=== PATIENT | male | born 1955 | race Caucasian/White ===

== ENCOUNTER → 2021-05-21 12:45 | Outpatient (BNVA) | payer MEDICARE, MEDICAID, SELFPAY | PROVIDERS: PCP Internal Medicine; Visit Provider Nurse Practitioner Family | DX: M47.22 Other spondylosis with radiculopathy, cervical region (principal); M79.18 Myalgia, other site; M17.0 Bilateral primary osteoarthritis of knee; M19.011 Primary osteoarthritis, right shoulder | CPT/HCPCS: 99202 ==

== ENCOUNTER 2021-05-22 11:46 | Outpatient (REF) | payer MEDICARE, MEDICAID, SELFPAY | END 2021-05-22 11:47 | disposition home or self-care (01) | LOC: HO.LAB 11:46 | PROVIDERS: PCP Internal Medicine; Visit Provider Nurse Practitioner Family | DX: Z13.89 Encounter for screening for other disorder (principal) ==

== ENCOUNTER 2021-05-28 17:40 | Outpatient (REF) | payer MEDICARE, MEDICAID, SELFPAY ==
--- NOTE | ~2021-05-28 | MR_ITS ---
EXAMINATION: MR CERVICAL SPINE WITHOUT CONTRAST CLINICAL INFORMATION: Other spondylosis with radiculopathy. COMPARISON: None available. TECHNIQUE: MRI of the cervical spine was performed using routine sequences without contrast. FINDINGS: The cervical vertebral bodies maintain normal heights and alignment. There is advanced disc height loss at C4-C5, C5-C6, C6-C7, and C7-T1. Prominent anterior endplate osteophytes are seen from C4 to C7. Possible myelomalacia seen in the right hemicord at the C4-C5 level. The imaged portions of the intracranial contents appear normal. The extraspinal soft tissues appear normal. SPINAL LEVELS: C2-C3: No posterior disc abnormality. No spinal canal or neural foraminal stenosis. C3-C4: Disc bulging with left more than right uncovertebral hypertrophy and left more than right facet arthropathy. Severe left and moderate to severe right neural foraminal stenosis. Mild spinal canal stenosis. C4-C5: Disc osteophyte complex with ligamentum flavum infolding causing severe spinal canal stenosis with cord deformity. Possible myelomalacia. Severe bilateral neural foraminal stenosis related to uncovertebral hypertrophy and facet arthropathy. C5-C6: Disc osteophyte complex with ligamentum flavum infolding causing severe spinal canal stenosis with cord deformity. Uncovertebral hypertrophy and facet arthropathy results in severe bilateral neural foraminal stenosis. C6-C7: Disc osteophyte complex results in moderate to severe spinal canal stenosis with ventral cord flattening. Uncovertebral hypertrophy and facet arthropathy results in severe bilateral neural foraminal stenosis. C7-T1: Disc osteophyte complex results in mild spinal canal stenosis. Uncovertebral hypertrophy and facet arthropathy results in severe left more than right neural foraminal stenosis. At T2-T3 there is disc height loss with disc bulging extending into the right more the left neural foramina resulting in moderate to severe right and mild to moderate left neural foraminal stenosis. Edema is seen across the endplates. MR/MR cervical spine wo con IMPRESSION: Advanced multilevel degenerative spondylosis with high-grade narrowing of the spinal canal with associated cord deformity seen at C4-C5, C5-C6, and C6-C7. Multilevel high-grade neural foraminal stenosis is also present.
== END 2021-05-28 17:41 | disposition home or self-care (01) ==
LOC: HO.MRI 17:40
PROVIDERS: PCP Internal Medicine; Visit Provider Nurse Practitioner Family
DX: M47.22 Other spondylosis with radiculopathy, cervical region (principal)
CPT/HCPCS: 72141

== ENCOUNTER → 2021-06-10 11:21 | Outpatient (BNVA) | payer MEDICARE, MEDICAID, SELFPAY | PROVIDERS: PCP Internal Medicine; Visit Provider Nurse Practitioner Family | DX: M47.22 Other spondylosis with radiculopathy, cervical region (principal); M79.18 Myalgia, other site; M17.0 Bilateral primary osteoarthritis of knee; M19.011 Primary osteoarthritis, right shoulder | CPT/HCPCS: 99212 ==

== ENCOUNTER → 2021-06-25 09:22 | Outpatient (BNVA) | payer MEDICARE, MEDICAID, SELFPAY | PROVIDERS: Visit Provider Nurse Practitioner Family | DX: M47.22 Other spondylosis with radiculopathy, cervical region (principal); M79.18 Myalgia, other site; M17.0 Bilateral primary osteoarthritis of knee; M19.011 Primary osteoarthritis, right shoulder | CPT/HCPCS: 99212 ==

== ENCOUNTER → 2021-07-23 15:33 | Outpatient (BNVA) | payer MEDICARE, MEDICAID, SELFPAY | PROVIDERS: PCP Internal Medicine; Visit Provider Nurse Practitioner Family | DX: Z51.81 Encounter for therapeutic drug level monitoring (principal); M79.18 Myalgia, other site; M17.0 Bilateral primary osteoarthritis of knee; M19.011 Primary osteoarthritis, right shoulder | CPT/HCPCS: 99212 ==

== ENCOUNTER → 2021-08-20 14:55 | Outpatient (BNVA) | payer MEDICARE, MEDICAID, SELFPAY | PROVIDERS: Visit Provider Nurse Practitioner Family | DX: M47.22 Other spondylosis with radiculopathy, cervical region (principal); M79.18 Myalgia, other site; M17.0 Bilateral primary osteoarthritis of knee; M19.011 Primary osteoarthritis, right shoulder | CPT/HCPCS: 99212 ==

== ENCOUNTER → 2021-09-17 12:52 | Outpatient (BNVA) | payer MEDICARE, MEDICAID, SELFPAY | PROVIDERS: Visit Provider Nurse Practitioner Family | DX: Z51.81 Encounter for therapeutic drug level monitoring (principal); M47.22 Other spondylosis with radiculopathy, cervical region; M79.18 Myalgia, other site; M17.0 Bilateral primary osteoarthritis of knee; M19.011 Primary osteoarthritis, right shoulder | CPT/HCPCS: 99212 ==

== ENCOUNTER → 2021-10-15 14:29 | Outpatient (BNVA) | payer MEDICARE, MEDICAID, SELFPAY | PROVIDERS: Visit Provider Nurse Practitioner Family | DX: Z51.81 Encounter for therapeutic drug level monitoring (principal); M47.22 Other spondylosis with radiculopathy, cervical region; M79.18 Myalgia, other site; M17.0 Bilateral primary osteoarthritis of knee; M19.011 Primary osteoarthritis, right shoulder | CPT/HCPCS: 99212 ==

== ENCOUNTER → 2021-11-19 11:02 | Outpatient (BNVA) | payer MEDICARE, MEDICAID, SELFPAY | PROVIDERS: PCP Internal Medicine; Visit Provider Nurse Practitioner Family | DX: Z51.81 Encounter for therapeutic drug level monitoring (principal); F11.20 Opioid dependence, uncomplicated; M47.22 Other spondylosis with radiculopathy, cervical region; M79.18 Myalgia, other site; M17.0 Bilateral primary osteoarthritis of knee; M19.011 Primary osteoarthritis, right shoulder | CPT/HCPCS: 99212 ==

== ENCOUNTER → 2021-12-17 15:00 | Outpatient (BNVA) | payer MEDICARE, MEDICAID, SELFPAY | PROVIDERS: PCP Internal Medicine; Visit Provider Nurse Practitioner Family | DX: M47.22 Other spondylosis with radiculopathy, cervical region (principal); M79.18 Myalgia, other site; M17.0 Bilateral primary osteoarthritis of knee; M19.011 Primary osteoarthritis, right shoulder; Z79.891 Long term (current) use of opiate analgesic; Z79.4 Long term (current) use of insulin; Z79.899 Other long term (current) drug therapy | CPT/HCPCS: 99212 ==

== ENCOUNTER → 2022-01-14 14:20 | Outpatient (BNVA) | payer MEDICARE, MEDICAID, SELFPAY | PROVIDERS: PCP Internal Medicine; Visit Provider Nurse Practitioner Family | DX: Z51.81 Encounter for therapeutic drug level monitoring (principal); F11.20 Opioid dependence, uncomplicated; M47.22 Other spondylosis with radiculopathy, cervical region; M79.18 Myalgia, other site; M17.0 Bilateral primary osteoarthritis of knee; M19.011 Primary osteoarthritis, right shoulder | CPT/HCPCS: 99212 ==

== ENCOUNTER → 2022-01-30 09:20 | Outpatient (BNVA) | payer MEDICARE, MEDICAID, SELFPAY | PROVIDERS: PCP Internal Medicine; Visit Provider Nurse Practitioner Family | DX: Z51.81 Encounter for therapeutic drug level monitoring (principal); F11.20 Opioid dependence, uncomplicated; M47.22 Other spondylosis with radiculopathy, cervical region; M79.18 Myalgia, other site; M17.0 Bilateral primary osteoarthritis of knee; M19.011 Primary osteoarthritis, right shoulder | CPT/HCPCS: 99212 ==

== ENCOUNTER → 2022-03-06 14:41 | Outpatient (BNVA) | payer MEDICARE, MEDICAID, SELFPAY | PROVIDERS: PCP Internal Medicine; Visit Provider Nurse Practitioner Family | DX: Z13.89 Encounter for screening for other disorder (principal) ==

== ENCOUNTER → 2022-10-07 14:28 | Outpatient (BNVA) | payer MEDICARE, MEDICAID, SELFPAY | PROVIDERS: PCP Internal Medicine; Visit Provider Anesthesiology | DX: M47.22 Other spondylosis with radiculopathy, cervical region (principal); M79.18 Myalgia, other site; M17.0 Bilateral primary osteoarthritis of knee; M19.011 Primary osteoarthritis, right shoulder | CPT/HCPCS: 99212 ==

== ENCOUNTER → 2022-11-25 14:12 | Outpatient (BNVA) | payer MEDICARE, MEDICAID, SELFPAY | PROVIDERS: PCP Internal Medicine; Visit Provider Anesthesiology | DX: M47.22 Other spondylosis with radiculopathy, cervical region (principal); M79.18 Myalgia, other site; M17.0 Bilateral primary osteoarthritis of knee; M19.011 Primary osteoarthritis, right shoulder | CPT/HCPCS: 99212 ==

== ENCOUNTER → 2022-12-10 13:43 | Outpatient (BNVA) | payer MEDICARE, MEDICAID, SELFPAY | PROVIDERS: PCP Internal Medicine; Visit Provider Anesthesiology | DX: Z51.81 Encounter for therapeutic drug level monitoring (principal); F11.20 Opioid dependence, uncomplicated | CPT/HCPCS: 99211 ==

== ENCOUNTER → 2023-01-06 15:34 | Outpatient (BNVA) | payer MEDICARE, MEDICAID, SELFPAY | PROVIDERS: PCP Internal Medicine; Visit Provider Anesthesiology | DX: Z51.81 Encounter for therapeutic drug level monitoring (principal); M17.0 Bilateral primary osteoarthritis of knee; M47.22 Other spondylosis with radiculopathy, cervical region; M79.18 Myalgia, other site; M19.011 Primary osteoarthritis, right shoulder | CPT/HCPCS: 99212 ==

== ENCOUNTER → 2023-02-03 15:30 | Outpatient (BNVA) | payer MEDICARE, MEDICAID, SELFPAY | PROVIDERS: PCP Internal Medicine; Visit Provider Anesthesiology | DX: M47.22 Other spondylosis with radiculopathy, cervical region (principal); M79.18 Myalgia, other site; M17.0 Bilateral primary osteoarthritis of knee; M19.011 Primary osteoarthritis, right shoulder; Z79.891 Long term (current) use of opiate analgesic | CPT/HCPCS: 99212 ==

== ENCOUNTER → 2023-03-03 14:46 | Outpatient (BNVA) | payer MEDICARE, MEDICAID, SELFPAY | PROVIDERS: PCP Internal Medicine; Visit Provider Anesthesiology | DX: Z51.81 Encounter for therapeutic drug level monitoring (principal); F11.20 Opioid dependence, uncomplicated | CPT/HCPCS: 99211 ==

== ENCOUNTER → 2023-03-31 14:46 | Outpatient (BNVA) | payer MEDICARE, MEDICAID, SELFPAY | PROVIDERS: PCP Internal Medicine; Visit Provider Anesthesiology | DX: M47.22 Other spondylosis with radiculopathy, cervical region (principal); M79.18 Myalgia, other site; M17.0 Bilateral primary osteoarthritis of knee; M19.011 Primary osteoarthritis, right shoulder; Z79.891 Long term (current) use of opiate analgesic | CPT/HCPCS: 99212 ==

== ENCOUNTER → 2023-04-30 13:04 | Outpatient (BNVA) | payer MEDICARE, MEDICAID, SELFPAY | PROVIDERS: PCP Internal Medicine; Visit Provider Registered Nurse Emergency | DX: Z51.81 Encounter for therapeutic drug level monitoring (principal); M47.22 Other spondylosis with radiculopathy, cervical region; M79.18 Myalgia, other site; M17.0 Bilateral primary osteoarthritis of knee; M19.011 Primary osteoarthritis, right shoulder | CPT/HCPCS: 99212 ==

== ENCOUNTER 2023-05-28 13:23 | Outpatient (AMB) | payer MEDICARE, MEDICAID, SELFPAY ==
[2023-05-28 13:32] VITALS: BP 124/60; PULSE 88; RESP 16; O2SAT 94; BMI 34.5
--- NOTE | 2023-05-28 13:32 | MHC.OFFVIS ---
Intake Vital Signs 05/28/23 13:32 Height 5 ft 10 in Weight 240 lb 7 oz BMI 34.5 BP 124/60 Blood Pressure Location Lt brachial Position Sitting Respiration 16 Pulse 88 Pulse Source Pulse Oximeter Pulse Oximetry (%) 94 Oxygen Delivery Method Room Air Intake Visit Reasons: Pill Count Allergies No Known Allergies Allergy (Verified 05/28/23 13:32) HPI HPI Comments History of Present Illness Details Madi is a very pleasant 68 year old male who presents to the office today for follow up chronic pain and chronic opioid therapy management. Patient is prescribed oxycodone 10mg po tid prn. Patient arrived today with the expectation of having 72 pills, he presented 80 pills which were counted in the presence of two staff members and returned to the patient in the original prescription bottle. This demonstrates responsible attitude toward patient's opioid medications. Pain is reported today as 7/10 and last dose of pain medication was taken at 10:00 this morning. Pain is adequately managed on current opioid regimen. Patient denies any recent changes or exacerbations of chronic back pain and states sleep, mobility and overall level of functioning improved with use of his opioid medication. Patient denies side effects including somnolence, constipation, itching, dyspnea, rash, dizziness or weakness. Previous visit with Dr Turner: h/o neck pain low back pain as well as right shoulder and bilateral knee pain, which have been present for many years.?the neck pain starts midline and radiates to bilateral shoulders, with associated numbness down the entire left arm and moderate pain from the shoulder to the elbow.? He denies any significant weakness of bilateral upper extremities.? In the past he was under the care of Dr. Diaz and managed with morphine 30 mg twice a day as well as multiple injections and RFA for the lumbar spine.? Most recently, he has been seen at [email or web address].? They have treated him with injections, the last being a few months ago with a left-sided neck injection.? He reports significant pain relief for the 1st month and then slowly his pain returns by the end of the 2nd month.? He reports seeing a neurosurgeon in the past and was told he was not a surgical candidate. He also reports trialing buprenorphine in the past with Dr. Diaz, which he states had negative effect on his motor function.? He has tried and failed physical therapy multiple times.? In the past he had good relief with chiropractic manipulation but has not done this for many year.? For quite some time he was in our office on chronic opioid program,?He was suspended in our office from opioid program because he had a pill count which was 20 pills short.? He was suspended for 6 months because he was low risk for opioid addiction.? If he will be found to have in discrepancies with his pill count again his suspension now will before the full year. Review of Systems Const All systems reviewed & are unremarkable except as noted in HPI and below Physical Exam Vital Signs: Last Vital Signs Pulse 88 05/28/23 13:32 Resp 16 05/28/23 13:32 BP 124/60 05/28/23 13:32 Pulse Ox 94 05/28/23 13:32 Oxygen Delivery Method Room Air 05/28/23 13:32 BMI result Body Mass Index 34.5 Const Other: General: awake, alert, oriented. Answers questions appropriately. Fully engaged in examination. Skin: warm, dry, intact without visible rashes or lesions. HEENT: Normocephalic. Conjuntivae clear without exudate. Sclera non-icteric. Hearing intact. Cardiac: External chest normal in appearance. Respiratory: No signs of trauma. No signs of respiratory distress. No cough, audible wheezing or stridor. Abdomen: without gross distension. MS: No obvious swelling or deformities. Able to transition from sit to stand unassisted. Ambulates with bilaterally normal heel strike and toe off Neurological: Oriented to person, place, time and situation. Thought process intact. No gait abnormalities appreciated. Psychiatric: Appropriate mood and affect. Good judgment and insight. Assessment & Plan Assessment & Plan (1) Spondylosis of cervical spine with radiculopathy: Code(s): M47.22 - Other spondylosis with radiculopathy, cervical region (2) Myofascial pain: Code(s): M79.18 - Myalgia, other site (3) Osteoarthritis of knees, bilateral: Code(s): M17.0 - Bilateral primary osteoarthritis of knee (4) Osteoarthritis of right shoulder: Code(s): M19.011 - Primary osteoarthritis, right shoulder Plan Masspat was reviewed and without concerns. No obvious signs of diversion, abuse or misuse of the opioid medications. Will send in prescription for oxycodone 10mg po tid prn with an advanced date of 06/22/2023. Patient to follow-up in the office in 1 month, sooner if needed. All questions and concerns have been answered and patient agrees with the plan. Note: He was suspended from the opioid program previously because he was 20 pills short. His risk was mild and he was suspended for 6 month. If there is a second violation his suspension will be for a full year. Medications: Refilled oxycodone Partial Fill upon patient request. 10 mg PO TID PRN 90 tabs 0RF pain 30 days M17.0 - Bilateral primary osteoarthritis of knee, M19.011 - Primary osteoarthritis, right shoulder, M48.02 - Spinal stenosis, cervical region, M79.18 - Myalgia, other site Coding Level of Care Code Est Pt Level 3 (03537) Diagnoses Spondylosis of cervical spine with radiculopathy M47.22 Myofascial pain M79.18 Osteoarthritis of knees, bilateral M17.0 Osteoarthritis of right shoulder M19.011
== END 2023-05-28 13:36 | disposition home or self-care (01) ==
PROVIDERS: PCP Internal Medicine; Visit Provider Registered Nurse Emergency
DX: M47.22 Other spondylosis with radiculopathy, cervical region (principal); M79.18 Myalgia, other site; M17.0 Bilateral primary osteoarthritis of knee; M19.011 Primary osteoarthritis, right shoulder
CPT/HCPCS: 99213

== ENCOUNTER → 2023-05-28 13:23 | Outpatient (BNVA) | payer MEDICARE, MEDICAID, SELFPAY | PROVIDERS: PCP Internal Medicine; Visit Provider Registered Nurse Emergency | DX: M19.011 Primary osteoarthritis, right shoulder (principal); M17.0 Bilateral primary osteoarthritis of knee; M47.22 Other spondylosis with radiculopathy, cervical region; M79.18 Myalgia, other site; Z79.891 Long term (current) use of opiate analgesic | CPT/HCPCS: 99212 ==

== ENCOUNTER → 2023-06-25 13:17 | Outpatient (BNVA) | payer MEDICARE, MEDICAID, SELFPAY | PROVIDERS: PCP Internal Medicine; Visit Provider Registered Nurse Emergency | DX: Z51.81 Encounter for therapeutic drug level monitoring (principal); F11.20 Opioid dependence, uncomplicated; M47.22 Other spondylosis with radiculopathy, cervical region; M79.18 Myalgia, other site; M17.0 Bilateral primary osteoarthritis of knee; M19.011 Primary osteoarthritis, right shoulder; M16.12 Unilateral primary osteoarthritis, left hip | CPT/HCPCS: 99212 ==

== ENCOUNTER 2023-06-25 13:18 | Outpatient (AMB) | payer MEDICARE, MEDICAID, SELFPAY ==
[2023-06-25 13:27] VITALS: BP 100/58; PULSE 78; RESP 18; O2SAT 93; BMI 34.7
--- NOTE | 2023-06-25 13:27 | A.OFFVIS_ITS ---
Intake Vital Signs 06/25/23 13:27 Height 5 ft 10 in Weight 242 lb BMI 34.7 BP 100/58 L Blood Pressure Location Rt brachial Position Sitting Respiration 18 Pulse 78 Pulse Source Pulse Oximeter Pulse Oximetry (%) 93 Oxygen Delivery Method Room Air Intake Visit Reasons: Pill count Allergies No Known Allergies Allergy (Verified 06/25/23 13:28) HPI HPI Comments History of Present Illness Details Madi is a very pleasant 68 year old male who presents to the office today for follow up chronic pain and chronic opioid therapy management. Patient is prescribed oxycodone 10mg po tid prn. Patient arrived today with the expectation of having 78 pills, he presented 84 pills which were counted in the presence of two staff members and returned to the patient in the original prescription bottle. This demonstrates responsible attitude toward patient's opioid medications. Pain is reported today as 9/10 and last dose of pain medication was taken at 9:30 this morning. Pain is adequately managed on current opioid regimen. Patient denies any recent changes or exacerbations of chronic back pain and states sleep, mobility and overall level of functioning improved with use of his opioid medication. Patient denies side effects including somnolence, constipation, itching, dyspnea, rash, dizziness or weakness. Today patient c/o left hip pain, he had xray at pcp office and blood work earlier this week. States he was told xray did not show anything concerning and A1c was 7.0. He has been suffering with left hip pain for several weeks, worse with walking and standing. States will improve if he rests but is negatively impacting function, mobility, activity of daily living and social interactions. Patient has never received injections to the left hip. Previous visit with Dr Turner: h/o neck pain low back pain as well as right shoulder and bilateral knee pain, which have been present for many years.?the neck pain starts midline and radiates to bilateral shoulders, with associated numbness down the entire left arm and moderate pain from the shoulder to the elbow.? He denies any significant weakness of bilateral upper extremities.? In the past he was under the care of Dr. Diaz and managed with morphine 30 mg twice a day as well as multiple injections and RFA for the lumbar spine.? Most recently, he has been seen at [facility].? They have treated him with inje ctions, the last being a few months ago with a left-sided neck injection.? He reports significant pain relief for the 1st month and then slowly his pain returns by the end of the 2nd month.? He reports seeing a neurosurgeon in the past and was told he was not a surgical candidate. He also reports trialing buprenorphine in the past with Dr. Diaz, which he states had negative effect on his motor function.? He has tried and failed physical therapy multiple times.? In the past he had good relief with chiropractic manipulation but has not done this for many year.? For quite some time he was in our office on chronic opioid program,?He was suspended in our office from opioid program because he had a pill count which was 20 pills short.? He was suspended for 6 months because he was low risk for opioid addiction.? If he will be found to have in discrepancies with his pill count again his suspension now will before the full year. Review of Systems Const All systems reviewed & are unremarkable except as noted in HPI and below Physical Exam Vital Signs: Last Vital Signs Pulse 78 06/25/23 13:27 Resp 18 06/25/23 13:27 BP 100/58 L 06/25/23 13:27 Pulse Ox 93 06/25/23 13:27 Oxygen Delivery Method Room Air 06/25/23 13:27 BMI result Body Mass Index 34.7 General: awake, alert, oriented. Answers questions appropriately. Fully engaged in examination. Skin: warm, dry, intact without visible rashes or lesions. HEENT: Normocephalic. Hearing intact. Cardiac: External chest normal in appearance. Respiratory: No cough, audible wheezing or stridor. Abdomen: without gross distension. MS: decreased ROM left hip, pain with I/E rotation. Able to transition from sit to stand unassisted. Ambulates with bilaterally normal heel strike and toe off Neurological: Oriented to person, place, time and situation. Thought process intact. Psychiatric: Appropriate mood and affect. Good judgment and insight. Const Other: Assessment & Plan Assessment & Plan (1) Spondylosis of cervical spine with radiculopathy: Code(s): M47.22 - Other spondylosis with radiculopathy, cervical region (2) Myofascial pain: Code(s): M79.18 - Myalgia, other site (3) Osteoarthritis of knees, bilateral: Code(s): M17.0 - Bilateral primary osteoarthritis of knee (4) Osteoarthritis of right shoulder: Code(s): M19.011 - Primary osteoarthritis, right shoulder (5) Arthritis of left hip: Code(s): M16.12 - Unilateral primary osteoarthritis, left hip Corazon Barraza presented back to the office today for follow up chronic pain, chronic opioid management and c/o left hip pain. Left hip pain consistent with left hip arthritis. Records including recent PCP note and xray results have been requested. Will schedule for fluoroscopy guided left hip intra-articular injection with local anesthetic. Masspat was reviewed and without concerns. No obvious signs of diversion, abuse or misuse of the opioid medications. Will send in prescription for oxycodone 10mg po tid prn with an advanced date of 07/22/2023. Patient to follow-up in the office in 1 month, sooner if needed. All questions and concerns have been answered and patient agrees with the plan. Note: He was suspended from the opioid program previously because he was 20 pills short. His risk was mild and he was suspended for 6 month. If there is a second violation his suspension will be for a full year. Medications: Refilled oxycodone Partial Fill upon patient request. 10 mg PO TID 30 days PRN 90 tabs 0RF pain M17.0 - Bilateral primary osteoarthritis of knee, M19.011 - Primary osteoarthritis, right shoulder, M48.02 - Spinal stenosis, cervical region, M79.18 - Myalgia, other site Coding Level of Care Code Est Pt Level 4 (06569) Diagnoses Spondylosis of cervical spine with radiculopathy M47.22 Myofascial pain M79.18 Osteoarthritis of knees, bilateral M17.0 Osteoarthritis of right shoulder M19.011 Arthritis of left hip M16.12
== END 2023-06-25 13:32 | disposition home or self-care (01) ==
PROVIDERS: PCP Internal Medicine; Visit Provider Registered Nurse Emergency
DX: M47.22 Other spondylosis with radiculopathy, cervical region (principal); M79.18 Myalgia, other site; M17.0 Bilateral primary osteoarthritis of knee; Z79.891 Long term (current) use of opiate analgesic; M19.011 Primary osteoarthritis, right shoulder
CPT/HCPCS: 99214

== ENCOUNTER 2023-07-13 06:27 | Outpatient (REF) | payer MEDICARE, MEDICAID, SELFPAY ==
--- NOTE | ~2023-07-13 | FL_ITS ---
EXAMINATION: XR FLUOROSCOPY WITH IMAGES CLINICAL INFORMATION: Unilateral primary osteoarthritis, left hip. COMPARISON: None available. TECHNIQUE: Fluoroscopy Supervised By: Dr. Emerson Turner. Fluoroscopy Time: 0.3 minutes. Cumulative Dose: 7.72 mGy. DAP: 0.134 Gycm2. Images: 1. FINDINGS: Image demonstrates needle placement and contrast injection of the right hip joint FL/FL guidance in treatment room IMPRESSION: Fluoroscopy guidance for right hip injection.
== END 2023-07-13 06:28 | disposition home or self-care (01) ==
LOC: CF 06:27
PROVIDERS: Visit Provider Anesthesiology
DX: M16.12 Unilateral primary osteoarthritis, left hip (principal); M47.22 Other spondylosis with radiculopathy, cervical region; M79.18 Myalgia, other site; M17.0 Bilateral primary osteoarthritis of knee; M19.011 Primary osteoarthritis, right shoulder
CPT/HCPCS: 20610; J3301

== ENCOUNTER 2023-07-13 14:13 | Outpatient (AMB) | payer MEDICARE, MEDICAID, SELFPAY ==
--- NOTE | 2023-07-13 14:35 | A.OFFVIS_ITS ---
Intake Vital Signs 07/13/23 14:43 07/13/23 15:17 Height 5 ft 10 in 5 ft 10 in Weight 242 lb 242 lb BMI 34.7 34.7 BP 140/60 H 132/76 Blood Pressure Location Lt brachial Rt brachial Position Sitting Sitting Respiration 14 14 Pulse 88 82 Pulse Source Pulse Oximeter Pulse Oximeter Pulse Oximetry (%) 97 95 Oxygen Delivery Method Room Air Room Air Comment pre-op post-op Intake Visit Reasons: L INTRA-ARTICULAR HIP INJ/LOCAL Allergies No Known Allergies Allergy (Verified 07/13/23 15:18) Physical Exam Vital Signs: Last Vital Signs Pulse 82 07/13/23 15:17 Resp 14 07/13/23 15:17 BP 132/76 07/13/23 15:17 Pulse Ox 95 07/13/23 15:17 Oxygen Delivery Method Room Air 07/13/23 15:17 BMI result Body Mass Index 34.7 Assessment & Plan Assessment & Plan (1) Spondylosis of cervical spine with radiculopathy: Code(s): M47.22 - Other spondylosis with radiculopathy, cervical region (2) Myofascial pain: Code(s): M79.18 - Myalgia, other site (3) Osteoarthritis of knees, bilateral: Code(s): M17.0 - Bilateral primary osteoarthritis of knee (4) Osteoarthritis of right shoulder: Code(s): M19.011 - Primary osteoarthritis, right shoulder (5) Arthritis of left hip: Code(s): M16.12 - Unilateral primary osteoarthritis, left hip Plan: Left hip steroid injection. Informed consent was explained to the patient. All questions were explained and answered. The patient was taken inside of the operating room where she was positioned right lateral decubitus on operating table.. Time-out was performed delineating patient's name and date of , correct site, side, the nature of the procedure, patient's allergy, preoperative antibiotic if needed, need for VT prophylaxis.. All operating room staff was participating in OR time-out pr ocedure. Left hip area of the patient was prepped with ChloraPrep and draped with sterile towels. C-arm was brought over the operating field and picture of left and right lateral views of the bilateral hip joints were delineated on the screen. The smaller joint silhouette was chosen as the target. Projection of the left trochanter to the skin was chosen as the initial needle insertion point. After that the skin and subcutaneous tissues was anesthetized with 2% lidocaine 2.5 mL. 22 gauge 5 in long needle was inserted through the skin and started to advance to the joint space under intermittent lateral and anterior posterior views. When needle entered the capsule of the joint small amount of the contrast was injected delineating intra-articular space. After that treatment solution containing 3 cc of lidocaine 2%, 2 cc of bupivacaine 0.5% and 40 mg of Kenalog was injected into the joint. The needle was withdrawn sterile dressing was applied.The patient tolerated procedure well Plan Madi presented back to the office today for follow up chronic pain, chronic opioid management and c/o left hip pain. Left hip pain consistent with left hip arthritis. Records including recent PCP note and xray results have been requested. Will schedule for fluoroscopy guided left hip intra-articular injection with local anesthetic. Masspat was reviewed and without concerns. No obvious signs of diversion, abuse or misuse of the opioid medications. Will send in prescription for oxycodone 10mg po tid prn with an advanced date of 07/22/2023. Patient to follow-up in the office in 1 month, sooner if needed. All questions and concerns have been answered and patient agrees with the plan. Note: He was suspended from the opioid program previously because he was 20 pills short. His risk was mild and he was suspended for 6 month. If there is a second violation his suspension will be for a full year. Orders: Orders FL guidance in treatment room Today M16.12 - Unilateral primary osteoarthritis, left hip Coding Level of Care Code Procedure Only Diagnoses Spondylosis of cervical spine with radiculopathy M47.22 Myofascial pain M79.18 Osteoarthritis of knees, bilateral M17.0 Osteoarthritis of right shoulder M19.011 Arthritis of left hip M16.12
[2023-07-13 14:43] VITALS: BP 140/60; PULSE 88; RESP 14; O2SAT 97; BMI 34.7
[2023-07-13 15:17] VITALS: BP 132/76; PULSE 82; RESP 14; O2SAT 95; BMI 34.7
== END 2023-07-13 15:02 | disposition home or self-care (01) ==
LOC: HO.PMCPRC 14:13
PROVIDERS: PCP Internal Medicine; Visit Provider Anesthesiology
DX: M16.12 Unilateral primary osteoarthritis, left hip (principal)
CPT/HCPCS: 20610; 77002

== ENCOUNTER 2023-08-10 12:48 | Outpatient (AMB) | payer MEDICARE, MEDICAID, SELFPAY ==
[2023-08-10 13:12] VITALS: BP 148/68; PULSE 88; RESP 18; O2SAT 93; BMI 34.4
--- NOTE | 2023-08-10 13:12 | MHC.OFFVIS ---
Intake Vital Signs 08/10/23 13:12 Height 5 ft 10 in Weight 240 lb BMI 34.4 BP 148/68 H Blood Pressure Location Lt brachial Position Sitting Respiration 18 Pulse 88 Pulse Source Pulse Oximeter Pulse Oximetry (%) 93 Oxygen Delivery Method Room Air Intake Visit Reasons: Pill Count Allergies No Known Allergies Allergy (Verified 08/10/23 13:12) HPI HPI Comments History of Present Illness Details Madi is a very pleasant 68 year old male who presents to the office today for follow up chronic pain and chronic opioid management. Patient is prescribed oxycodone 10mg po tid prn. Patient arrived today with the expectation of having 33 pills, he presented 34 pills which were counted in the presence of two staff members and returned to the patient in the original prescription bottle. This demonstrates responsible attitude toward patient's opioid medications. Pain is reported today as 7/10 and last dose of pain medication was taken at 11:00 this morning. Pain is adequately managed on current opioid regimen. Patient denies any recent changes or exacerbations of chronic back pain and states sleep, mobility and overall level of functioning improved with use of his opioid medication. Patient denies side effects including somnolence, constipation, itching, dyspnea, rash, dizziness or weakness. Since last visit patient had fluoroscopy guided left hip intra-articular injection with local anesthetic on 07/13/23. He tolerated the procedure well and reports his left hip pain has been much better since the injection. He reports still has good days and bad days but overall pain, function and mobility are all improved. Prior visit with Dr Turner: h/o neck pain low back pain as well as right shoulder and bilateral knee pain, which have been present for many years.?the neck pain starts midline and radiates to bilateral shoulders, with associated numbness down the entire left arm and moderate pain from the shoulder to the elbow.? He denies any significant weakness of bilateral upper extremities.? In the past he was under the care of Dr. Diaz and managed with morphine 30 mg twice a day as well as multiple injections and RFA for the lumbar spine.? Most recently, he has been seen at [facility].? They have treated him with injections, the last being a few months ago with a left-sided neck injection.? He reports significant pain relief for the 1st month and then slowly his pain returns by the end of the 2nd month.? He reports seeing a neurosurgeon in the past and was told he was not a surgical candidate. He also reports trialing buprenorphine in the past with Dr. Diaz, which he states had negative effect on his motor function.? He has tried and failed physical therapy multiple times.? In the past he had good relief with chiropractic manipulation but has not done this for many year.? For quite some time he was in our office on chronic opioid program,?He was suspended in our office from opioid program because he had a pill count which was 20 pills short.? He was suspended for 6 months because he was low risk for opioid addiction.? If he will be found to have in discrepancies with his pill count again his suspension now will before the full year. Review of Systems Const All systems reviewed & are unremarkable except as noted in HPI and below Physical Exam Vital Signs: Last Vital Signs Pulse 88 08/10/23 13:12 Resp 18 08/10/23 13:12 BP 148/68 H 08/10/23 13:12 Pulse Ox 93 08/10/23 13:12 Oxygen Delivery Method Room Air 08/10/23 13:12 BMI result Body Mass Index 34.4 General: awake, alert, oriented. Answers questions appropriately. Fully engaged in examination. Skin: warm, dry, intact without visible rashes or lesions. HEENT: Normocephalic. Hearing intact. Cardiac: External chest normal in appearance. Respiratory: No cough, audible wheezing or stridor. Abdomen: without gross distension. MS: Able to transition from sit to stand unassisted. Ambulates with bilaterally normal heel strike and toe off Neurological: Oriented to person, place, time and situation. Thought process intact. Psychiatric: Appropriate mood and affect. Good judgment and insight. Const Other: Assessment & Plan Assessment & Plan (1) Spondylosis of cervical spine with radiculopathy: Code(s): M47.22 - Other spondylosis with radiculopathy, cervical region (2) Myofascial pain: Code(s): M79.18 - Myalgia, other site (3) Osteoarthritis of knees, bilateral: Code(s): M17.0 - Bilateral primary osteoarthritis of knee (4) Osteoarthritis of right shoulder: Code(s): M19.011 - Primary osteoarthritis, right shoulder (5) Arthritis of left hip: Code(s): M16.12 - Unilateral primary osteoarthritis, left hip Plan Madi presented back to the office today for follow up chronic pain and chronic opioid management. Masspat was reviewed and without concerns. No obvious signs of diversion, abuse or misuse of the opioid medications. Will send in prescription for oxycodone 10mg po tid prn with an advanced date of 08/22/2023. Patient to follow-up in the office in 1 month, sooner if needed. All questions and concerns have been answered and patient agrees with the plan. Note: He was suspended from the opioid program previously because he was 20 pills short. His risk was mild and he was suspended for 6 month. If there is a second violation his suspension will be for a full year. Medications: Refilled oxycodone Partial Fill upon patient request. 10 mg PO TID 30 days PRN 90 tabs 0RF pain M17.0 - Bilateral primary osteoarthritis of knee, M19.011 - Primary osteoarthritis, right shoulder, M48.02 - Spinal stenosis, cervical region, M79.18 - Myalgia, other site Coding Level of Care Code Est Pt Level 3 (52166) Diagnoses Spondylosis of cervical spine with radiculopathy M47.22 Myofascial pain M79.18 Osteoarthritis of knees, bilateral M17.0 Osteoarthritis of right shoulder M19.011 Arthritis of left hip M16.12
== END 2023-08-10 13:18 | disposition home or self-care (01) ==
PROVIDERS: PCP Internal Medicine; Visit Provider Registered Nurse Emergency
DX: M47.22 Other spondylosis with radiculopathy, cervical region (principal); M79.18 Myalgia, other site; M17.0 Bilateral primary osteoarthritis of knee; M19.011 Primary osteoarthritis, right shoulder; M16.12 Unilateral primary osteoarthritis, left hip
CPT/HCPCS: 99213

== ENCOUNTER → 2023-08-10 12:48 | Outpatient (BNVA) | payer MEDICARE, MEDICAID, SELFPAY | PROVIDERS: PCP Internal Medicine; Visit Provider Registered Nurse Emergency | DX: M16.12 Unilateral primary osteoarthritis, left hip (principal); M17.0 Bilateral primary osteoarthritis of knee; M19.011 Primary osteoarthritis, right shoulder; M47.22 Other spondylosis with radiculopathy, cervical region; M79.18 Myalgia, other site; Z79.891 Long term (current) use of opiate analgesic | CPT/HCPCS: 99212 ==

== ENCOUNTER → 2023-08-17 14:23 | Outpatient (BNVA) | payer MEDICARE, MEDICAID, SELFPAY | PROVIDERS: PCP Internal Medicine; Visit Provider Registered Nurse Emergency ==

== ENCOUNTER 2023-09-07 13:36 | Outpatient (AMB) | payer MEDICARE, MEDICAID, SELFPAY ==
[2023-09-07 13:45] VITALS: BP 129/73; PULSE 84; RESP 14; O2SAT 94; BMI 34.4
--- NOTE | 2023-09-07 13:45 | A.OFFVIS_ITS ---
Intake Vital Signs 09/07/23 13:45 Height 5 ft 10 in Weight 240 lb BMI 34.4 BP 129/73 Blood Pressure Location Lt brachial Position Sitting Respiration 14 Pulse 84 Pulse Source Pulse Oximeter Pulse Oximetry (%) 94 Oxygen Delivery Method Room Air Intake Visit Reasons: Medication Count/LMOVM Allergies No Known Allergies Allergy (Verified 09/07/23 13:44) HPI HPI Comments History of Present Illness Details Madi is a very pleasant 68 year old male who presents to the office today for follow up chronic pain and chronic opioid management. Patient is prescribed oxycodone 10mg po tid prn. Patient arrived today with the expectation of having 39 pills, he presented 42 pills which were counted in the presence of two staff members and returned to the patient in the original prescription bottle. This demonstrates responsible attitude toward patient's opioid medications. Pain is reported today as 7/10 and last dose of pain medication was taken at 10:00 this morning. Pain is adequately managed on current opioid regimen. Patient denies any recent changes or exacerbations of chronic back pain and states sleep, mobility and overall level of functioning improved with use of his opioid medication. Patient denies side effects including somnolence, constipation, urinary retention, itching, dyspnea, rash, dizziness or weakness. Prior visit with Dr Turner: h/o neck pain low back pain as well as right shoulder and bilateral knee pain, which have been present for many years.?the neck pain starts midline and radiates to bilateral shoulders, with associated numbness down the entire left arm and moderate pain from the shoulder to the elbow.? He denies any significant weakness of bilateral upper extremities.? In the past he was under the care of Dr. Diaz and managed with morphine 30 mg twice a day as well as multiple injections and RFA for the lumbar spine.? Most recently, he has been seen at [facility].? They have treated him with injections, the last being a few months ago with a left-sided neck injection.? He reports significant pain relief for the 1st month and then slowly his pain returns by the end of the 2nd month.? He reports seeing a neurosurgeon in the past and was told he was not a surgical candidate. He also reports trialing buprenorphine in the past with Dr. Diaz, which he states had negative effect on his motor function.? He has tried and failed physical therapy multiple times.? In the past he had good relief with chiropractic manipulation but has not done this for many year.? For quite some time he was in our office on chronic opioid program,?He was suspended in our office from opioid program because he had a pill count which was 20 pills short.? He was suspended for 6 months because he was low risk for opioid addiction.? If he will be found to have in discrepancies with his pill count again his suspension now will before the full year. Review of Systems Const All systems reviewed & are unremarkable except as noted in HPI and below Physical Exam Vital Signs: Last Vital Signs Pulse 84 09/07/23 13:45 Resp 14 09/07/23 13:45 BP 129/73 09/07/23 13:45 Pulse Ox 94 09/07/23 13:45 Oxygen Delivery Method Room Air 09/07/23 13:45 BMI result Body Mass Index 34.4 General: awake, alert, oriented. Answers questions appropriately. Fully engaged in examination. Skin: warm, dry, intact without visible rashes or lesions. HEENT: Normocephalic. Hearing intact. Cardiac: External chest normal in appearance. Respiratory: No cough, audible wheezing or stridor. Abdomen: without gross distension. MS: Able to transition from sit to stand unassisted. Ambulates with bilaterally normal heel strike and toe off Neurological: Oriented to person, place, time and situation. Thought process intact. Psychiatric: Appropriate mood and affect. Good judgment and insight. Const Other: Assessment & Plan Assessment & Plan (1) Spondylosis of cervical spine with radiculopathy: Code(s): M47.22 - Other spondylosis with radiculopathy, cervical region (2) Myofascial pain: Code(s): M79.18 - Myalgia, other site (3) Osteoarthritis of knees, bilateral: Code(s): M17.0 - Bilateral primary osteoarthritis of knee (4) Osteoarthritis of right shoulder: Code(s): M19.011 - Primary osteoarthritis, right shoulder (5) Arthritis of left hip: Code(s): M16.12 - Unilateral primary osteoarthritis, left hip Corazon Barraza presented back to the office today for follow up chronic pain and chronic opioid management. Masspat was reviewed and without concerns. No obvious signs of diversion, abuse or misuse of the opioid medications. Will send in prescription for oxycodone 10mg po tid prn with an advanced date of 09/21/2023. Patient to follow-up in the office in 1 month, sooner if needed. All questions and concerns have been answered and patient agrees with the plan. Note: He was suspended from the opioid program previously because he was 20 pills short. His risk was mild and he was suspended for 6 month. If there is a second violation his suspension will be for a full year. Medications: Refilled oxycodone Partial Fill upon patient request. 10 mg PO TID PRN 90 tabs 0RF pain 30 days M17.0 - Bilateral primary osteoarthritis of knee, M19.011 - Primary osteoarthritis, right shoulder, M48.02 - Spinal stenosis, cervical region, M79.18 - Myalgia, other site Coding Level of Care Code Est Pt Level 3 (87443) Diagnoses Spondylosis of cervical spine with radiculopathy M47.22 Myofascial pain M79.18 Osteoarthritis of knees, bilateral M17.0 Osteoarthritis of right shoulder M19.011 Arthritis of left hip M16.12
== END 2023-09-07 13:49 | disposition home or self-care (01) ==
PROVIDERS: PCP Internal Medicine; Visit Provider Registered Nurse Emergency
DX: M47.22 Other spondylosis with radiculopathy, cervical region (principal); M79.18 Myalgia, other site; M17.0 Bilateral primary osteoarthritis of knee; M19.011 Primary osteoarthritis, right shoulder; M16.12 Unilateral primary osteoarthritis, left hip

== ENCOUNTER → 2023-09-07 13:36 | Outpatient (BNVA) | payer MEDICARE, MEDICAID, SELFPAY | PROVIDERS: PCP Internal Medicine; Visit Provider Registered Nurse Emergency | DX: Z51.81 Encounter for therapeutic drug level monitoring (principal); F11.20 Opioid dependence, uncomplicated; M47.22 Other spondylosis with radiculopathy, cervical region; M79.18 Myalgia, other site; M17.0 Bilateral primary osteoarthritis of knee; M19.011 Primary osteoarthritis, right shoulder; M16.12 Unilateral primary osteoarthritis, left hip | CPT/HCPCS: 99213 ==

== ENCOUNTER 2023-10-05 13:57 | Outpatient (AMB) | payer MEDICARE, MEDICAID, SELFPAY ==
[2023-10-05 14:11] VITALS: BP 113/90; PULSE 94; RESP 16; O2SAT 94; BMI 34.4
--- NOTE | 2023-10-05 14:11 | A.OFFVIS_ITS ---
Intake Vital Signs 10/05/23 14:11 Height 5 ft 10 in Weight 240 lb BMI 34.4 BP 113/90 H Blood Pressure Location Lt brachial Position Sitting Respiration 16 Pulse 94 Pulse Source Pulse Oximeter Pulse Oximetry (%) 94 Oxygen Delivery Method Room Air Intake Visit Reasons: Medication Count/no answer Allergies No Known Allergies Allergy (Verified 09/07/23 13:44) HPI HPI Comments History of Present Illness Details Madi is a very pleasant 68 year old male who presents to the office today for follow up chronic pain and chronic opioid management. Patient is prescribed oxycodone 10mg po tid prn. Patient arrived today with the expectation of having 45 pills, he presented 49 pills which were counted in the presence of two staff members and returned to the patient in the original prescription bottle. This demonstrates responsible attitude toward patient's opioid medications. Pain is reported today as 6/10 and last dose of pain medication was taken at 10:00 this morning. Pain is adequately managed on current opioid regimen. Patient denies any recent changes or exacerbations of chronic back pain and states sleep, mobility and overall level of functioning improved with use of his opioid medication. Patient denies side effects including somnolence, constipation, urinary retention, itching, dyspnea, rash, dizziness or weakness. Prior visit with Dr Turner: h/o neck pain low back pain as well as right shoulder and bilateral knee pain, which have been present for many years.?the neck pain starts midline and radiates to bilateral shoulders, with associated numbness down the entire left arm and moderate pain from the shoulder to the elbow.? He denies any significant weakness of bilateral upper extremities.? In the past he was under the care of Dr. Diaz and managed with morphine 30 mg twice a day as well as multiple injections and RFA for the lumbar spine.? Most recently, he has been seen at [facility].? They have treated him with injections, the last being a few months ago with a left-sided neck injection.? He reports significant pain relief for the 1st month and then slowly his pain returns by the end of the 2nd month.? He reports seeing a neurosurgeon in the past and was told he was not a surgical candidate. He also reports trialing buprenorphine in the past with Dr. Diaz, which he states had negative effect on his motor function.? He has tried and failed physical therapy multiple times.? In the past he had good relief with chiropractic manipulation but has not done this for many year.? For quite some time he was in our office on chronic opioid program,?He was suspended in our office from opioid program because he had a pill count which was 20 pills short.? He was suspended for 6 months because he was low risk for opioid addiction.? If he will be found to have in discrepancies with his pill count again his suspension now will before the full year. Review of Systems Const All systems reviewed & are unremarkable except as noted in HPI and below Physical Exam Vital Signs: Last Vital Signs Pulse 94 10/05/23 14:11 Resp 16 10/05/23 14:11 BP 113/90 H 10/05/23 14:11 Pulse Ox 94 10/05/23 14:11 Oxygen Delivery Method Room Air 10/05/23 14:11 BMI result Body Mass Index 34.4 General: awake, alert, oriented. Answers questions appropriately. Fully engaged in examination. Skin: warm, dry, intact without visible rashes or lesions. HEENT: Normocephalic. Hearing intact. Cardiac: External chest normal in appearance. Respiratory: No cough, audible wheezing or stridor. Abdomen: without gross distension. MS: Able to transition from sit to stand unassisted. Ambulates with bilaterally normal heel strike and toe off Neurological: Oriented to person, place, time and situation. Thought process intact. Psychiatric: Appropriate mood and affect. Good judgment and insight. Const Other: Assessment & Plan Assessment & Plan (1) Spondylosis of cervical spine with radiculopathy: Code(s): M47.22 - Other spondylosis with radiculopathy, cervical region (2) Myofascial pain: Code(s): M79.18 - Myalgia, other site (3) Osteoarthritis of knees, bilateral: Code(s): M17.0 - Bilateral primary osteoarthritis of knee (4) Osteoarthritis of right shoulder: Code(s): M19.011 - Primary osteoarthritis, right shoulder (5) Arthritis of left hip: Code(s): M16.12 - Unilateral primary osteoarthritis, left hip Corazon Barraza presented back to the office today for follow up chronic pain and chronic opioid management. Masspat was reviewed and without concerns. No obvious signs of diversion, abuse or misuse of the opioid medications. Will send in prescription for oxycodone 10mg po tid prn with an advanced date of 10/21/2023. Patient to follow-up in the office in 1 month, sooner if needed. All questions and concerns have been answered and patient agrees with the plan. Note: He was suspended from the opioid program previously because he was 20 pills short. His risk was mild and he was suspended for 6 month. If there is a second violation his suspension will be for a full year. Medications: Refilled oxycodone Partial Fill upon patient request. 10 mg PO TID PRN 90 tabs 0RF pain 30 days M17.0 - Bilateral primary osteoarthritis of knee, M19.011 - Primary osteoarthritis, right shoulder, M48.02 - Spinal stenosis, cervical region, M79.18 - Myalgia, other site Coding Level of Care Code Est Pt Level 4 (41068) Diagnoses Spondylosis of cervical spine with radiculopathy M47.22 Myofascial pain M79.18 Osteoarthritis of knees, bilateral M17.0 Osteoarthritis of right shoulder M19.011 Arthritis of left hip M16.12
== END 2023-10-05 14:22 | disposition home or self-care (01) ==
PROVIDERS: PCP Internal Medicine; Visit Provider Registered Nurse Emergency
DX: M47.22 Other spondylosis with radiculopathy, cervical region (principal); M79.18 Myalgia, other site; M17.0 Bilateral primary osteoarthritis of knee; M19.011 Primary osteoarthritis, right shoulder; M16.12 Unilateral primary osteoarthritis, left hip
CPT/HCPCS: 99214

== ENCOUNTER → 2023-10-05 13:57 | Outpatient (BNVA) | payer MEDICARE, MEDICAID, SELFPAY | PROVIDERS: PCP Internal Medicine; Visit Provider Registered Nurse Emergency | DX: Z51.81 Encounter for therapeutic drug level monitoring (principal); F11.20 Opioid dependence, uncomplicated; M47.22 Other spondylosis with radiculopathy, cervical region; M79.18 Myalgia, other site; M17.0 Bilateral primary osteoarthritis of knee; M19.011 Primary osteoarthritis, right shoulder; M16.12 Unilateral primary osteoarthritis, left hip | CPT/HCPCS: 99212 ==

== ENCOUNTER 2023-11-04 13:57 | Outpatient (AMB) | payer MEDICARE, MEDICAID, SELFPAY ==
[2023-11-04 14:07] VITALS: BP 142/75; PULSE 90; RESP 20; O2SAT 94; BMI 34.8
--- NOTE | 2023-11-04 14:07 | A.OFFVIS_ITS ---
Intake Vital Signs 11/04/23 14:07 Height 5 ft 10 in Weight 242 lb 4 oz BMI 34.8 BP 142/75 H Blood Pressure Location Lt brachial Position Sitting Respiration 20 Pulse 90 Pulse Source Pulse Oximeter Pulse Oximetry (%) 94 Oxygen Delivery Method Room Air Intake Visit Reasons: Medication Count /no vm set Allergies No Known Allergies Allergy (Verified 11/04/23 14:06) HPI HPI Comments History of Present Illness Details Madi is a very pleasant 68 year old male who presents to the office today for follow up chronic pain and chronic opioid management. Patient is prescribed oxycodone 10mg po tid prn. Patient arrived today with the expectation of having 45 pills, he presented 48 pills which were counted in the presence of two staff members and returned to the patient in the original prescription bottle. This demonstrates responsible attitude toward patient's opioid medications. Pain is reported today as 7/10 and last dose of pain medication was taken at 11:00 this morning. Patient denies any recent changes or exacerbations of chronic back pain and states sleep, mobility and overall level of functioning improved with use of his opioid medication. Patient denies side effects including somnolence, constipation, urinary retention, itching, dyspnea, rash, dizziness or weakness. Prior visit with Dr Turner: h/o neck pain low back pain as well as right shoulder and bilateral knee pain, which have been present for many years.?the neck pain starts midline and radiates to bilateral shoulders, with associated numbness down the entire left arm and moderate pain from the shoulder to the elbow.? He denies any significant weakness of bilateral upper extremities.? In the past he was under the care of Dr. Diaz and managed with morphine 30 mg twice a day as well as multiple injections and RFA for the lumbar spine.? Most recently, he has been seen at [facility].? They have treated him with injections, the last being a few months ago with a left-sided neck injection.? He reports significant pain relief for the 1st month and then slowly his pain returns by the end of the 2nd month.? He reports seeing a neurosurgeon in the past and was told he was not a surgical candidate. He also reports trialing buprenorphine in the past with Dr. Diaz, which he states had negative effect on his motor function.? He has tried and failed physical therapy multiple times.? In the past he had good relief with chiropractic manipulation but has not done this for many year.? For quite some time he was in our office on chronic opioid program,?He was suspended in our office from opioid program because he had a pill count which was 20 pills short.? He was suspended for 6 months because he was low risk for opioid addiction.? If he will be found to have in discrepancies with his pill count again his suspension now will before the full year. Review of Systems Const All systems reviewed & are unremarkable except as noted in HPI and below Physical Exam Vital Signs: Last Vital Signs Pulse 90 11/04/23 14:07 Resp 20 11/04/23 14:07 BP 142/75 H 11/04/23 14:07 Pulse Ox 94 11/04/23 14:07 Oxygen Delivery Method Room Air 11/04/23 14:07 BMI result Body Mass Index 34.8 General: awake, alert, oriented. Answers questions appropriately. Fully engaged in examination. Skin: warm, dry, intact without visible rashes or lesions. HEENT: Normocephalic. Hearing intact. Cardiac: External chest normal in appearance. Respiratory: No cough, audible wheezing or stridor. Abdomen: without gross distension. MS: Able to transition from sit to stand unassisted. Ambulates with bilaterally normal heel strike and toe off Neurological: Oriented to person, place, time and situation. Thought process intact. Psychiatric: Appropriate mood and affect. Good judgment and insight. Const Other: Assessment & Plan Assessment & Plan (1) Spondylosis of cervical spine with radiculopathy: Code(s): M47.22 - Other spondylosis with radiculopathy, cervical region (2) Myofascial pain: Code(s): M79.18 - Myalgia, other site (3) Osteoarthritis of knees, bilateral: Code(s): M17.0 - Bilateral primary osteoarthritis of knee (4) Osteoarthritis of right shoulder: Code(s): M19.011 - Primary osteoarthritis, right shoulder (5) Arthritis of left hip: Code(s): M16.12 - Unilateral primary osteoarthritis, left hip Corazon Madi presented back to the office today for follow up chronic pain and chronic opioid management. Masspat was reviewed and without concerns. No obvious signs of diversion, abuse or misuse of the opioid medications. Will send in prescription for oxycodone 10mg po tid prn with an advanced date of 11/20/23. Patient to follow-up in the office in 1 month, sooner if needed. All questions and concerns have been answered and patient agrees with the plan. Note: He was suspended from the opioid program previously because he was 20 pills short. His risk was mild and he was suspended for 6 month. If there is a second violation his suspension will be for a full year. Medications: Refilled oxycodone Partial Fill upon patient request. 10 mg PO TID PRN 90 tabs 0RF pain 30 days M17.0 - Bilateral primary osteoarthritis of knee, M19.011 - Primary osteoarthritis, right shoulder, M48.02 - Spinal stenosis, cervical region, M79.18 - Myalgia, other site Coding Level of Care Code Est Pt Level 4 (09905) Diagnoses Spondylosis of cervical spine with radiculopathy M47.22 Myofascial pain M79.18 Osteoarthritis of knees, bilateral M17.0 Osteoarthritis of right shoulder M19.011 Arthritis of left hip M16.12
== END 2023-11-04 14:16 | disposition home or self-care (01) ==
PROVIDERS: PCP Internal Medicine; Visit Provider Registered Nurse Emergency
DX: M47.22 Other spondylosis with radiculopathy, cervical region (principal); M79.18 Myalgia, other site; M17.0 Bilateral primary osteoarthritis of knee; Z79.891 Long term (current) use of opiate analgesic; M19.011 Primary osteoarthritis, right shoulder; M16.12 Unilateral primary osteoarthritis, left hip
CPT/HCPCS: 99214

== ENCOUNTER → 2023-11-04 13:57 | Outpatient (BNVA) | payer MEDICARE, MEDICAID, SELFPAY | PROVIDERS: PCP Internal Medicine; Visit Provider Registered Nurse Emergency | DX: Z51.81 Encounter for therapeutic drug level monitoring (principal); F11.20 Opioid dependence, uncomplicated; M47.22 Other spondylosis with radiculopathy, cervical region; M79.18 Myalgia, other site; M17.0 Bilateral primary osteoarthritis of knee; M19.011 Primary osteoarthritis, right shoulder; M16.12 Unilateral primary osteoarthritis, left hip | CPT/HCPCS: 99212 ==

== ENCOUNTER 2023-12-02 15:27 | Outpatient (AMB) | payer MEDICARE, MEDICAID, SELFPAY ==
[2023-12-02 15:53] VITALS: BP 156/83; PULSE 99; RESP 96; O2SAT 96; BMI 34.1
--- NOTE | 2023-12-02 15:53 | MHC.OFFVIS ---
Intake Vital Signs 12/02/23 15:53 Height 5 ft 10 in Weight 237 lb 6 oz BMI 34.1 BP 156/83 H Blood Pressure Location Lt brachial Position Sitting Respiration 96 H Pulse 99 Pulse Source Pulse Oximeter Pulse Oximetry (%) 96 Oxygen Delivery Method Room Air Intake Visit Reasons: PILL COUNT - No voicemail set up Allergies No Known Allergies Allergy (Verified 12/02/23 15:52) HPI HPI Comments History of Present Illness Details Madi is a very pleasant 68 year old male who presents to the office today for follow up chronic pain and chronic opioid management. Patient is prescribed oxycodone 10mg po tid prn. Initially patient arrived today with the expectation of having 51 pills, he presented 47 pills which were counted in the presence of two staff members and returned to the patient in the original prescription bottle. This would result in suspension from the program, patient went to his car and had one pill in his daily pill organizer. His recount was 48 pills which is within the allowed discrepancy and therefore he will not be suspended. Pain is reported today as 5/10 and last dose of pain medication was taken at 14:40 today. Patient states sleep, mobility and overall level of functioning improved with use of his opioid medication. Denies side effects including somnolence, constipation, urinary retention, itching, dyspnea, rash, dizziness or weakness. Prior visit with Dr Turner: h/o neck pain low back pain as well as right shoulder and bilateral knee pain, which have been present for many years.?the neck pain starts midline and radiates to bilateral shoulders, with associated numbness down the entire left arm and moderate pain from the shoulder to the elbow.? He denies any significant weakness of bilateral upper extremities.? In the past he was under the care of Dr. Diaz and managed with morphine 30 mg twice a day as well as multiple injections and RFA for the lumbar spine.? Most recently, he has been seen at [facility].? They have treated him with injections, the last being a few months ago with a left-sided neck injection.? He reports significant pain relief for the 1st month and then slowly his pain returns by the end of the 2nd month.? He reports seeing a neurosurgeon in the past and was told he was not a surgical candidate. He also reports trialing buprenorphine in the past with Dr. Diaz, which he states had negative effect on his motor function.? He has tried and failed physical therapy multiple times.? In the past he had good relief with chiropractic manipulation but has not done this for many year.? For quite some time he was in our office on chronic opioid program,?He was suspended in our office from opioid program because he had a pill count which was 20 pills short.? He was suspended for 6 months because he was low risk for opioid addiction.? If he will be found to have in discrepancies with his pill count again his suspension now will before the full year. Review of Systems Const All systems reviewed & are unremarkable except as noted in HPI and below Physical Exam Vital Signs: Last Vital Signs Pulse 99 12/02/23 15:53 Resp 96 H 12/02/23 15:53 BP 156/83 H 12/02/23 15:53 Pulse Ox 96 12/02/23 15:53 Oxygen Delivery Method Room Air 12/02/23 15:53 BMI result Body Mass Index 34.1 General: awake, alert, oriented. Answers questions appropriately. Fully engaged in examination. Skin: warm, dry, intact without visible rashes or lesions. HEENT: Normocephalic. Hearing intact. Cardiac: External chest normal in appearance. Respiratory: No cough, audible wheezing or stridor. Abdomen: without gross distension. MS: Able to transition from sit to stand unassisted. Ambulates with bilaterally normal heel strike and toe off Neurological: Oriented to person, place, time and situation. Thought process intact. Psychiatric: Appropriate mood and affect. Good judgment and insight. Const Other: Assessment & Plan Assessment & Plan (1) Spondylosis of cervical spine with radiculopathy: Code(s): M47.22 - Other spondylosis with radiculopathy, cervical region (2) Myofascial pain: Code(s): M79.18 - Myalgia, other site (3) Osteoarthritis of knees, bilateral: Code(s): M17.0 - Bilateral primary osteoarthritis of knee (4) Osteoarthritis of right shoulder: Code(s): M19.011 - Primary osteoarthritis, right shoulder (5) Arthritis of left hip: Code(s): M16.12 - Unilateral primary osteoarthritis, left hip Corazon Barraza presented back to the office today for follow up chronic pain and chronic opioid management. Initially his pill count was short #4 tabs which would result in suspension from the program. He was able to provide one extra tab that was in a daily pill organizer in his car, therefore his count was within the allowed discrepancy and he was not suspended. Patient was advised at each visit he must ensure all pills are brought to every appt in the original bottle. He verbalized understanding. Masspat was reviewed and without concerns. No obvious signs of diversion, abuse or misuse of the opioid medications. Will send in prescription for oxycodone 10mg po tid prn with an advanced date of 12/20/23. Patient to follow-up in the office in 1 month, sooner if needed. All questions and concerns have been answered and patient agrees with the plan. Note: He was suspended from the opioid program previously because he was 20 pills short. His risk was mild and he was suspended for 6 month. If there is a second violation his suspension will be for a full year. Medications: Refilled oxycodone Partial Fill upon patient request. 10 mg PO TID 30 days PRN 90 tabs 0RF pain M17.0 - Bilateral primary osteoarthritis of knee, M19.011 - Primary osteoarthritis, right shoulder, M48.02 - Spinal stenosis, cervical region, M79.18 - Myalgia, other site Coding Level of Care Code Est Pt Level 4 (21499) Diagnoses Spondylosis of cervical spine with radiculopathy M47.22 Myofascial pain M79.18 Osteoarthritis of knees, bilateral M17.0 Osteoarthritis of right shoulder M19.011 Arthritis of left hip M16.12
== END 2023-12-02 16:29 | disposition home or self-care (01) ==
PROVIDERS: PCP Internal Medicine; Visit Provider Registered Nurse Emergency
DX: M47.22 Other spondylosis with radiculopathy, cervical region (principal); M79.18 Myalgia, other site; M17.0 Bilateral primary osteoarthritis of knee; M19.011 Primary osteoarthritis, right shoulder; M16.12 Unilateral primary osteoarthritis, left hip
CPT/HCPCS: 99214

== ENCOUNTER → 2023-12-02 15:27 | Outpatient (BNVA) | payer MEDICARE, MEDICAID, SELFPAY | PROVIDERS: PCP Internal Medicine; Visit Provider Registered Nurse Emergency | DX: Z51.81 Encounter for therapeutic drug level monitoring (principal); F11.20 Opioid dependence, uncomplicated; M47.22 Other spondylosis with radiculopathy, cervical region; M79.18 Myalgia, other site; M17.0 Bilateral primary osteoarthritis of knee; M19.011 Primary osteoarthritis, right shoulder; M16.12 Unilateral primary osteoarthritis, left hip | CPT/HCPCS: 99212 ==

== ENCOUNTER 2024-01-06 13:17 | Outpatient (AMB) | payer MEDICARE, MEDICAID, SELFPAY ==
--- NOTE | 2024-01-06 13:47 | A.OFFVIS_ITS ---
Intake Vital Signs 01/06/24 14:08 Height 5 ft 10 in Weight 254 lb BMI 36.4 BP 137/83 Blood Pressure Location Rt brachial Position Sitting Pulse 92 Pulse Source Pulse Oximeter Pulse Oximetry (%) 96 Oxygen Delivery Method Room Air Intake Visit Reasons: Pill Count Intake Note: Madi comes in today for a pill count to oxycodone, patient should have 42 t ablets and presents with 46 tablets which he last took today 01/06/24 at 11am. Patient had slow responses when asked questions along with small pupils. Pain today 05/03 Development Coordinator Required: No Accompanied by: Self / Same As Patient Allergies No Known Allergies Allergy (Verified 01/06/24 14:09) HPI HPI Comments History of Present Illness Details Madi is a very pleasant 68 year old male who presents to the office today for follow up chronic pain and chronic opioid management. Patient is prescribed oxycodone 10mg po tid prn. He arrived today with the expectation of having 42 pills, he presented 46 pills which were counted in the presence of two staff members and returned to the patient in the original prescription bottle. Pain is reported today as 510 and last dose of pain medication was taken at 11am today. Patient states sleep, mobility and overall level of functioning improved with use of his opioid medication. Denies side effects including somnolence, constipation, urinary retention, itching, dyspnea, rash, dizziness or weakness. Patient had increase in his thryoid meds 2 days ago. Reports he has been tired, did not sleep well last night. States he never sleeps well the night before a doctors appointment for fear he will over sleep and miss the visit. Endorses THC use, obtains from dispensary. Occassionally drinks beer. Denies ETOH, THC or other illicit substance use today. Prior visit with Dr Turner: h/o neck pain low back pain as well as right shoulder and bilateral knee pain, which have been present for many years.?the neck pain starts midline and radiates to bilateral shoulders, with associated numbness down the entire left arm and moderate pain from the shoulder to the elbow.? He denies any significant weakness of bilateral upper extremities.? In the past he was under the care of Dr. Diaz and managed with morphine 30 mg twice a day as well as multiple injections and RFA for the lumbar spine.? Most recently, he has been seen at [facility].? They have treated him with injections, the last being a few months ago with a left-sided neck injection.? He reports significant pain relief for the 1st month and then slowly his pain returns by the end of the 2nd month.? He reports seeing a neurosurgeon in the past and was told he was not a surgical candidate. He also reports trialing buprenorphine in the past with Dr. Diaz, which he states had negative effect on his motor function.? He has tried and failed physical therapy multiple times.? In the past he had good relief with chiropractic manipulation but has not done this for many year.? For quite some time he was in our office on chronic opioid program,?He was suspended in our office from opioid program because he had a pill count which was 20 pills short.? He was suspended for 6 months because he was low risk for opioid addiction.? If he will be found to have in discrepancies with his pill count again his suspension now will before the full year. Review of Systems Const All systems reviewed & are unremarkable except as noted in HPI and below Physical Exam Vital Signs: Last Vital Signs Pulse 92 01/06/24 14:08 BP 137/83 01/06/24 14:08 Pulse Ox 96 01/06/24 14:08 Oxygen Delivery Method Room Air 01/06/24 14:08 BMI result Body Mass Index 36.4 General: awake, oriented. Answers questions appropriately. Appears tired. Speech clear. Skin: warm, dry, intact HEENT: Normocephalic. Hearing intact. Cardiac: External chest normal in appearance. Respiratory: No cough, audible wheezing or stridor. Abdomen: without gross distension. MS: Able to transition from sit to stand unassisted. Ambulates with bilaterally normal heel strike and toe off Neurological: Oriented to person, place, time and situation. Thought process intact. Psychiatric: Appropriate mood and affect. Good judgment and insight. Const Other: Assessment & Plan Assessment & Plan (1) Spondylosis of cervical spine with radiculopathy: Code(s): M47.22 - Other spondylosis with radiculopathy, cervical region (2) Myofascial pain: Code(s): M79.18 - Myalgia, other site (3) Osteoarthritis of knees, bilateral: Code(s): M17.0 - Bilateral primary osteoarthritis of knee (4) Osteoarthritis of right shoulder: Code(s): M19.011 - Primary osteoarthritis, right shoulder (5) Arthritis of left hip: Code(s): M16.12 - Unilateral primary osteoarthritis, left hip Plan Patient presented back to the office today for follow up chronic pain and ch ronic opioid management. Masspat was reviewed and without concerns. No obvious signs of diversion, abuse or misuse of the opioid medications. Will send in prescription for oxycodone 10mg po tid prn with an advanced date of 01/21/24. Patient was advised on cautions for use of his medications, including no etoh or other KICK [employer]ESS [employer]PERATOR depressant use while taking his prescribed opioid medications. Patient to follow-up in the office in 1 month, sooner if needed. All questions and concerns have been answered and patient agrees with the plan. Note: He was suspended from the opioid program previously because he was 20 pills short. His risk was mild and he was suspended for 6 month. If there is a second violation his suspension will be for a full year. Medications: Refilled oxycodone Partial Fill upon patient request. 10 mg PO TID 30 days PRN 90 tabs 0RF pain M17.0 - Bilateral primary osteoarthritis of knee, M19.011 - Primary osteoarthritis, right shoulder, M48.02 - Spinal stenosis, cervical region, M79.18 - Myalgia, other site Coding Level of Care Code Est Pt Level 4 (37455) Diagnoses Spondylosis of cervical spine with radiculopathy M47.22 Myofascial pain M79.18 Osteoarthritis of knees, bilateral M17.0 Osteoarthritis of right shoulder M19.011 Arthritis of left hip M16.12
[2024-01-06 14:08] VITALS: BP 137/83; PULSE 92; O2SAT 96; BMI 36.4
== END 2024-01-06 14:31 | disposition home or self-care (01) ==
PROVIDERS: PCP Internal Medicine; Visit Provider Registered Nurse Emergency
DX: M47.22 Other spondylosis with radiculopathy, cervical region (principal); M79.18 Myalgia, other site; M17.0 Bilateral primary osteoarthritis of knee; M19.011 Primary osteoarthritis, right shoulder; M16.12 Unilateral primary osteoarthritis, left hip
CPT/HCPCS: 99214

== ENCOUNTER → 2024-01-06 13:17 | Outpatient (BNVA) | payer MEDICARE, MEDICAID, SELFPAY | PROVIDERS: PCP Internal Medicine; Visit Provider Registered Nurse Emergency | DX: M47.22 Other spondylosis with radiculopathy, cervical region (principal); M79.18 Myalgia, other site; M17.0 Bilateral primary osteoarthritis of knee; M19.011 Primary osteoarthritis, right shoulder; M16.12 Unilateral primary osteoarthritis, left hip; Z79.891 Long term (current) use of opiate analgesic | CPT/HCPCS: 99212 ==

== ENCOUNTER 2024-02-03 13:51 | Outpatient (AMB) | payer MEDICARE, MEDICAID, SELFPAY ==
--- NOTE | 2024-02-03 14:22 | A.OFFVIS_ITS ---
Intake Intake Visit Reasons: PILL COUNT/ random UDS Allergies No Known Allergies Allergy (Verified 01/06/24 14:09) HPI HPI Comments History of Present Illness Details Madi is a very pleasant 68 year old male who presents to the office today for follow up chronic pain and chronic opioid management. Patient is prescribed oxycodone 10mg po tid prn. He arrived today with the expectation of having 51 pills, he presented 54 pills which were counted in the presence of two staff members and returned to the patient in the original prescription bottle. Pain is reported today as 7/10 and last dose of pain medication was taken at 11am today. Patient states sleep, mobility and overall level of functioning improved with use of his opioid medication. Denies side effects including somnolence, constipation, urinary retention, itching, dyspnea, rash, dizziness or weakness. THC use, obtains from dispensary. Occassionally drinks beer. Denies ETOH, THC or other illicit substance use today. Patient complains that pain in left hip is returning, he would like to repeat the steroid injection. Last performed 06/2023. Prior visit with Dr Turner: h/o neck pain low back pain as well as right shoulder and bilateral knee pain, which have been present for many years.?the neck pain starts midline and radiates to bilateral shoulders, with associated numbness down the entire left arm and moderate pain from the shoulder to the elbow.? He denies any significant weakness of bilateral upper extremities.? In the past he was under the care of Dr. Diaz and managed with morphine 30 mg twice a day as well as multiple injections and RFA for the lumbar spine.? Most recently, he has been seen at [facility].? They have treated him with injections, the last being a few months ago with a left-sided neck injection.? He reports significant pain relief for the 1st month and then slowly his pain returns by the end of the 2nd month.? He reports seeing a neurosurgeon in the past and was told he was not a surgical candidate. He also reports trialing buprenorphine in the past with Dr. Diaz, which he states had negative effect on his motor function.? He has tried and failed physical therapy multiple times.? In the past he had good relief with chiropractic manipulation but has not done this for many year.? For quite some time he was in our office on chronic opioid program,?He was suspended in our office from opioid program because he had a pill count which was 20 pills short.? He was suspended for 6 months because he was low risk for opioid addiction.? If he will be found to have in discrepancies with his pill count again his suspension now will before the full year. Review of Systems Const All systems reviewed & are unremarkable except as noted in HPI and below Physical Exam General: awake, oriented. Answers questions appropriately. Appears tired. Speech clear. Skin: warm, dry, intact HEENT: Normocephalic. Hearing intact. Cardiac: External chest normal in appearance. Respiratory: No cough, audible wheezing or stridor. Abdomen: without gross distension. MS: Able to transition from sit to stand unassisted. Ambulates with bilaterally normal heel strike and toe off Pain with internal/external rotation of the left hip Neurological: Oriented to person, place, time and situation. Thought process intact. Psychiatric: Appropriate mood and affect. Good judgment and insight. Const Other: Assessment & Plan Assessment & Plan (1) Spondylosis of cervical spine with radiculopathy: Code(s): M47.22 - Other spondylosis with radiculopathy, cervical region (2) Myofascial pain: Code(s): M79.18 - Myalgia, other site (3) Osteoarthritis of knees, bilateral: Code(s): M17.0 - Bilateral primary osteoarthritis of knee (4) Osteoarthritis of right shoulder: Code(s): M19.011 - Primary osteoarthritis, right shoulder (5) Arthritis of left hip: Code(s): M16.12 - Unilateral primary osteoarthritis, left hip Plan Patient presented back to the office today for follow up chronic pain and chronic opioid management. Masspat was reviewed and without concerns. No obvious signs of diversion, abuse or misuse of the opioid medications. Will send in prescription for oxycodone 10mg po tid prn with an advanced date of 02/21/24. Random UDS collected today Will repeat fluoroscopy guided left intra-articular hip steroid injection with local anesthetic. Patient to follow-up in the office in 1 month/after injection, sooner if needed. All questions and concerns have been answered and patient agrees with the plan. Note: He was suspended from the opioid program previously because he was 20 pills short. His risk was mild and he was suspended for 6 month. If there is a second violation his suspension will be for a full year. Medications: Refilled oxycodone Partial Fill upon patient request. 10 mg PO TID 30 days PRN 90 tabs 0RF pain M17.0 - Bilateral primary osteoarthritis of knee, M19.011 - Primary osteoarthritis, right shoulder, M48.02 - Spinal stenosis, cervical region, M79.18 - Myalgia, other site Coding Level of Care Code Est Pt Level 4 (33943) Diagnoses Spondylosis of cervical spine with radiculopathy M47.22 Myofascial pain M79.18 Osteoarthritis of knees, bilateral M17.0 Osteoarthritis of right shoulder M19.011 Arthritis of left hip M16.12
[2024-02-03 14:44] VITALS: BP 134/74; PULSE 78; RESP 16; O2SAT 94
--- NOTE | 2024-02-03 14:44 | A.OFFVIS_ITS ---
Intake Vital Signs 02/03/24 14:44 Height 5 ft 10 in BP 134/74 Blood Pressure Location Lt brachial Position Sitting Respiration 16 Pulse 78 Pulse Source Pulse Oximeter Pulse Oximetry (%) 94 Oxygen Delivery Method Room Air Intake Visit Reasons: PILL COUNT/ random UDS Allergies No Known Allergies Allergy (Verified 01/06/24 14:09) Assessment & Plan Assessment & Plan (1) Spondylosis of cervical spine with radiculopathy: Code(s): M47.22 - Other spondylosis with radiculopathy, cervical region (2) Myofascial pain: Code(s): M79.18 - Myalgia, other site (3) Osteoarthritis of knees, bilateral: Code(s): M17.0 - Bilateral primary osteoarthritis of knee (4) Osteoarthritis of right shoulder: Code(s): M19.011 - Primary osteoarthritis, right shoulder (5) Arthritis of left hip: Code(s): M16.12 - Unilateral primary osteoarthritis, left hip Medications: Refilled oxycodone Partial Fill upon patient request. 10 mg PO TID PRN 90 tabs 0RF pain 30 days M17.0 - Bilateral primary osteoarthritis of knee, M19.011 - Primary osteoart hritis, right shoulder, M48.02 - Spinal stenosis, cervical region, M79.18 - Myalgia, other site Coding Diagnoses Spondylosis of cervical spine with radiculopathy M47.22 Myofascial pain M79.18 Osteoarthritis of knees, bilateral M17.0 Osteoarthritis of right shoulder M19.011 Arthritis of left hip M16.12
== END 2024-02-03 14:40 | disposition home or self-care (01) ==
PROVIDERS: PCP Internal Medicine; Visit Provider Registered Nurse Emergency
DX: M47.22 Other spondylosis with radiculopathy, cervical region (principal); M79.18 Myalgia, other site; M17.0 Bilateral primary osteoarthritis of knee; M19.011 Primary osteoarthritis, right shoulder; M16.12 Unilateral primary osteoarthritis, left hip
CPT/HCPCS: 99214

== ENCOUNTER → 2024-02-03 13:51 | Outpatient (BNVA) | payer MEDICARE, MEDICAID, SELFPAY | PROVIDERS: PCP Internal Medicine; Visit Provider Registered Nurse Emergency | DX: Z51.81 Encounter for therapeutic drug level monitoring (principal); M47.22 Other spondylosis with radiculopathy, cervical region; M79.18 Myalgia, other site; M17.0 Bilateral primary osteoarthritis of knee; M19.011 Primary osteoarthritis, right shoulder; M16.12 Unilateral primary osteoarthritis, left hip | CPT/HCPCS: 99212 ==

== ENCOUNTER 2024-02-22 06:21 | Outpatient (REF) | payer MEDICARE, MEDICAID, SELFPAY ==
--- NOTE | ~2024-02-22 | FL_ITS ---
EXAMINATION: XR FLUOROSCOPY WITH IMAGES CLINICAL INFORMATION: Left hip injection. COMPARISON: None available. TECHNIQUE: Fluoroscopy Supervised By: Dr. Emerson Turner. Fluoroscopy Time: 0.3 MIN. Cumulative Dose: 9.55 mGy. DAP: 2.60 Gycm2. Images: 2. FINDINGS: Intraoperative fluoroscopy and spot films were performed during a procedure in the OR. 2 images demonstrate a needle overlying what is labeled the left hip joint with some contrast in the joint. Please see Dr. Emerson Turner's report for complete details. FL/FL guidance in treatment room IMPRESSION: Intraoperative fluoroscopy and spot films were obtained. Please see Dr. Emerson Turner's report for complete details.
== END 2024-02-22 06:22 | disposition home or self-care (01) ==
LOC: CF 06:21
PROVIDERS: Visit Provider Anesthesiology
DX: M16.12 Unilateral primary osteoarthritis, left hip (principal); M47.22 Other spondylosis with radiculopathy, cervical region; M79.18 Myalgia, other site; M19.011 Primary osteoarthritis, right shoulder; M17.0 Bilateral primary osteoarthritis of knee
CPT/HCPCS: 20610; J2795; J3301; Q9967

== ENCOUNTER 2024-02-22 14:48 | Outpatient (AMB) | payer MEDICARE, MEDICAID, SELFPAY ==
--- NOTE | 2024-02-22 14:58 | MHC.OFFVIS ---
Vital Signs 02/22/24 15:35 02/22/24 15:39 Height 5 ft 10 in Weight 254 lb BMI 36.4 BP 116/62 124/72 Blood Pressure Location Lt brachial Lt brachial Position Sitting Sitting Respiration 18 16 Pulse 95 90 Pulse Source Pulse Oximeter Pulse Oximeter Pulse Oximetry (%) 95 97 Oxygen Delivery Method Room Air Room Air Comment Pre-op Post-Op Intake Visit Reasons: LEFT INTRA-ARTICULAR HIP INJECTION Allergies No Known Allergies Allergy (Verified 01/06/24 14:09) Physical Exam Vital Signs: Last Vital Signs Pulse 90 02/22/24 15:39 Resp 16 02/22/24 15:39 BP 124/72 02/22/24 15:39 Pulse Ox 97 02/22/24 15:39 Oxygen Delivery Method Room Air 02/22/24 15:39 BMI result Body Mass Index 36.4 Assessment & Plan Assessment & Plan (1) Spondylosis of cervical spine with radiculopathy: Code(s): M47.22 - Other spondylosis with radiculopathy, cervical region Category: Medical (2) Myofascial pain: Code(s): M79.18 - Myalgia, other site Category: Medical (3) Osteoarthritis of knees, bilateral: Code(s): M17.0 - Bilateral primary osteoarthritis of knee Category: Medical (4) Osteoarthritis of right shoulder: Code(s): M19.011 - Primary osteoarthritis, right shoulder Category: Medical (5) Arthritis of left hip: Code(s): M16.12 - Unilateral primary osteoarthritis, left hip Category: Medical Plan: Left hip steroid injection. Informed consent was explained to the patient. All questions were explained and answered. The patient was taken inside of the operating room where she was positioned right lateral decubitus on operating table.. Time-out was performed delineating patient's name and date of , correct site, side, the nature of the procedure, patient's allergy, preoperative antibiotic if needed, need for VT prophylaxis.. All operating room staff was participating in OR time-out procedure. Left hip area of the patient was prepped with ChloraPrep and draped with sterile towels. C-arm was brought over the operating field and picture of left and right lateral views of the bilateral hip joints were delineated on the screen. The smaller joint silhouette was chosen as the target. Projection of the left trochanter to the skin was chosen as the initial needle insertion point. After that the skin and subcutaneous tissues was anesthetized with 2% lidocaine 2.5 mL. 22 gauge 5 in long needle was inserted through the skin and started to advance to the joint space under intermittent lateral and anterior posterior views. When needle entered the capsule of the joint small amount of the contrast was injected delineating intra-articular space. After that treatment solution containing 3 cc of lidocaine 2%, 2 cc of bupivacaine 0.5% and 40 mg of Kenalog was injected into the joint. The needle was withdrawn sterile dressing was applied.The patient tolerated procedure well Plan as Orders: Orders FL guidance in treatment room 02/22/24 M16.12 - Unilateral primary osteoarthritis, left hip Coding Level of Care Code Procedure Only Diagnoses Spondylosis of cervical spine with radiculopathy M47.22 Myofascial pain M79.18 Osteoarthritis of knees, bilateral M17.0 Osteoarthritis of right shoulder M19.011 Arthritis of left hip M16.12
[2024-02-22 15:35] VITALS: BP 116/62; PULSE 95; RESP 18; O2SAT 95; BMI 36.4
[2024-02-22 15:39] VITALS: BP 124/72; PULSE 90; RESP 16; O2SAT 97
== END 2024-02-22 15:34 | disposition home or self-care (01) ==
LOC: HO.PMCPRC 14:48
PROVIDERS: PCP Internal Medicine; Visit Provider Anesthesiology
DX: M16.12 Unilateral primary osteoarthritis, left hip (principal)
CPT/HCPCS: 20610; 77002

== ENCOUNTER 2024-03-02 13:53 | Outpatient (AMB) | payer MEDICARE, MEDICAID, SELFPAY ==
--- NOTE | 2024-03-02 13:56 | MHC.OFFVIS ---
Vital Signs 03/02/24 14:05 Height 5 ft 10 in Weight 230 lb 4 oz BMI 33.0 BP 136/90 H Blood Pressure Location Rt brachial Position Sitting Pulse 120 H Pulse Source Pulse Oximeter Pulse Oximetry (%) 96 Oxygen Delivery Method Room Air Intake Visit Reasons: PILL COUNT Intake Note: Madi come in today for a pill count to oxycodone, patient should have 60 tablets and presents with 67 tablets which he last took today 03/02/24 at 12pm. Pain today 04/03 Account Maintenance Representative Required: No Accompanied by: Self / Same As Patient Allergies No Known Allergies Allergy (Verified 03/02/24 14:08) HPI Comments Details: Madi is a very pleasant 68 year old male who presents to the office today for follow up chronic pain and chronic opioid management. Patient is prescribed oxycodone 10mg po tid prn. He arrived today with the expectation of having 60 pills, he presented 67 pills which were counted in the presence of two staff members and returned to the patient in the original prescription bottle. Pain is reported today as 04/03 and last dose of pain medication was taken at noon. Patient states sleep, mobility and overall level of functioning improved with use of his opioid medication. Denies side effects including somnolence, constipation, urinary retention, itching, dyspnea, rash, dizziness or weakness. THC use, obtains from dispensary. Occassionally drinks beer. Denies ETOH, THC or other illicit substance use today. Patient had AP steroid injection to the left hip 1 week ago. He reports 80% improvement in pain, function and mobility in the hip. Prior visit with Dr Turner: h/o neck pain low back pain as well as right shoulder and bilateral knee pain, which have been present for many years.?the neck pain starts midline and radiates to bilateral shoulders, with associated numbness down the entire left arm and moderate pain from the shoulder to the elbow.? He denies any significant weakness of bilateral upper extremities.? In the past he was under the care of Dr. Diaz and managed with morphine 30 mg twice a day as well as multiple injections and RFA for the lumbar spine.? Most recently, he has been seen at [facility].? They have treated him with injections, the last being a few months ago with a left-sided neck injection.? He reports significant pain relief for the 1st month and then slowly his pain returns by the end of the 2nd month.? He reports seeing a neurosurgeon in the past and was told he was not a surgical candidate. He also reports trialing buprenorphine in the past with Dr. Diaz, which he states had negative effect on his motor function.? He has tried and failed physical therapy multiple times.? In the past he had good relief with chiropractic manipulation but has not done this for many year.? For quite some time he was in our office on chronic opioid program,?He was suspended in our office from opioid program because he had a pill count which was 20 pills short.? He was suspended for 6 months because he was low risk for opioid addiction.? If he will be found to have in discrepancies with his pill count again his suspension now will before the full year. Review of Systems Const All systems reviewed & are unremarkable except as noted in HPI and below Physical Exam General: awake, oriented. Answers questions appropriately. Appears tired. Speech clear. Skin: warm, dry, intact HEENT: Normocephalic. Hearing intact. Cardiac: External chest normal in appearance. Respiratory: No cough, audible wheezing or stridor. Abdomen: without gross distension. MS: Able to transition from sit to stand unassisted. Ambulates with bilaterally normal heel strike and toe off Neurological: Oriented to person, place, time and situation. Thought process intact. Psychiatric: Appropriate mood and affect. Good judgment and insight. Const Other: Assessment & Plan Assessment & Plan (1) Spondylosis of cervical spine with radiculopathy: Code(s): M47.22 - Other spondylosis with radiculopathy, cervical region Category: Medical (2) Myofascial pain: Code(s): M79.18 - Myalgia, other site Category: Medical (3) Osteoarthritis of knees, bilateral: Code(s): M17.0 - Bilateral primary osteoarthritis of knee Category: Medical (4) Osteoarthritis of right shoulder: Code(s): M19.011 - Primary osteoarthritis, right shoulder Category: Medical (5) Arthritis of left hip: Code(s): M16.12 - Unilateral primary osteoarthritis, left hip Category: Medical Plan Patient presented back to the office today for follow up chronic pain and chronic opioid management. Masspat was reviewed and without concerns. No obvious signs of diversion, abuse or misuse of the opioid medications. Will send in prescription for oxycodone 10mg po tid prn with an advanced date of 03/22/24. Patient to follow-up in the office in 1 month, sooner if needed. All questions and concerns have been answered and patient agrees with the plan. Note: He was suspended from the opioid program previously because he was 20 pills short. His risk was mild and he was suspended for 6 month. If there is a second violation his suspension will be for a full year. Medications: Refilled oxycodone Partial Fill upon patient request. 10 mg PO TID 30 days PRN 90 tabs 0RF pain M17.0 - Bilateral primary osteoarthritis of knee, M19.011 - Primary osteoarthritis, right shoulder, M48.02 - Spinal stenosis, cervical region, M79.18 - Myalgia, other site oxycodone Partial Fill upon patient request. 10 mg PO TID 30 days PRN 90 tabs 0RF pain M17.0 - Bilateral primary osteoarthritis of knee, M19.011 - Primary osteoarthritis, right shoulder, M48.02 - Spinal stenosis, cervical region, M79.18 - Myalgia, other site Coding Level of Care Code Est Pt Level 4 (25839) Diagnoses Spondylosis of cervical spine with radiculopathy M47.22 Myofascial pain M79.18 Osteoarthritis of knees, bilateral M17.0 Osteoarthritis of right shoulder M19.011 Arthritis of left hip M16.12
[2024-03-02 14:05] VITALS: BP 136/90; PULSE 120; O2SAT 96; BMI 33.0
== END 2024-03-02 14:11 | disposition home or self-care (01) ==
PROVIDERS: PCP Internal Medicine; Visit Provider Registered Nurse Emergency
DX: M47.22 Other spondylosis with radiculopathy, cervical region (principal); M79.18 Myalgia, other site; M17.0 Bilateral primary osteoarthritis of knee; M19.011 Primary osteoarthritis, right shoulder; M16.12 Unilateral primary osteoarthritis, left hip
CPT/HCPCS: 99214

== ENCOUNTER → 2024-03-02 13:54 | Outpatient (BNVA) | payer MEDICARE, MEDICAID, SELFPAY | PROVIDERS: PCP Internal Medicine; Visit Provider Registered Nurse Emergency | DX: Z51.81 Encounter for therapeutic drug level monitoring (principal); F11.20 Opioid dependence, uncomplicated; M47.22 Other spondylosis with radiculopathy, cervical region; M79.18 Myalgia, other site; M17.0 Bilateral primary osteoarthritis of knee; M19.011 Primary osteoarthritis, right shoulder; M16.12 Unilateral primary osteoarthritis, left hip | CPT/HCPCS: 99212 ==

== ENCOUNTER 2024-03-31 13:26 | Outpatient (AMB) | payer MEDICARE, MEDICAID, SELFPAY ==
--- NOTE | 2024-03-31 13:27 | MHC.OFFVIS ---
Vital Signs 03/31/24 13:33 Height 5 ft 10 in Weight 236 lb BMI 33.9 BP 145/77 H Blood Pressure Location Lt brachial Position Sitting Respiration 16 Pulse 94 Pulse Source Pulse Oximeter Pulse Oximetry (%) 94 Oxygen Delivery Method Room Air Intake Visit Reasons: PILL COUNT Allergies No Known Allergies Allergy (Verified 03/02/24 14:08) HPI Comments Details: Madi is a very pleasant 68 year old male who presents to the office today for follow up chronic pain and chronic opioid management. Patient is prescribed oxycodone 10mg po tid prn. He arrived today with the expectation of having 63 pills, he presented 68 pills which were counted in the presence of two staff members and returned to the patient in the original prescription bottle. Pain is reported today as 5/10 and last dose of pain medication was taken at noon today. Patient states sleep, mobility and overall level of functioning improved with use of his opioid medication. Denies side effects including somnolence, constipation, urinary retention, itching, dyspnea, rash, dizziness or weakness. THC use, obtains from dispensary. Occassionally drinks beer. Prior visit with Dr Turner: h/o neck pain low back pain as well as right shoulder and bilateral knee pain, which have been present for many years.?the neck pain starts midline and radiates to bilateral shoulders, with associated numbness down the entire left arm and moderate pain from the shoulder to the elbow.? He denies any significant weakness of bilateral upper extremities.? In the past he was under the care of Dr. Diaz and managed with morphine 30 mg twice a day as well as multiple injections and RFA for the lumbar spine.? Most recently, he has been seen at [facility].? They have treated him with injections, the last being a few months ago with a left-sided neck injection.? He reports significant pain relief for the 1st month and then slowly his pain returns by the end of the 2nd month.? He reports seeing a neurosurgeon in the past and was told he was not a surgical candidate. He also reports trialing buprenorphine in the past with Dr. Diaz, which he states had negative effect on his motor function.? He has tried and failed physical therapy multiple times.? In the past he had good relief with chiropractic manipulation but has not done this for many year.? For quite some time he was in our office on chronic opioid program,?He was suspended in our office from opioid program because he had a pill count which was 20 pills short.? He was suspended for 6 months because he was low risk for opioid addiction.? If he will be found to have in discrepancies with his pill count again his suspension now will before the full year. Review of Systems Const All systems reviewed & are unremarkable except as noted in HPI and below Physical Exam Vital Signs: Last Vital Signs Pulse 94 03/31/24 13:33 Resp 16 03/31/24 13:33 BP 145/77 H 03/31/24 13:33 Pulse Ox 94 03/31/24 13:33 Oxygen Delivery Method Room Air 03/31/24 13:33 BMI result Body Mass Index 33.9 General: awake, oriented. Answers questions appropriately. Appears tired. Speech clear. Skin: warm, dry, intact HEENT: Normocephalic. Hearing intact. Cardiac: External chest normal in appearance. Respiratory: No cough, audible wheezing or stridor. Abdomen: without gross distension. MS: Able to transition from sit to stand unassisted. Ambulates with bilaterally normal heel strike and toe off Neurological: Oriented to person, place, time and situation. Thought process intact. Psychiatric: Appropriate mood and affect. Good judgment and insight. Const Other: Assessment & Plan Assessment & Plan (1) Spondylosis of cervical spine with radiculopathy: Code(s): M47.22 - Other spondylosis with radiculopathy, cervical region Category: Medical (2) Myofascial pain: Code(s): M79.18 - Myalgia, other site Category: Medical (3) Osteoarthritis of knees, bilateral: Code(s): M17.0 - Bilateral primary osteoarthritis of knee Category: Medical (4) Osteoarthritis of right shoulder: Code(s): M19.011 - Primary osteoarthritis, right shoulder Category: Medical (5) Arthritis of left hip: Code(s): M16.12 - Unilateral primary osteoarthritis, left hip Category: Medical Plan Patient presented back to the office today for follow up chronic pain and chronic opioid management. Masspat was reviewed and without concerns. No obvious signs of diversion, abuse or misuse of the opioid medications. Will send in prescription for oxycodone 10mg po tid prn with an advanced date of 04/22/24. Patient to follow-up in the office in 1 month, sooner if needed. All questions and concerns have been answered and patient agrees with the plan. Note: He was suspended from the opioid program previously because he was 20 pills short. His risk was mild and he was suspended for 6 month. If there is a second violation his suspension will be for a full year. Medications: Refilled oxycodone Partial Fill upon patient request. 10 mg PO TID PRN 90 tabs 0RF pain 30 days M17.0 - Bilateral primary osteoarthritis of knee, M19.011 - Primary osteoarthritis, right shoulder, M48.02 - Spinal stenosis, cervical region, M79.18 - Myalgia, other site Coding Level of Care Code Est Pt Level 4 (19486) Diagnoses Spondylosis of cervical spine with radiculopathy M47.22 Myofascial pain M79.18 Osteoarthritis of knees, bilateral M17.0 Osteoarthritis of right shoulder M19.011 Arthritis of left hip M16.12
[2024-03-31 13:33] VITALS: BP 145/77; PULSE 94; RESP 16; O2SAT 94; BMI 33.9
== END 2024-03-31 13:38 | disposition home or self-care (01) ==
PROVIDERS: PCP Internal Medicine; Visit Provider Registered Nurse Emergency
DX: M47.22 Other spondylosis with radiculopathy, cervical region (principal); M79.18 Myalgia, other site; M17.0 Bilateral primary osteoarthritis of knee; M19.011 Primary osteoarthritis, right shoulder; M16.12 Unilateral primary osteoarthritis, left hip
CPT/HCPCS: 99214

== ENCOUNTER → 2024-03-31 13:26 | Outpatient (BNVA) | payer MEDICARE, MEDICAID, SELFPAY | PROVIDERS: PCP Internal Medicine; Visit Provider Registered Nurse Emergency | DX: Z51.81 Encounter for therapeutic drug level monitoring (principal); F11.20 Opioid dependence, uncomplicated; M47.22 Other spondylosis with radiculopathy, cervical region; M79.18 Myalgia, other site; M17.0 Bilateral primary osteoarthritis of knee; M19.011 Primary osteoarthritis, right shoulder; M16.12 Unilateral primary osteoarthritis, left hip | CPT/HCPCS: 99212 ==

== ENCOUNTER 2024-04-21 13:10 | Outpatient (AMB) | payer MEDICARE, MEDICAID, SELFPAY ==
--- NOTE | 2024-04-21 13:11 | MHC.OFFVIS ---
Vital Signs 04/21/24 13:18 Height 5 ft 10 in Weight 239 lb BMI 34.3 BP 121/92 H Blood Pressure Location Lt brachial Position Sitting Pulse 103 H Pulse Source Pulse Oximeter Pulse Oximetry (%) 97 Oxygen Delivery Method Room Air Intake Visit Reasons: PILL COUNT Intake Note: Madi comes in today for a pill count to oxycodone, patient should have 0 tablets and presents with 7 tablets which he last took today 04/21/24 at 12pm. Pain today 04/03 Manager Residential Required: No Accompanied by: Self / Same As Patient Allergies No Known Allergies Allergy (Verified 04/21/24 13:18) HPI Comments Details: Madi is a very pleasant 69 year old male who presents to the office today for follow up chronic pain and chronic opioid management. Patient is prescribed oxycodone 10mg po tid prn. He arrived today with the expectation of having 0 pills, he presented 7 pills which were counted in the presence of two staff members and returned to the patient in the original prescription bottle. Pain is reported today as 8/10 and last dose of pain medication was taken at noon today. Patient states sleep, mobility and overall level of functioning improved with use of his opioid medication. Denies side effects including somnolence, constipation, urinary retention, itching, dyspnea, rash, dizziness or weakness. THC use, obtains from dispensary. Occassionally drinks beer. Prior visit with Dr Turner: h/o neck pain low back pain as well as right shoulder and bilateral knee pain, which have been present for many years.?the neck pain starts midline and radiates to bilateral shoulders, with associated numbness down the entire left arm and moderate pain from the shoulder to the elbow.? He denies any significant weakness of bilateral upper extremities.? In the past he was under the care of Dr. Diaz and managed with morphine 30 mg twice a day as well as multiple injections and RFA for the lumbar spine.? Most recently, he has been seen at [facility].? They have treated him with injections, the last being a few months ago with a left-sided neck injection.? He reports significant pain relief for the 1st month and then slowly his pain returns by the end of the 2nd month.? He reports seeing a neurosurgeon in the past and was told he was not a surgical candidate. He also reports trialing buprenorphine in the past with Dr. Diaz, which he states had negative effect on his motor function.? He has tried and failed physical therapy multiple times.? In the past he had good relief with chiropractic manipulation but has not done this for many year.? For quite some time he was in our office on chronic opioid program,?He was suspended in our office from opioid program because he had a pill count which was 20 pills short.? He was suspended for 6 months because he was low risk for opioid addiction.? If he will be found to have in discrepancies with his pill count again his suspension now will before the full year. Review of Systems Const All systems reviewed & are unremarkable except as noted in HPI and below Physical Exam Vital Signs: Last Vital Signs Pulse 103 H 04/21/24 13:18 BP 121/92 H 04/21/24 13:18 Pulse Ox 97 04/21/24 13:18 Oxygen Delivery Method Room Air 04/21/24 13:18 BMI result Body Mass Index 34.3 General: awake, oriented. Answers questions appropriately. Appears tired. Speech clear. Skin: warm, dry, intact HEENT: Normocephalic. Hearing intact. Cardiac: External chest normal in appearance. Respiratory: No cough, audible wheezing or stridor. Abdomen: without gross distension. MS: No obvious swelling or deformity Able to transition from sit to stand unassisted. Ambulates with bilaterally normal heel strike and toe off Neurological: Oriented to person, place, time and situation. Thought process intact. Psychiatric: Appropriate mood and affect. Good judgment and insight. Const Other: Assessment & Plan Assessment & Plan (1) Spondylosis of cervical spine with radiculopathy: Code(s): M47.22 - Other spondylosis with radiculopathy, cervical region Category: Medical (2) Myofascial pain: Code(s): M79.18 - Myalgia, other site Category: Medical (3) Osteoarthritis of knees, bilateral: Code(s): M17.0 - Bilateral primary osteoarthritis of knee Category: Medical (4) Osteoarthritis of right shoulder: Code(s): M19.011 - Primary osteoarthritis, right shoulder Category: Medical (5) Arthritis of left hip: Code(s): M16.12 - Unilateral primary osteoarthritis, left hip Category: Medical Plan Patient presented back to the office today for follow up chronic pain and chronic opioid management. [place] was reviewed and without concerns. No obvious signs of diversion, abuse or misuse of the opioid medications. 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 No new prescription needed today Patient to follow-up in the office in 1 month, sooner if needed. All questions and concerns have been answered and patient agrees with the plan. Note: He was suspended from the opioid program previously because he was 20 pills short. His risk was mild and he was suspended for 6 month. If there is a second violation his suspension will be for a full year. Coding Level of Care Code Est Pt Level 3 (22801) Diagnoses Spondylosis of cervical spine with radiculopathy M47.22 Myofascial pain M79.18 Osteoarthritis of knees, bilateral M17.0 Osteoarthritis of right shoulder M19.011 Arthritis of left hip M16.12
[2024-04-21 13:18] VITALS: BP 121/92; PULSE 103; O2SAT 97; BMI 34.3
== END 2024-04-21 13:23 | disposition home or self-care (01) ==
PROVIDERS: PCP Internal Medicine; Visit Provider Registered Nurse Emergency
DX: M79.18 Myalgia, other site (principal); M17.0 Bilateral primary osteoarthritis of knee; M19.011 Primary osteoarthritis, right shoulder; M16.12 Unilateral primary osteoarthritis, left hip
CPT/HCPCS: 99213

== ENCOUNTER → 2024-04-21 13:10 | Outpatient (BNVA) | payer MEDICARE, MEDICAID, SELFPAY | PROVIDERS: PCP Internal Medicine; Visit Provider Registered Nurse Emergency | DX: Z51.81 Encounter for therapeutic drug level monitoring (principal); F11.20 Opioid dependence, uncomplicated; M47.22 Other spondylosis with radiculopathy, cervical region; M79.18 Myalgia, other site; M17.0 Bilateral primary osteoarthritis of knee; M19.011 Primary osteoarthritis, right shoulder; M16.12 Unilateral primary osteoarthritis, left hip | CPT/HCPCS: 99212 ==

== ENCOUNTER 2024-06-05 14:13 | Outpatient (AMB) | payer MEDICARE, SELFPAY ==
--- NOTE | 2024-06-05 14:22 | MHC.OFFVIS ---
Vital Signs 06/05/24 14:33 Height 5 ft 10 in Weight 238 lb BMI 34.1 BP 132/78 Blood Pressure Location Rt brachial Position Sitting Pulse 78 Pulse Source Pulse Oximeter Pulse Oximetry (%) 98 Oxygen Delivery Method Room Air Intake Visit Reasons: Pill Count Intake Note: Madi comes in today for a pill count to oxycodone, patient should have 3 tablets and presents with 34 tablets which he last took today 06/05/24 at 11 am. 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 Patient is prescribed oxycodone 10mg po tid prn. He arrived today with the expectation of having #3 pills, he presented #34 pills which were counted in the presence of two staff members and returned to the patient in the original prescription bottle. Patient was hospitalized at [facility] last month for right 2nd toe amputation due to osteomyelitis. Discharge paperwork was scanned into computer today. Pain is reported today as 06/03 and last dose of pain medication was taken at 11:00 am today. Patient states sleep, mobility and overall level of functioning improved with use of his opioid medication. Denies side effects including somnolence, constipation, urinary retention, itching, dyspnea, rash, dizziness or weakness. THC use, obtains from dispensary. Occasionally drinks beer. Prior visit with Dr Turner: h/o neck pain low back pain as well as right shoulder and bilateral knee pain, which have been present for many years.?the neck pain starts midline and radiates to bilateral shoulders, with associated numbness down the entire left arm and moderate pain from the shoulder to the elbow.? He denies any significant weakness of bilateral upper extremities.? In the past he was under the care of Dr. Diaz and managed with morphine 30 mg twice a day as well as multiple injections and RFA for the lumbar spine.? Most recently, he has been seen at [facility].? They have treated him with injections, the last being a few months ago with a left-sided neck injection.? He reports significant pain relief for the 1st month and then slowly his pain returns by the end of the 2nd month.? He reports seeing a neurosurgeon in the past and was told he was not a surgical candidate. He also reports trialing buprenorphine in the past with Dr. Diaz, which he states had negative effect on his motor function.? He has tried and failed physical therapy multiple times.? In the past he had good relief with chiropractic manipulation but has not done this for many year.? For quite some time he was in our office on chronic opioid program,?He was suspended in our office from opioid program because he had a pill count which was 20 pills short.? He was suspended for 6 months because he was low risk for opioid addiction.? If he will be found to have in discrepancies with his pill count again his suspension now will before the full year. [facility] Medical History (Updated 06/05/24 @ 16:13 by EVA Krishnan) Osteomyelitis of foot Hyponatremia Hypertension Amputation of toe of right foot Diabetic infection of right foot Diabetes mellitus type 2, insulin dependent Chronic HFrEF (heart failure with reduced ejection fraction) Spondylosis of cervical spine with radiculopathy Myofascial pain Osteoarthritis of knees, bilateral Osteoarthritis of right shoulder Cervical spinal stenosis Arthritis of left hip Review of Systems Const All systems reviewed & are unremarkable except as noted in HPI and below Physical Exam General: awake, oriented. Answers questions appropriately. Clear speech. No acute distress. Skin: warm, dry, intact HEENT: Normocephalic. Hearing intact. Cardiac: External chest normal in appearance. Respiratory: No cough, audible wheezing or stridor. Abdomen: without gross distension. MS: No obvious swelling or deformity Able to transition from sit to stand unassisted. Ambulates with bilaterally normal heel strike and toe off, except on the right due to recent right 2nd toe amputation. Uses cane with ambulation. Mildly antalgic gait with limping. Neurological: Oriented to person, place, time and situation. Thought process intact. Psychiatric: Appropriate mood and affect. Good judgment and insight. Denies HI/SI or hallucinations. Const Other: Results Reviewed Results Reviewed: No imaging reports are available for review today. Assessment & Plan Assessment & Plan (1) Spondylosis of cervical spine with radiculopathy: Code(s): M47.22 - Other spondylosis with radiculopathy, cervical region Category: Medical (2) Myofascial pain: Code(s): M79.18 - Myalgia, other site Category: Medical (3) Osteoarthritis of knees, bilateral: Code(s): M17.0 - Bilateral primary osteoarthritis of knee Category: Medical (4) Osteoarthritis of right shoulder: Code(s): M19.011 - Primary osteoarthritis, right shoulder Category: Medical (5) Arthritis of left hip: Code(s): M16.12 - Unilateral primary osteoarthritis, left hip Category: Medical (6) Amputation of toe of right foot: Comment: [facility] April [address]24 Dr. Aaron Garcia Right 2nd toe amputation Code(s): S98.131A - Complete traumatic amputation of one right lesser toe, initial encounter Category: Medical Plan Patient presented back to the office today for follow up chronic pain and chronic opioid management. Masspat was reviewed and without concerns. No obvious signs of diversion, abuse or misuse of the opioid medications. Prescription for oxycodone 10mg po tid prn with an advanced date of 06/15/24, due to surplus in medication r/t recent [facility] hospitalization for right 2nd toe amputation. Patient to follow-up in the office in 1 month, sooner if needed. All questions and concerns have been answered and patient agrees with the plan. Note: He was suspended from the opioid program previously because he was 20 pills short. His risk was mild and he was suspended for 6 month. If there is a second violation his suspension will be for a full year. Medications: Changed From oxycodone Partial Fill upon patient request. 10 mg PO TID 14 days PRN 42 tabs 0RF pain M17.0 - Bilateral primary osteoarthritis of knee, M19.011 - Primary osteoarthritis, right shoulder, M48.02 - Spinal stenosis, cervical region, M79.18 - Myalgia, other site To oxycodone Partial Fill upon patient request. 10 mg PO TID 30 days PRN 90 tabs 0RF pain M17.0 - Bilateral primary osteoarthritis of knee, M19.011 - Primary osteoarthritis, right shoulder, M48.02 - Spinal stenosis, cervical region, M79.18 - Myalgia, other site Coding Level of Care Code Est Pt Level 4 (93204) Diagnoses Spondylosis of cervical spine with radiculopathy M47.22 Myofascial pain M79.18 Osteoarthritis of knees, bilateral M17.0 Osteoarthritis of right shoulder M19.011 Arthritis of left hip M16.12 Amputation of toe of right foot S98.590B
[2024-06-05 14:33] VITALS: BP 132/78; PULSE 78; O2SAT 98; BMI 34.1
== END 2024-06-05 14:34 | disposition home or self-care (01) ==
PROVIDERS: PCP Internal Medicine; Visit Provider Nurse Practitioner Family
DX: M47.22 Other spondylosis with radiculopathy, cervical region (principal); M79.18 Myalgia, other site; M17.0 Bilateral primary osteoarthritis of knee; Z79.891 Long term (current) use of opiate analgesic; M19.011 Primary osteoarthritis, right shoulder; M16.12 Unilateral primary osteoarthritis, left hip; S98.131A Complete traumatic amputation of one right lesser toe, initial encounter
CPT/HCPCS: 99214

== ENCOUNTER → 2024-06-05 14:13 | Outpatient (BNVA) | payer MEDICARE, SELFPAY | PROVIDERS: PCP Internal Medicine; Visit Provider Nurse Practitioner Family | DX: Z51.81 Encounter for therapeutic drug level monitoring (principal); F11.20 Opioid dependence, uncomplicated; M47.22 Other spondylosis with radiculopathy, cervical region; M79.18 Myalgia, other site; M17.0 Bilateral primary osteoarthritis of knee; M19.011 Primary osteoarthritis, right shoulder; M16.12 Unilateral primary osteoarthritis, left hip; S98.131D Complete traumatic amputation of one right lesser toe, subsequent encounter | CPT/HCPCS: 99212 ==

== ENCOUNTER 2024-07-05 13:52 | Outpatient (AMB) | payer MEDICARE, SELFPAY ==
[2024-07-05 14:00] VITALS: BP 131/67; PULSE 93; O2SAT 92; BMI 33.7
--- NOTE | 2024-07-05 14:00 | MHC.OFFVIS ---
Vital Signs 07/05/24 14:00 Height 5 ft 10 in Weight 235 lb BMI 33.7 BP 131/67 Blood Pressure Location Rt brachial Position Sitting Pulse 93 Pulse Source Pulse Oximeter Pulse Oximetry (%) 92 Oxygen Delivery Method Room Air Intake Visit Reasons: Pill Count Allergies No Known Allergies Allergy (Verified 07/05/24 14:01) Medication List - Last Reconciled 07/05/24 by Audrey Barrera amlodipine 10 mg PO DAILY atorvastatin 10 mg PO DAILY duloxetine 60 mg PO DAILY eszopiclone 3 mg PO BEDTIME PRN gabapentin 800 mg PO QID levothyroxine 50 mcg PO DAILY levothyroxine 75 mcg PO DAILY losartan 25 mg PO DAILY magnesium oxide 500 mg PO DAILY metformin 1,000 mg PO BID metformin ER 500 mg PO BID naloxone 4 mg/actuation (Narcan) 4 mg intranasal Q3M PRN oxycodone 10 mg PO TID PRN 30 days pantoprazole 40 mg PO DAILY HPI Comments Details: Madi presents to the office today for follow up chronic pain and chronic opioid management. Patient is prescribed oxycodone 10mg po tid prn. He arrived today with the expectation of having 33 pills, he presented 37 pills which were counted in the presence of two staff members and returned to the patient in the original prescription bottle. Pain is reported today as 8/10 and last dose of pain medication was taken at 11am today. Patient states sleep, mobility and overall level of functioning improved with use of his opioid medication. Denies side effects including somnolence, constipation, urinary retention, itching, dyspnea, rash, dizziness or weakness. THC use, obtains from dispensary. Occassionally drinks beer. Prior visit with Dr Turner: h/o neck pain low back pain as well as right shoulder and bilateral knee pain, which have been present for many years.?the neck pain starts midline and radiates to bilateral shoulders, with associated numbness down the entire left arm and moderate pain from the shoulder to the elbow.? He denies any significant weakness of bilateral upper extremities.? In the past he was under the care of Dr. Diaz and managed with morphine 30 mg twice a day as well as multiple injections and RFA for the lumbar spine.? Most recently, he has been seen at [facility].? They have treated him with injections, the last being a few months ago with a left-sided neck injection.? He reports significant pain relief for the 1st month and then slowly his pain returns by the end of the 2nd month.? He reports seeing a neurosurgeon in the past and was told he was not a surgical candidate. He also reports trialing buprenorphine in the past with Dr. Diaz, which he states had negative effect on his motor function.? He has tried and failed physical therapy multiple times.? In the past he had good relief with chiropractic manipulation but has not done this for many year.? For quite some time he was in our office on chronic opioid program,?He was suspended in our office from opioid program because he had a pill count which was 20 pills short.? He was suspended for 6 months because he was low risk for opioid addiction.? If he will be found to have in discrepancies with his pill count again his suspension now will before the full year. COUNTS INCLUDE 234 BEDS AT THE [facility] Medical History (Updated 06/05/24 @ 16:13 by EVA Krishnan) Osteomyelitis of foot Hyponatremia Hypertension Amputation of toe of right foot Diabetic infection of right foot Diabetes mellitus type 2, insulin dependent Chronic HFrEF (heart failure with reduced ejection fraction) Spondylosis of cervical spine with radiculopathy Myofascial pain Osteoarthritis of knees, bilateral Osteoarthritis of right shoulder Cervical spinal stenosis Arthritis of left hip Review of Systems Const All systems reviewed & are unremarkable except as noted in HPI and below Physical Exam Vital Signs: Last Vital Signs Pulse 93 07/05/24 14:00 BP 131/67 07/05/24 14:00 Pulse Ox 92 07/05/24 14:00 Oxygen Delivery Method Room Air 07/05/24 14:00 BMI result Body Mass Index 33.7 General: awake, oriented. Answers questions appropriately. Appears tired. Speech clear. Skin: warm, dry, intact HEENT: Normocephalic. Hearing intact. Cardiac: External chest normal in appearance. Respiratory: No cough, audible wheezing or stridor. Abdomen: without gross distension. MS: No obvious swelling or deformity Able to transition from sit to stand unassisted. Neurological: Oriented to person, place, time and situation. Thought process intact. Psychiatric: Appropriate mood and affect. Good judgment and insight. Const Other: Assessment & Plan Assessment & Plan (1) Spondylosis of cervical spine with radiculopathy: Code(s): M47.22 - Other spondylosis with radiculopathy, cervical region Category: Medical (2) Myofascial pain: Code(s): M79.18 - Myalgia, other site Category: Medical (3) Osteoarthritis of knees, bilateral: Code(s): M17.0 - Bilateral primary osteoarthritis of knee Category: Medical (4) Osteoarthritis of right shoulder: Code(s): M19.011 - Primary osteoarthritis, right shoulder Category: Medical (5) Arthritis of left hip: Code(s): M16.12 - Unilateral primary osteoarthritis, left hip Category: Medical Plan Patient presented back to the office today for follow up chronic pain and chronic opioid management. Masspat was reviewed and without concerns. No obvious signs of diversion, abuse or misuse of the opioid medications. Prescription for oxycodone 10mg po tid prn with an advanced date of 07/17/24 Patient to follow-up in the office in 1 month, sooner if needed. All questions and concerns have been answered and patient agrees with the plan. Note: He was suspended from the opioid program previously because he was 20 pills short. His risk was mild and he was suspended for 6 month. If there is a second violation his suspension will be for a full year. Medications: Refilled oxycodone Partial Fill upon patient request. 10 mg PO TID PRN 90 tabs 0RF pain 30 days M17.0 - Bilateral primary osteoarthritis of knee, M19.011 - Primary osteoarthritis, right shoulder, M48.02 - Spinal stenosis, cervical region, M79.18 - Myalgia, other site Coding Level of Care Code Est Pt Level 4 (22047) Complex EM visit Add On G2211 Diagnoses Spondylosis of cervical spine with radiculopathy M47.22 Myofascial pain M79.18 Osteoarthritis of knees, bilateral M17.0 Osteoarthritis of right shoulder M19.011 Arthritis of left hip M16.12
== END 2024-07-05 14:12 | disposition home or self-care (01) ==
PROVIDERS: PCP Internal Medicine; Visit Provider Registered Nurse Emergency
DX: M47.22 Other spondylosis with radiculopathy, cervical region (principal); M79.18 Myalgia, other site; M17.0 Bilateral primary osteoarthritis of knee; M19.011 Primary osteoarthritis, right shoulder; M16.12 Unilateral primary osteoarthritis, left hip
CPT/HCPCS: 99214; G2211

== ENCOUNTER → 2024-07-05 13:52 | Outpatient (BNVA) | payer MEDICARE, SELFPAY | PROVIDERS: PCP Internal Medicine; Visit Provider Registered Nurse Emergency | DX: M17.0 Bilateral primary osteoarthritis of knee (principal); M19.011 Primary osteoarthritis, right shoulder; M16.12 Unilateral primary osteoarthritis, left hip; M47.22 Other spondylosis with radiculopathy, cervical region; M79.18 Myalgia, other site | CPT/HCPCS: 99212 ==

== ENCOUNTER 2024-08-02 13:55 | Outpatient (AMB) | payer MEDICARE, SELFPAY ==
[2024-08-02 14:02] VITALS: BP 115/63; PULSE 107; O2SAT 94; BMI 30.8
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
== END 2024-08-02 14:10 | disposition home or self-care (01) ==
PROVIDERS: PCP Internal Medicine; Visit Provider Registered Nurse Emergency
DX: M47.22 Other spondylosis with radiculopathy, cervical region (principal); M79.18 Myalgia, other site; M17.0 Bilateral primary osteoarthritis of knee; M19.011 Primary osteoarthritis, right shoulder; M16.12 Unilateral primary osteoarthritis, left hip
CPT/HCPCS: 99214; G2211

== ENCOUNTER → 2024-08-02 13:55 | Outpatient (BNVA) | payer MEDICARE, SELFPAY | PROVIDERS: PCP Internal Medicine; Visit Provider Registered Nurse Emergency | DX: M47.22 Other spondylosis with radiculopathy, cervical region (principal); M79.18 Myalgia, other site; M19.011 Primary osteoarthritis, right shoulder; M17.0 Bilateral primary osteoarthritis of knee; M16.12 Unilateral primary osteoarthritis, left hip; Z79.891 Long term (current) use of opiate analgesic; Z51.81 Encounter for therapeutic drug level monitoring | CPT/HCPCS: 99212 ==

== ENCOUNTER 2024-08-30 14:02 | Outpatient (AMB) | payer MEDICARE, MEDICAID, SELFPAY ==
[2024-08-30 14:09] VITALS: BP 158/77; PULSE 112; O2SAT 94; BMI 33.7
--- NOTE | 2024-08-30 14:09 | A.OFFVIS_ITS ---
Vital Signs 08/30/24 14:09 Height 5 ft 10 in Weight 235 lb BMI 33.7 BP 158/77 H Blood Pressure Location Rt brachial Position Sitting Pulse 112 H Pulse Source Pulse Oximeter Pulse Oximetry (%) 94 Oxygen Delivery Method Room Air Intake Visit Reasons: Pill Count Allergies No Known Allergies Allergy (Verified 08/30/24 14:09) Medication List - Last Reconciled 08/30/24 by Audrey Barrera amlodipine 10 mg PO DAILY atorvastatin 10 mg PO DAILY duloxetine 60 mg PO DAILY eszopiclone 3 mg PO BEDTIME PRN gabapentin 800 mg PO QID levothyroxine 50 mcg PO DAILY levothyroxine 75 mcg PO DAILY losartan 25 mg PO DAILY magnesium oxide 500 mg PO DAILY metformin 1,000 mg PO BID metformin ER 500 mg PO BID methocarbamol 500 mg PO BID PRN naloxone 4 mg/actuation (Narcan) 4 mg intranasal Q3M PRN oxycodone 10 mg PO TID PRN 30 days pantoprazole 40 mg PO DAILY HPI Comments Details: Madi presents to the office today for follow up chronic pain and chronic opioid management. Patient is prescribed oxycodone 10mg po tid prn. He arrived today with the expectation of having 45 pills, he presented 52 pills which were counted in the presence of two staff members and returned to the patient in the original prescription bottle. Pain is reported today as 6/10 and last dose of pain medication was taken at 10am today. Patient states sleep, mobility and overall level of functioning improved with use of his opioid medication. Denies side effects including somnolence, constipation, urinary retention, itching, dyspnea, rash, dizziness or weakness. Prior visit with Dr Turner: h/o neck pain low back pain as well as right shoulder and bilateral knee pain, which have been present for many years.?the neck pain starts midline and radiates to bilateral shoulders, with associated numbness down the entire left arm and moderate pain from the shoulder to the elbow.? He denies any significant weakness of bilateral upper extremities.? In the past he was under the care of Dr. Diaz and managed with morphine 30 mg twice a day as well as multiple injections and RFA for the lumbar spine.? Most recently, he has been seen at [facility].? They have treated him with injections, the last being a few months ago with a left-sided neck injection.? He reports significant pain relief for the 1st month and then slowly his pain returns by the end of the 2nd month.? He reports seeing a neurosurgeon in the past and was told he was not a surgical candidate. He also reports trialing buprenorphine in the past with Dr. Diaz, which he states had negative effect on his motor function.? He has tried and failed physical therapy multiple times.? In the past he had good relief with chiropractic manipulation but has not done this for many year.? For quite some time he was in our office on chronic opioid program,?He was suspended in our office from opioid program because he had a pill count which was 20 pills short.? He was suspended for 6 months because he was low risk for opioid addiction.? If he will be found to have in discrepancies with his pill count again his suspension now will before the full year. [facility] Medical History (Updated 06/05/24 @ 16:13 by EVA Krishnan) Osteomyelitis of foot Hyponatremia Hypertension Amputation of toe of right foot Diabetic infection of right foot Diabetes mellitus type 2, insulin dependent Chronic HFrEF (heart failure with reduced ejection fraction) Spondylosis of cervical spine with radiculopathy Myofascial pain Osteoarthritis of knees, bilateral Osteoarthritis of right shoulder Cervical spinal stenosis Arthritis of left hip Review of Systems Const All systems reviewed & are unremarkable except as noted in HPI and below Physical Exam Vital Signs: Last Vital Signs Pulse 112 H 08/30/24 14:09 BP 158/77 H 08/30/24 14:09 Pulse Ox 94 08/30/24 14:09 Oxygen Delivery Method Room Air 08/30/24 14:09 BMI result Body Mass Index 33.7 General: awake, oriented. Answers questions appropriately. Appears tired. Speech clear. Skin: warm, dry, intact HEENT: Normocephalic. Hearing intact. Cardiac: External chest normal in appearance. Respiratory: No cough, audible wheezing or stridor. Abdomen: without gross distension. MS: No obvious swelling or deformity Able to transition from sit to stand unassisted. Neurological: Oriented to person, place, time and situation. Thought process in tact. Psychiatric: Appropriate mood and affect. Good judgment and insight. Const Other: Assessment & Plan Assessment & Plan (1) Spondylosis of cervical spine with radiculopathy: Code(s): M47.22 - Other spondylosis with radiculopathy, cervical region Category: Medical (2) Myofascial pain: Code(s): M79.18 - Myalgia, other site Category: Medical (3) Osteoarthritis of knees, bilateral: Code(s): M17.0 - Bilateral primary osteoarthritis of knee Category: Medical (4) Osteoarthritis of right shoulder: Code(s): M19.011 - Primary osteoarthritis, right shoulder Category: Medical (5) Arthritis of left hip: Code(s): M16.12 - Unilateral primary osteoarthritis, left hip Category: Medical Plan Patient presented back to the office today for follow up chronic pain and chronic opioid management. Masspat was reviewed and without concerns. No obvious signs of diversion, abuse or misuse of the opioid medications. Prescription for oxycodone 10mg po tid prn with an advanced date of 09/16/24 Patient to follow-up in the office in 1 month, sooner if needed. All questions and concerns have been answered and patient agrees with the plan. Note: He was suspended from the opioid program previously because he was 20 pills short. His risk was mild and he was suspended for 6 month. If there is a second violation his suspension will be for a full year. Medications: Refilled oxycodone Partial Fill upon patient request. 10 mg PO TID PRN 90 tabs 0RF pain 30 days M17.0 - Bilateral primary osteoarthritis of knee, M19.011 - Primary osteoarthritis, right shoulder, M48.02 - Spinal stenosis, cervical region, M7 9.18 - Myalgia, other site Coding Level of Care Code Est Pt Level 4 (95830) Complex EM visit Add On G2211 Diagnoses Spondylosis of cervical spine with radiculopathy M47.22 Myofascial pain M79.18 Osteoarthritis of knees, bilateral M17.0 Osteoarthritis of right shoulder M19.011 Arthritis of left hip M16.12
== END 2024-08-30 14:19 | disposition home or self-care (01) ==
PROVIDERS: PCP Internal Medicine; Visit Provider Registered Nurse Emergency
DX: M47.22 Other spondylosis with radiculopathy, cervical region (principal); M79.18 Myalgia, other site; M17.0 Bilateral primary osteoarthritis of knee; M19.011 Primary osteoarthritis, right shoulder; M16.12 Unilateral primary osteoarthritis, left hip
CPT/HCPCS: 99214; G2211

== ENCOUNTER → 2024-08-30 14:02 | Outpatient (BNVA) | payer MEDICARE, SELFPAY | PROVIDERS: PCP Internal Medicine; Visit Provider Registered Nurse Emergency | DX: M47.22 Other spondylosis with radiculopathy, cervical region (principal); M79.18 Myalgia, other site; M17.0 Bilateral primary osteoarthritis of knee; M19.011 Primary osteoarthritis, right shoulder; M16.12 Unilateral primary osteoarthritis, left hip; M48.02 Spinal stenosis, cervical region; G89.29 Other chronic pain; Z51.81 Encounter for therapeutic drug level monitoring; Z79.891 Long term (current) use of opiate analgesic | CPT/HCPCS: 99212 ==

== ENCOUNTER 2024-10-04 13:52 | Outpatient (AMB) | payer MEDICARE, MEDICAID, SELFPAY ==
--- NOTE | 2024-10-04 13:55 | A.OFFVIS_ITS ---
Vital Signs 10/04/24 14:12 Height 5 ft 10 in Weight 238 lb 2 oz BMI 34.2 BP 116/71 Blood Pressure Location Rt brachial Position Sitting Pulse 95 Pulse Source Pulse Oximeter Pulse Oximetry (%) 96 Oxygen Delivery Method Room Air Intake Visit Reasons: PILL COUNT Intake Note: Madi comes in today for a pill count to oxycodone, patient should have 33 tablets and presents with Drive In Waiter/Waitress Required: No Accompanied by: Self / Same As Patient Allergies No Known Allergies Allergy (Verified 10/04/24 13:57) HPI Comments Details: Madi presents to the office today for follow up chronic pain and chronic opioid management. Patient is prescribed oxycodone 10mg po tid prn. He arrived today with the expectation of having 33 pills, he presented 41 pills which were counted in the presence of two staff members and returned to the patient in the original prescription bottle. Pain is reported today as 8/10 and last dose of pain medication was taken at 6am today. Patient states sleep, mobility and overall level of functioning improved with use of his opioid medication. Denies side effects including somnolence, constipation, urinary retention, itching, dyspnea, rash, dizziness or weakness. Prior visit with Dr Turner: h/o neck pain low back pain as well as right shoulder and bilateral knee pain, which have been present for many years.?the neck pain starts midline and radiates to bilateral shoulders, with associated numbness down the entire left arm and moderate pain from the shoulder to the elbow.? He denies any significant weakness of bilateral upper extremities.? In the past he was under the care of Dr. Diaz and managed with morphine 30 mg twice a day as well as multiple injections and RFA for the lumbar spine.? Most recently, he has been seen at [facility].? They have treated him with injections, the last being a few months ago with a left-sided neck injection.? He reports significant pain relief for the 1st month and then slowly his pain returns by the end of the 2nd month.? He reports seeing a neurosurgeon in the past and was told he was not a surgical candidate. He also reports trialing buprenorphine in the past with Dr. Diaz, which he states had negative effect on his motor function.? He has tried and failed physical therapy multiple times.? In the past he had good relief with chiropractic manipulation but has not done this for many year.? For quite some time he was in our office on chronic opioid program,?He was suspended in our office from opioid program because he had a pill count which was 20 pills short.? He was suspended for 6 months because he was low risk for opioid addiction.? If he will be found to have in discrepancies with his pill count again his suspension now will before the full year. [facility] Medical History (Updated 06/05/24 @ 16:13 by EVA Krishnan) Osteomyelitis of foot Hyponatremia Hypertension Amputation of toe of right foot Diabetic infection of right foot Diabetes mellitus type 2, insulin dependent Chronic HFrEF (heart failure with reduced ejection fraction) Spondylosis of cervical spine with radiculopathy Myofascial pain Osteoarthritis of knees, bilateral Osteoarthritis of right shoulder Cervical spinal stenosis Arthritis of left hip Review of Systems Const All systems reviewed & are unremarkable except as noted in HPI and below Physical Exam Vital Signs: Last Vital Signs Pulse 95 10/04/24 14:12 BP 116/71 10/04/24 14:12 Pulse Ox 96 10/04/24 14:12 Oxygen Delivery Method Room Air 10/04/24 14:12 BMI result Body Mass Index 34.2 General: awake, oriented. Answers questions appropriately. Appears tired. Speech clear. Skin: warm, dry, intact HEENT: Normocephalic. Hearing intact. Cardiac: External chest normal in appearance. Respiratory: No cough, audible wheezing or stridor. Abdomen: without gross distension. MS: No obvious swelling or deformity Able to transition from sit to stand unassisted. Neurological: Oriented to person, place, time and situation. Thought process intact. Psychiatric: Appropriate mood and affect. Good judgment and insight. Const Other: Assessment & Plan Assessment & Plan (1) Spondylosis of cervical spine with radiculopathy: Code(s): M47.22 - Other spondylosis with radiculopathy, cervical region Category: Medical (2) Myofascial pain: Code(s): M79.18 - Myalgia, other site Category: Medical (3) Osteoarthritis of knees, bilateral: Code(s): M17.0 - Bilateral primary osteoarthritis of knee Category: Medical (4) Osteoarthritis of right shoulder: Code(s): M19.011 - Primary osteoarthritis, right shoulder Category: Medical (5) Arthritis of left hip: Code(s): M16.12 - Unilateral primary osteoarthritis, left hip Category: Medical Plan Patient presented back to the office today for follow up chronic pain and chronic opioid management. Masspat was reviewed and without concerns. No obvious signs of diversion, abuse or misuse of the opioid medications. Prescription for oxycodone 10mg po tid prn with an advanced date of 10/16/24 Refill sent for methocarbamol 500 mg p.o. twice daily as needed. Patient advised on cautions for use Patient to follow-up in the office in 1 month, sooner if needed. All questions and concerns have been answered and patient agrees with the plan. Note: He was suspended from the opioid program previously because he was 20 pills short. His risk was mild and he was suspended for 6 month. If there is a second violation his suspension will be for a full year. Medications: Refilled oxycodone Partial Fill upon patient request. 10 mg PO TID 30 days PRN 90 tabs 0RF pain M17.0 - Bilateral primary osteoarthritis of knee, M19.011 - Primary osteoarthritis, right shoulder, M48.02 - Spinal stenosis, cervical region, M79.18 - Myalgia, other site methocarbamol No driving while taking this medication. 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
[2024-10-04 14:12] VITALS: BP 116/71; PULSE 95; O2SAT 96; BMI 34.2
== END 2024-10-04 14:42 | disposition home or self-care (01) ==
PROVIDERS: PCP Internal Medicine; Visit Provider Registered Nurse Emergency
DX: M47.22 Other spondylosis with radiculopathy, cervical region (principal); M79.18 Myalgia, other site; M17.0 Bilateral primary osteoarthritis of knee; M19.011 Primary osteoarthritis, right shoulder; M16.12 Unilateral primary osteoarthritis, left hip
CPT/HCPCS: 99214; G2211

== ENCOUNTER → 2024-10-04 13:52 | Outpatient (BNVA) | payer MEDICARE, MEDICAID, SELFPAY | PROVIDERS: PCP Internal Medicine; Visit Provider Registered Nurse Emergency | DX: M47.22 Other spondylosis with radiculopathy, cervical region (principal); M79.18 Myalgia, other site; G89.29 Other chronic pain; M17.0 Bilateral primary osteoarthritis of knee; M19.011 Primary osteoarthritis, right shoulder; M16.12 Unilateral primary osteoarthritis, left hip; M48.02 Spinal stenosis, cervical region; Z51.81 Encounter for therapeutic drug level monitoring; Z79.891 Long term (current) use of opiate analgesic | CPT/HCPCS: 99212 ==

== ENCOUNTER 2024-11-01 14:01 | Outpatient (AMB) | payer MEDICARE, MEDICAID, SELFPAY ==
[2024-11-01 14:05] VITALS: BP 118/58; PULSE 91; RESP 16; O2SAT 92; BMI 34.1
--- NOTE | 2024-11-01 14:05 | A.OFFVIS_ITS ---
Vital Signs 11/01/24 14:05 Height 5 ft 10 in Weight 238 lb BMI 34.1 BP 118/58 L Blood Pressure Location Lt brachial Position Sitting Respiration 16 Pulse 91 Pulse Source Pulse Oximeter Pulse Oximetry (%) 92 Oxygen Delivery Method Room Air Intake Visit Reasons: PILL COUNT Allergies No Known Allergies Allergy (Verified 11/01/24 14:06) Medication List - Last Reconciled 11/01/24 by Lisette Ruby LPN atorvastatin 10 mg PO DAILY eszopiclone 3 mg PO BEDTIME PRN fluticasone propionate 50 mcg/actuation 1 spray intranasal DAILY gabapentin 800 mg PO QID levothyroxine 50 mcg PO DAILY loratadine 10 mg PO DAILY losartan 25 mg PO DAILY magnesium oxide 500 mg PO DAILY metformin 1,000 mg PO BID metformin ER 500 mg PO BID methocarbamol 500 mg PO BID PRN naloxone 4 mg/actuation (Narcan) 4 mg intranasal Q3M PRN oxycodone 10 mg PO TID PRN 30 days pantoprazole 40 mg PO DAILY HPI Comments Details: Madi presents to the office today for follow up chronic pain and chronic opioid management. Patient is prescribed oxycodone 10mg po tid prn. He arrived today with the expectation of having 39 pills, he presented 52 pills which were counted in the presence of two staff members and returned to the patient in the original prescription bottle. Pain is reported today as 7/10 and last dose of pain medication was taken at 9am today. Patient states sleep, mobility and overall level of functioning improved with use of his opioid medication. Denies side effects including somnolence, constipation, urinary retention, itching, dyspnea, rash, dizziness or weakness. Endorses worsening polyarthralgia. Significant discomfort of the left thumb joint. Would like referral to treatment center where he can inquire about injections to the thumb. Prior visit with Dr Turner: h/o neck pain low back pain as well as right shoulder and bilateral knee pain, which have been present for many years.?the neck pain starts midline and radiates to bilateral shoulders, with associated numbness down the entire left arm and moderate pain from the shoulder to the elbow.? He denies any significant weakness of bilateral upper extremities.? In the past he was under the care of Dr. Diaz and managed with morphine 30 mg twice a day as well as multiple injections and RFA for the lumbar spine.? Most recently, he has been seen at [facility].? They have treated him with injections, the last being a few months ago with a left-sided neck injection.? He reports significant pain relief for the 1st month and then slowly his pain returns by the end of the 2nd month.? He reports seeing a neurosurgeon in the past and was told he was not a surgical candidate. He also reports trialing buprenorphine in the past with Dr. Diaz, which he states had negative effect on his motor function.? He has tried and failed physical therapy multiple times.? In the past he had good relief with chiropractic manipulation but has not done this for many year.? For quite some time he was in our office on chronic opioid program,?He was suspended in our office from opioid program because he had a pill count which was 20 pills short.? He was suspended for 6 months because he was low risk for opioid addiction.? If he will be found to have in discrepancies with his pill count again his suspension now will before the full year. COUNT INCLUDES [facility] Medical History (Updated 11/01/24 @ 15:41 by Cleopatra Manjarrez, WOMEN'S ACTIVITIES ADVISER, GEOTHERMAL SHEET METAL WORKER) Osteomyelitis of foot Hyponatremia Hypertension Amputation of toe of right foot Diabetic infection of right foot Diabetes mellitus type 2, insulin dependent Chronic HFrEF (heart failure with reduced ejection fraction) Spondylosis of cervical spine with radiculopathy Myofascial pain Osteoarthritis of knees, bilateral Osteoarthritis of right shoulder Cervical spinal stenosis Arthritis of left hip Review of Systems Const All systems reviewed & are unremarkable except as noted in HPI and below Physical Exam Vital Signs: Last Vital Signs Pulse 91 11/01/24 14:05 Resp 16 11/01/24 14:05 BP 118/58 L 11/01/24 14:05 Pulse Ox 92 11/01/24 14:05 Oxygen Delivery Method Room Air 11/01/24 14:05 BMI result Body Mass Index 34.1 General: awake, oriented. Answers questions appropriately. Appears tired. Speech clear. Skin: warm, dry, intact HEENT: Normocephalic. Hearing intact. Cardiac: External chest normal in appearance. Respiratory: No cough, audible wheezing or stridor. Abdomen: without gross distension. MS: No obvious swelling or deformity Able to transition from sit to stand unassisted. Neurological: Oriented to person, place, time and situation. Thought process intact. Psychiatric: Appropriate mood and affect. Good judgment and insight. Const Other: Assessment & Plan Assessment & Plan (1) Spondylosis of cervical spine with radiculopathy: Code(s): M47.22 - Other spondylosis with radiculopathy, cervical region Category: Medical (2) Myofascial pain: Code(s): M79.18 - Myalgia, other site Category: Medical (3) Osteoarthritis of knees, bilateral: Code(s): M17.0 - Bilateral primary osteoarthritis of knee Category: Medical (4) Osteoarthritis of right shoulder: Code(s): M19.011 - Primary osteoarthritis, right shoulder Category: Medical (5) Arthritis of left hip: Code(s): M16.12 - Unilateral primary osteoarthritis, left hip Category: Medical Plan Patient presented back to the office today for follow up chronic pain and chronic opioid management. Masspat was reviewed and without concerns. No obvious signs of diversion, abuse or misuse of the opioid medications. Prescription for oxycodone 10mg po tid prn sent C/W methocarbamol 500 mg p.o. twice daily as needed. Patient advised on cautions for use New prescription for diclofenac topical, apply small amount up to 4 times daily as needed. Referral placed to arthritis treatment center for polyarthralgia. Patient would like to inquire about injections for the left thumb. All questions and concerns have been answered and patient agrees with the plan. Follow-up in the office in 1 month, sooner if needed. Note: He was suspended from the opioid program previously because he was 20 pills short. His risk was mild and he was suspended for 6 month. If there is a second violation his suspension will be for a full year. Orders: Referrals Rheumatology Referral M25.50 - Pain in unspecified joint Medications: New diclofenac sodium 1% apply to single elbow, wrist or hand; for hand includes palm/fingers/back of hand 2 grams topical QID 100 grams 0RF Refilled oxycodone Partial Fill upon patient request. 10 mg PO TID 30 days PRN 90 tabs 0RF pain M17.0 - Bilateral primary osteoarthritis of knee, M19.011 - Primary osteoarthritis, right shoulder, M48.02 - Spinal stenosis, cervical region, M79.18 - Myalgia, other site Coding Level of Care Code Est Pt Level 4 (59907) Complex EM visit Add On G2211 Diagnoses Spondylosis of cervical spine with radiculopathy M47.22 Myofascial pain M79.18 Osteoarthritis of knees, bilateral M17.0 Osteoarthritis of right shoulder M19.011 Arthritis of left hip M16.12
== END 2024-11-01 14:19 | disposition home or self-care (01) ==
PROVIDERS: PCP Internal Medicine; Visit Provider Registered Nurse Emergency
DX: M47.22 Other spondylosis with radiculopathy, cervical region (principal); M79.18 Myalgia, other site; M17.0 Bilateral primary osteoarthritis of knee; M19.011 Primary osteoarthritis, right shoulder; M16.12 Unilateral primary osteoarthritis, left hip
CPT/HCPCS: 99214; G2211

== ENCOUNTER → 2024-11-01 14:01 | Outpatient (BNVA) | payer MEDICARE, MEDICAID, SELFPAY | PROVIDERS: PCP Internal Medicine; Visit Provider Registered Nurse Emergency | DX: Z51.81 Encounter for therapeutic drug level monitoring (principal); F11.20 Opioid dependence, uncomplicated; M47.22 Other spondylosis with radiculopathy, cervical region; M79.18 Myalgia, other site; M17.0 Bilateral primary osteoarthritis of knee; M19.011 Primary osteoarthritis, right shoulder; M16.12 Unilateral primary osteoarthritis, left hip | CPT/HCPCS: 99212 ==

== ENCOUNTER 2024-12-07 14:21 | Outpatient (AMB) | payer MEDICARE, MEDICAID, SELFPAY ==
--- NOTE | 2024-12-07 14:22 | A.OFFVIS_ITS ---
Vital Signs 12/07/24 14:28 Height 5 ft 10 in Weight 241 lb 6 oz BMI 34.6 BP 129/66 Blood Pressure Location Rt brachial Position Sitting Pulse 93 Pulse Source Pulse Oximeter Pulse Oximetry (%) 97 Oxygen Delivery Method Room Air Intake Visit Reasons: PILL COUNT Intake Note: Madi comes in today for a pill count to oxycodone, patient should have 51 tablets and presents with 57 tablets which he last took today 12/07/24 11am. 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 Patient is prescribed oxycodone 10mg po tid prn. He arrived today with the expectation of having 51 pills, he presented 57 pills which were counted in the presence of two staff members and returned to the patient in the original prescription bottle. Pain is reported today as 10 and last dose of pain medication was taken at 11am today. Patient states sleep, mobility and overall level of functioning improved with use of his opioid medication. Denies side effects including somnolence, constipation, urinary retention, itching, dyspnea, rash, dizziness or weakness. Since last visit he was evaluated by arthritis treatment center. He had injections to the left thumb with good results. Also reporting wound to right heel which he had recent visit with vascular to evaluate. Currently taking Bactrim twice daily and doing wound care with dressing changes at home twice a day. He has a follow-up with vascular scheduled. Prior visit with Dr Turner: h/o neck pain low back pain as well as right shoulder and bilateral knee pain, which have been present for many years.?the neck pain starts midline and radiates to bilateral shoulders, with associated numbness down the entire left arm and moderate pain from the shoulder to the elbow.? He denies any significant weakness of bilateral upper extremities.? In the past he was under the care of Dr. Diaz and managed with morphine 30 mg twice a day as well as multiple injections and RFA for the lumbar spine.? Most recently, he has been seen at [facility].? They have treated him with injections, the last being a few months ago with a left-sided neck injection.? He reports significant pain relief for the 1st month and then slowly his pain returns by the end of the 2nd month.? He reports seeing a neurosurgeon in the past and was told he was not a surgical candidate. He also reports trialing buprenorphine in the past with Dr. Diaz, which he states had negative effect on his motor function.? He has tried and failed physical therapy multiple times.? In the past he had good relief with chiropractic manipulation but has not done this for many year.? For quite some time he was in our office on chronic opioid program,?He was suspended in our office from opioid program because he had a pill count which was 20 pills short.? He was suspended for 6 months because he was low risk for opioid addiction.? If he will be found to have in discrepancies with his pill count again his suspension now will before the full year. [facility] Medical History (Updated 11/01/24 @ 15:41 by Cleopatra Manjarrez, DEPENDENCY DIRECTOR, FIRE SPRINKLER SERVICE TECHNICIAN) Osteomyelitis of foot Hyponatremia Hypertension Amputation of toe of right foot Diabetic infection of right foot Diabetes mellitus type 2, insulin dependent Chronic HFrEF (heart failure with reduced ejection fraction) Spondylosis of cervical spine with radiculopathy Myofascial pain Osteoarthritis of knees, bilateral Osteoarthritis of right shoulder Cervical spinal stenosis Arthritis of left hip Review of Systems Const All systems reviewed & are unremarkable except as noted in HPI and below Physical Exam Vital Signs: Last Vital Signs Pulse 93 12/07/24 14:28 BP 129/66 12/07/24 14:28 Pulse Ox 97 12/07/24 14:28 Oxygen Delivery Method Room Air 12/07/24 14:28 BMI result Body Mass Index 34.6 General: awake, oriented. Answers questions appropriately. Appears tired. Speech clear. Skin: warm, dry, intact HEENT: Normocephalic. Hearing intact. Cardiac: External chest normal in appearance. Respiratory: No cough, audible wheezing or stridor. Abdomen: without gross distension. MS: No obvious swelling or deformity Able to transition from sit to stand unassisted. Neurological: Oriented to person, place, time and situation. Thought process intact. Psychiatric: Appropriate mood and affect. Good judgment and insight. Const Other: Assessment & Plan Assessment & Plan (1) Spondylosis of cervical spine with radiculopathy: Code(s): M47.22 - Other spondylosis with radiculopathy, cervical region Category: Medical (2) Myofascial pain: Code(s): M79.18 - Myalgia, other site Category: Medical (3) Osteoarthritis of knees, bilateral: Code(s): M17.0 - Bilateral primary osteoarthritis of knee Category: Medical (4) Osteoarthritis of right shoulder: Code(s): M19.011 - Primary osteoarthritis, right shoulder Category: Medical (5) Arthritis of left hip: Code(s): M16.12 - Unilateral primary osteoarthritis, left hip Category: Medical Plan Masspat was reviewed and without concerns. No obvious signs of diversion, abuse or misuse of the opioid medications. Prescription for oxycodone 10mg po tid prn sent C/W methocarbamol 500 mg p.o. twice daily as needed. Patient advised on cautions for use Follow up with vascular as planned All questions and concerns have been answered and patient agrees with the plan. Follow-up in the office in 1 month, sooner if needed. Note: He was suspended from the opioid program previously because he was 20 pills short. His risk was mild and he was suspended for 6 month. If there is a second violation his suspension will be for a full year. Medications: Refilled oxycodone Partial Fill upon patient request. 10 mg PO TID PRN 90 tabs 0RF pain 30 days M17.0 - Bilateral primary osteoarthritis of knee, M19.011 - Primary osteoarthritis, right shoulder, M48.02 - Spinal stenosis, cervical region, M79.18 - Myalgia, other site Coding Level of Care Code Est Pt Level 4 (01984) Complex EM visit Add On G2211 Diagnoses Spondylosis of cervical spine with radiculopathy M47.22 Myofascial pain M79.18 Osteoarthritis of knees, bilateral M17.0 Osteoarthritis of right shoulder M19.011 Arthritis of left hip M16.12
--- OUTSIDE RECORDS SUMMARY | 2024-12-07 14:23 | XMS_ITS | Continuity of Care Document ---
Author Organization [facility] ter Address [address] [place] [id number]- Care Team Providers Care Dry Primer Powder Blender Name Role Phone Luis Enrique Fox DO Primary Care Physician [id number] Date(s): 11/06/24 - 12/06/[address] [address]- Attending Physician: Luis Enrique Fox DO Admitting Physician: Luis Enrique Fox DO Referring Physician: Luis Enrique Fox DO Encounter Type: Pre-Outpt Allergies, Adverse Reactions, Alerts No Known Allergies Immunizations Given and Recorded Vaccine Date Status Refusal Reason SARS-CoV-2 (COVID-19) mRNA-1273 vaccine 11/07/21 R ecorded SARS-CoV-2 (COVID-19) mRNA-1273 vaccine 02/21/21 R ecorded SARS-CoV-2 (COVID-19) mRNA-1273 vaccine 01/27/21 R ecorded Medications amLODIPine 10 mg oral tablet 0 Refills, Maintenance, 02/21/24 9:29:00 AM EDT, Partial fill upon patient request if the prescription is for a schedule II opioid drug. Start Date: 02/21/24 Status: Ordered Repeat number: 1 amLODIPine 5 mg oral tablet 1 tablet = 5 mg, By Mouth, Daily, # 90 tablet, 0 Refills, Maintenance, 07/27/23 3:16:00 PM EDT, Tablet, [facility] #[id number], this is a reduced dose, 178, cm, 07/27/23 14:44:00 EDT, Height, 110, kg, 06/18/22 12:32:00 EDT, Dry Weight Start Date: 07/27/23 Status: Ordered Quantity: 90.0 Unit: tablet Repeat number: 1 atorvastatin 10 mg oral tablet 1 tablet = 10 mg, By Mouth, Daily, 0 Refills, Maintenance, 07/24/20 11:04:00 AM EDT Start Date: 07/24/20 Status: Ordered Repeat number: 1 Bactrim DS 800 mg-160 mg oral tablet 1 tablet, By Mouth, 2 times a day, for 14 days, # 28 tablet, 0 Refills, Acute 12/19/24 3:36:00 PM EST, 12/05/24 3:36:00 PM EST, Tablet, [facility] #[id number], Partial fill upon patient request ifthe prescription is for a schedule II opioid drug., 1 tablet By Mouth 2 times a day,x14 days, 178, cm, 12/05/24 15:08:00 EST, Height, 105.8, kg, 05/12/24 23:15:00 EDT, Dry Weight Start Date: 12/05/24 Stop Date: 12/19/24 Status: Ordered Quantity: 28.0 Unit: tablet Repeat number: 1 Cymbalta 60 mg oral enteric coated capsule 1 capsule = 60 mg, By Mouth, Daily, # 30 capsule, 0 Refills, Maintenance, 09/27/17 3:25:59 PM EST, EC Capsule Start Date: 09/27/17 Status: Ordered Quantity: 30.0 Unit: capsule Repeat number: 1 gabapentin 800 mg oral tablet 1 tablet = 800 mg, By Mouth, 4 times a day, # 270 tablet, 0 Refills, Maintenance, 10/15/11 9:36:15 AM EST, Tablet Start Date: 10/15/11 Status: Ordered Quantity: 270.0 Unit: tablet Repeat number: 1 Levothyroxine Levothyroxine, 50 mcg, By Mouth, Daily, 0 Refills, Maintenance, 03/31/23 1:21:00 PM EDT Start Date: 03/31/23 Status: Ordered Repeat number: 1 losartan 25 mg oral tablet 25 mg, 1, tablet, By Mouth, Daily, # 30 tablet, Refills 6, Tot. Refills 6, Maintenance, 10/24/24 2:40:00 PM EST, Route to Pharmacy Electronically, [facility] #[id number], 178, cm, 06/19/24 14:55:00 EDT, Height, 105.8, kg, 05/12/24 23:15:00 EDT, Dry Weight Start Date: 10/24/24 Status: Ordered Quantity: 30.0 Unit: tablet Repeat number: 7 Lunesta 3 mg oral tablet 1 tablet = 3 mg, By Mouth, Daily at bedtime, PRN for insomnia, 0 Refills, Maintenance, 10/15/11 9:35:59 AM EST, Tablet Start Date: 10/15/11 Status: Ordered Repeat number: 1 magnesium oxide base 500 mg oral tablet 0 Refills, Maintenance, 02/24/22 2:18:00 PM EDT, Partial fill upon patient request if the prescription is for a schedule II opioid drug. Start Date: 02/24/22 Status: Ordered Repeat number: 1 metFORMIN 500 mg oral tablet 2 tablet = 1,000 mg, By Mouth, Daily, with meals, # 30 tablet, 0 Refills, Maintenance, 09/27/17 3:27:01 PM EST, Tablet Start Date: 09/27/17 Status: Ordered Quantity: 30.0 Unit: tablet Repeat number: 1 Misc Rx Refills 0, Maintenance, C-PAP, 06/05/19 2:57:50 PM EDT, Compound Start Date: 06/05/19 Status: Ordered Repeat number: 1 Multivitamin By Mouth, Daily, 0 Refills, Maintenance, 10/15/11 9:39:36 AM EST Start Date: 10/15/11 Status: Ordered Repeat number: 1 Fargo-3 oral capsule = 2,400 mg, By Mouth, Daily, 0 Refills, Maintenance, 09/27/17 8:29:10 PM EST Start Date: 09/27/17 Status: Ordered Repeat number: 1 Protonix 40 mg oral enteric coated tablet 1 tablet = 40 mg, By Mouth, Daily, # 30 tablet, 0 Refills, Maintenance, 10/15/11 9:35:38 AM EST, ECTablet Start Date: 10/15/11 Status: Ordered Quantity: 30.0 Unit: tablet Repeat number: 1 Tylenol 325 mg oral tablet 650 mg, By Mouth, Every 6 hours, PRN, Refills 0, Maintenance, Pain , Mild Temperature, 05/02/19 11:25:26 AM EDT Start Date: 05/02/19 Status: Ordered Repeat number: 1 Vitamin B12 1000 mcg oral tablet 1 tablet = 1,000 mcg, By Mouth, Daily, # 30 tablet, 0 Refills, Maintenance, 10/15/11 9:39:58 AM EST, Tablet Start Date: 10/15/11 Status: Ordered Quantity: 30.0 Unit: tablet Repeat number: 1 Vitamin D3 1000 intl units oral capsule 1 capsule, By Mouth, Daily, # 100 capsule, 0 Refills, Maintenance, 10/15/11 9:40:14 AM EST, Capsule Start Date: 10/15/11 Status: Ordered Quantity: 100.0 Unit: capsule Repeat number: 1 Problem List Condition Confirmation Course Effective Dates Status H ealth Status Informant Cardiomyopathy Confirmed Active Chronic back pain Confirmed Active GERD (gastroesophageal reflux disease) Confirmed Active H/O polyneuropathy Confirmed Active HTN (hypertension) Confirmed Active Obesity, Class III, BMI 40-49.9 (morbid obesity) Confirmed Active Obese class I Confirmed Active SHIVAM on CPAP Confirmed Active Pernicious anemia Confirmed Active Sarcoid Confirmed Active Seborrheic dermatitis Confirmed Active Type 2 diabetes mellitus Confirmed Active Venous stasis syndrome Confirmed Active Ventricular ectopy Confirmed Active Social History Social History Type Response Smoking Status Never smoker entered on: 11/03/17 Sex Sex Representation Male (finding) Patient Care team information Care Team Personnel Name: Yumiko Bradford Position: [facility] Outreach Member Role: Lifetime Consulting Physician Name: Ca Beltran RN Position: [facility] RN Member Role: Primary Care Nurse Name: Stacey Valentin RN Position: [facility] RN Member Role: Primary Care Nurse Name: Luis Enrique Fox DO Position: [facility] Outreach Member Role: PCP Address: [address] [place], [place] [id number] [address] Telecom: Name: Ailin Ocasio RN Position: [facility] AMB Nurse Member Role: Primary Care Nurse Care Team Related Persons Name: ANGEL LUIS MERCADO Insurance Providers Guarantor name: AARON MERCADO Health Plan Information #: 2 Payer: [employer] Member Number: [id number] Policy Number: NA Group Number: NA Health Plan Information #: 1 Payer: MEDICARE PART B OUTPT Member Number: [id number] Policy Number: NA Group Number: NA
--- OUTSIDE RECORDS SUMMARY | 2024-12-07 14:23 | XMS_ITS | Clinical Summary ---
Author Organization [address] [facility] Address [address] [place] [address] Phone Care Team Providers Care Candle Extrusion Machine Operator Name Role Phone Luis Enrique Fox DO Primary Care Provider [phone] Social History Tobacco Use Types Packs/Day Years Used Date Smoking Tobacco: Never Assessed Sex and Gender Information Value Date Recorded Sex Assigned at Not on file Legal Sex Male 11:05 PM EST Gender Identity Not on file Sexual Orientation Not on file Plan of Treatment Health Maintenance Due Date Last Done Comments Diabetes: Annual GFR (Glomerular Filtration Rate) 1956 Diabetes: Annual Foot Exam 1966 Diabetes: Annual Retina Eye Exam 1966 DTaP,Tdap,and Td Vaccines (1 - Tdap) 1975 Pneumococcal Vaccine: 50+ Years (1 of 1 - PCV) 2006 Cholesterol Screening (Lipid Panel) 09/27/2022 Colorectal Cancer Screening: Colonoscopy 09/27/2022 Depression Screening 09/27/2022 Falls Risk Assessment 09/27/2022 Hepatitis C Screening 09/27/2022 Medicare Annual Wellness Visit 09/27/2022 Social Influencers of Health Screening 09/27/2022 Diabetes: Annual Urine Albumin-Creatinine Ratio (uACR) 10/10/2022 Diabetes: Blood Sugar Control Test (HGBA1C) 10/10/2022 Zoster Vaccines (2 of 2) 05/26/2024 03/31/2024 Hypertension/CHF/CAD Annual BMP Blood Test 11/06/2024 RSV Immunization Patients 60+ Years Old (1 - 1-dose 75+ series) 2031 Influenza Vaccine Completed 06/22/2024, , 07/27/2022 COVID-19 Vaccine Completed 08/03/2024, 03/2023, 01/21/2023, Additional history exists HIB Vaccines Aged Out No longer eligi ble based on patient's age to complete this topic HPV Vaccines Aged Out No longer eligi ble based on patient's age to complete this topic Hepatitis A Vaccines Aged Out No long er eligible based on patient's age to complete this topic Hepatitis B Vaccines Aged Out No long er eligible based on patient's age to complete this topic IPV Vaccines Aged Out No longer eligi ble based on patient's age to complete this topic MMR Vaccines Aged Out No longer eligi ble based on patient's age to complete this topic Meningococcal ACWY Vaccine Aged Out N o longer eligible based on patient's age to complete this topic Meningococcal B Vacine Aged Out No lo nger eligible based on patient's age to complete this topic RSV Immunization Patients Under 20 months Aged Out No longer eligible based on patient's age to complete this topic Varicella Vaccines Aged Out No longer eligible based on patient's age to complete this topic Procedures Procedure Name Priority Date/Time Associated Diagnosis Comments CBC WITH AUTO DIFFERENTIAL Routine 11/06/2024 10:27 AM EST Leg wound, left Cellulitis CBC AND DIFFERENTIAL Routine 11/06/2024 10:27 AM EST Leg wound, left Cellulitis from Last 3 Months Results * (ABNORMAL) CBC auto differential (11/06/2024 10:27 AM EST) WBC 14.7(H) 4.8 - 10.8 K/mcL LAB HEMETOLOGY METHOD 11/06/2024 11:17 AM [facility] RBC 4.40(L) 4.50 - 5.50 M/mcL LAB HEMETOLOGY METHOD 11/06/2024 11:17 AM [facility] Hemoglobin 13.6 13.5 - 17.5 g/dL LAB HEMETOLOGY METHOD 11/06/2024 11:17 AM [facility] Hematocrit 42.1 42.0 - 54.0 % LAB HEMETOLOGY METHOD 11/06/2024 11:17 AM [facility] MCV 96.1 79.0 - 98.0 FL LAB HEMETOLOGY METHOD 11/06/2024 11:17 AM [facility] MCH 31.1 27.0 - 32.0 pcg LAB HEMETOLOGY METHOD 11/06/2024 11:17 AM [facility] MCHC 32.3 32.0 - 37.0 g/dL LAB HEMETOLOGY METHOD 11/06/2024 11:17 AM [facility] RDW 12.7 11.0 - 15.0 % LAB HEMETOLOGY METHOD 11/06/2024 11:17 AM [facility] Platelets 347 130 - 400 K/mcL LAB HEMETOLOGY METHOD 11/06/2024 11:17 AM [facility] MPV 9.9 7.0 - 11.0 FL LAB HEMETOLOGY METHOD 11/06/2024 11:17 AM [facility] NRBC 0.0 <1.0 % LAB HEMETOLOGY METHOD 11/06/2024 11:17 AM [facility] NRBC Absolute 0.00 <0.10 K/mcL LAB HEMETOLOGY METHOD 11/06/2024 11:17 AM [facility] Neutrophils Relative 72.6 % LAB HEMETOLOGY METHOD 11/06/2024 11:17 AM [facility] Lymphocytes Relative 14.0 % LAB HEMETOLOGY METHOD 11/06/2024 11:17 AM [facility] Monocytes Relative 9.9 % LAB HEMETOLOGY METHOD 11/06/2024 11:17 AM [facility] Eosinophils Relative 2.2 % LAB HEMETOLOGY METHOD 11/06/2024 11:17 AM [facility] Basophils Relative 0.5 % LAB HEMETOLOGY METHOD 11/06/2024 11:17 AM [facility] Immature Granulocytes Relative 0.8 % LAB HEMETOLOGY METHOD 11/06/2024 11:17 AM [facility] Neutrophils Absolute 10.65(H) 1.50 - 7.00 K/mcL LAB HEMETOLOGY METHOD 11/06/2024 11:17 AM EST [facility] Lymphocytes Absolute 2.06 1.00 - 5.00 K/mcL LAB HEMETOLOGY METHOD 11/06/2024 11:17 AM EST [facility] Monocytes Absolute 1.45(H) 0.20 - 1.00 K/mcL LAB HEMETOLOGY METHOD 11/06/2024 11:17 AM EST [facility] Eosinophils Absolute 0.33 0.00 - 0.50 K/mcL LAB HEMETOLOGY METHOD 11/06/2024 11:17 AM EST [facility] Basophils Absolute 0.07 0.00 - 0.20 K/mcL LAB HEMETOLOGY METHOD 11/06/2024 11:17 AM [facility] Immature Granulocytes Absolute 0.12(H) 0.00 - 0.03 K/mcL LAB HEMETOLOGY METHOD 11/06/2024 11:17 AM EST [facility] Blood Venous blood specimen / Unknown Venipuncture / Unknown 11/06/2024 10:27 AM EST 11/06/2024 10:27 AM EST Shira Romero FURNACE TENDER LAB BLOOD ORDERABLES Fi nal Result [facility] [address] [place] [address], from Last 3 Months Insurance MEDICARE MEDICAID - [place] Care Teams Candle Extrusion Machine Operator Relationship Specialty Start Date End Date Luis Enrique Fox DO [address] [place] [id number] PCP - General Internal Medicine 09/21/17
--- OUTSIDE RECORDS SUMMARY | 2024-12-07 14:23 | XMS_ITS | Data Portability ---
Author Organization [place] - [facility], Allergy Address [address] [place] [id number] Assessment Encounter Date Assessment Date Assessment LastModified by Organization Details LastModified Time 11/03/2024 11/03/2024 His left tympani c membrane is thickened. He recalls recent audiometric testing which showed some sensorineural hearing loss and he would be a candidate for amplification but was not interested in pursuing it at this time. There is no infection of his ear at this time His sarcoidosis may play a role in his persistent ongoing reflux. Encouraged him to follow-up with gastroenterology His brother missed an appointment to see me due to an active shingles infection. Encouraged Madi to complete his shingles vaccine series dplosky Not available 11/03/2024 15:12:34 Plan of Treatment Reminders Order Date Submit Date Provider Last Modified By Organization Details Last Modified Time Details Appointments None record ed. Lab None record ed. Referral None record ed. Procedures None record ed. Surgeries None record ed. Imaging None record ed. Medication Orders None record ed. Patient TargetsNo targets recorded. Patient InstructionsNo instructions recorded. Reason for Referral None Reported. Problems Name Problem SNOMED Code Status Onset Date Resolution Date Notes Provider Name and Address Organization Details Recorded Time Dysphagia 74250025 Active 2016 Dysphagia , unspecifi ed; Note: Date Diagnosed : 04/02/2017 4:39 PM (R13.10) Not Available [facility] 4 02:46:16 Deviated nasal septum 714241164 Active 2015 Deviated nasal septum; Note: Date Diagnosed : 4 2:42 PM (470) ; Start Date : 4 Deviate d nasal septum; Note: Date Diagnosed : 03/12/2016 3:35 PM (J34.2) Not Available [facility] 4 02:46:12 Sarcoidos is 74088006 Active 2016 Sarcoidos is, unspecifi ed; Note: Date Diagnosed : 04/02/2017 4:40 PM (D86.9) Not Available [facility] 4 02:46:25 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; Note: Date Diagnosed : 05/05/2017 2:20 PM (D10.1) Not Available [facility] 4 02:46:21 Chronic pharyngit is 407374 Active 2016 Chronic sore throat; Note: Date Diagnosed : 04/02/2017 4:39 PM (J31.2) Not Available [facility] 4 02:46:18 Otorrhea of left ear [id number] 54221 Active 2014 Otorrhea, left ear; Note: Date Diagnosed : 5 1:46 PM (H92.12) Not Available [facility] 4 02:46:13 Acute myringiti s 488092 Active 2013 Acute myringiti s, unspecifi ed; Note: Date Diagnosed : 4 2:42 PM (384.00) Not Available [facility] 4 02:46:19 Obstructi ve sleep apnea syndrome 88780793 Active 2013 SHIVAM; Note: Date Diagnosed : 4 2:42 PM (327.23) Not Available [facility] 4 02:46:23 Allergic rhinitis 45839049 Active 2013 Rhinitis, allergic; Note: Date Diagnosed : 4 2:42 PM (477.9) Not Available [facility] 4 02:46:19 Otorrhea 79425021 Active 2013 Otorrhea; Location: left CMS Risk: moderate risk CMS Treatment : new problem (to examiner) : additiona l workup planned N ote: Date Diagnosed : 4 4:00 PM (388.60) Not Available [facility] 4 02:46:22 Hypertrop hy of nasal turbinate s 80080513 Active 2013 Turbinate hypertrop hy; Note: Date Diagnosed : 4 2:42 PM (478.0) Not Available [facility] 4 02:46:20 Neoplasm of uncertain behavior of tongue 85518738 Active 2016 Neoplasm of uncertain behavior of tongue; Note: Date Diagnosed : 04/02/2017 5:20 PM (D37.02) Not Available [facility] 4 02:46:21 Gastroeso phageal reflux disease without esophagit is 642045388 Active 2016 Gastro-es ophageal reflux disease without esophagit is; Note: Date Diagnosed : 04/02/2017 4:40 PM (K21.9) Not Available [facility] 4 02:46:20 Tympanosc lerosis of left middle ear 99859551386 068688 Active 2024 KODAK MUÑOZ MD [address] [place] [address], [place], [phone] , [facility] 5 15:11:16 Laryngoph aryngeal reflux 692774586 Active 2024 KODAK MUÑOZ MD [address] [place] [address], [place], [address] , [facility] 5 15:11:29 Problem Notes None recorded. Procedures Surgical History Date Name Laterality Status Provider Name and Address Organization Details Recorded Time arthroscopy of knee completed Penny Haq [facility] 11/03/2024 14:38:36 Imaging Results None recorded. Procedure Notes None recorded. Medical Equipment None Reported. Allergies No known drug allergies Medications Name Sig Start Date Stop Date Status Note LastModified by Organization Details LastModified Time methocarb alek 500 mg tablet active Not Available Not Available No t Available trazodone 50 mg tablet 03/03 completed Medicati on ID: [id number] Dur ation Value: 30 Brand Name: trazodon e Send Method: E-Prescr ibed Sub s Allowed: subs OK Speci al Instruct ion: TK 1 T PO QHS Medi cation nericNam e: trazodon e Not Available Not Available Not Available atorvasta tin 10 mg tablet TAKE 1 TABLET BY MOUTH EVERY DAY active Not Available Not Available No t Available betametha sone, augmented 0.05 % topical cream APPLY TOPICALL Y TO THE AFFECTED AREA DAILY APPLY THIN LAYER TO REDDENED AREA ON TOPICAL OF TO RIGHT FOOT DAILY UNTIL RESOLVED active Not Available Not Available No t Available Ciloxan 0.3 % eye drops 11/03 completed Medicati on ID: [id number] D uration Value: 14 Prescri bed By Name: Kodak Muñoz M.D. Bra nd Name: Ciloxan Send Method: E-Prescr ibed Sub s Allowed: subs OK Speci al Instruct ion: Instill 4 drops twice a day into the affected ear. Med icationG enericNa me: Ciloxan Not Available Not Available Not Available morphine ER 30 mg tablet,ex tended release 03/03 completed Medicati on ID: [id number] Dur ation Value: 30 Brand Name: morphine Send Method: E-Prescr ibed Sub s Allowed: subs OK Speci al Instruct ion: TK 1 T PO BID Medi cationGe nericNam e: morphine Not Available Not Available Not Available doxycycli ne monohydra te 100 mg tablet TAKE 1 TABLET BY MOUTH TWICE DAILY FOR 7 DAYS 11/03 completed Not Available Not Available Not Available levothyro xine 75 mcg tablet TAKE 1 TABLET BY MOUTH DAILY IN THE MORNING ON AN EMPTY STOMACH active Not Available Not Available No t Available amoxicill in 875 mg tablet TAKE 1 TABLET BY MOUTH TWICE DAILY FOR 7 DAYS 11/03 completed Not Available Not Available Not Available gabapenti n 800 mg tablet TAKE 1 TABLET BY MOUTH FOUR TIMES DAILY active Not Available Not Available No t Available amlodipin e 10 mg tablet TAKE 1 TABLET BY MOUTH EVERY DAY active Not Available Not Available No t Available levothyro xine 50 mcg tablet TAKE 1 TABLET BY MOUTH EVERY DAY IN THE MORNING ON AN EMPTY STOMACH 11/03 completed Not Available Not Available Not Available cephalexi n 500 mg capsule TAKE 1 CAPSULE BY MOUTH TWICE DAILY FOR 3 DAYS 11/03 completed Not Available Not Available Not Available pantopraz ole 40 mg tablet,de layed release TAKE 1 TABLET BY MOUTH DAILY active Not Available Not Available No t Available losartan 25 mg tablet TAKE 1 TABLET BY MOUTH DAILY active Not Available Not Available No t Available clotrimaz ole 1 % topical solution APPLY TOPICALL Y TO THE AFFECTED AREA TWICE DAILY FOR 14 DAYS 11/03 completed Not Available Not Available Not Available magnesium 500 mg (as magnesium oxide) tablet TAKE 1 TABLET BY MOUTH EVERY DAY WITH A MEAL active Not Available Not Available No t Available [place] 5 mg-325 mg tablet 1-2 tablet by mouth 11/03 completed Medicati on ID: [id number] D uration Value: 7 Prescri bed By Name: Connie Dallas nd Name: Cortez Velásquez nd Method: E-Prescr ibed Sub s Allowed: subs OK Medic ationGen ericName : [place] Not Available Not Available Not Available fluticaso ne propionat e 50 mcg/actua tion nasal spray,casa pension SHAKE LIQUID AND USE 1 SPRAY IN EACH NOSTRIL DAILY active Not Available Not Available No t Available metformin ER 500 mg tablet,ex tended release 24 hr TAKE 2 TABLETS BY MOUTH DAILY active Not Available Not Available No t Available doxycycli ne hyclate 100 mg tablet TAKE 1 TABLET BY MOUTH TWICE DAILY FOR 10 DAYS 11/03 completed Not Available Not Available Not Available ipratropi um bromide 21 mcg (0.03 %) nasal spray Inhale 2 spray into both nostrils three times a day as directed 03/03 completed Medicati on ID: [id number] B rand Name: Atrovent Send Method: E-Prescr ibed Sub s Allowed: subs OK Medic ationGen ericName : Atrovent Not Available Not Available Not Available loratadin e 10 mg tablet TAKE 1 TABLET BY MOUTH DAILY active Not Available Not Available No t Available amoxicill in 875 mg-potass ium clavulana te 125 mg tablet TAKE 1 TABLET BY MOUTH EVERY 12 HOURS FOR 7 DAYS 11/03 completed Not Available Not Available Not Available TobraDex 0.3 %-0.1 % eye drops,[facility] pension 10/08 completed Medicati on ID: [id number] Pr escribed By Name: Connie Dallas nd Name: TobraDex Send Method: E-Prescr ibed Sub s Allowed: subs OK Speci al Instruct ion: Instill 5 drops in the affect ear BID for 10 days Med icationG enericNa me: TobraDex Not Available Not Available Not Available Ciprodex 0.3 %-0.1 % ear drops,casa pension Instill 4 drop twice a day as directed 11/03 completed Medicati on ID: [id number] D uration Value: 7 Prescri bed By Name: Kodak Muñoz M.D. Bra nd Name: Ciprodex Send Method: E-Prescr ibed Sub s Allowed: subs OK Medic ationGen ericName : Ciprodex Not Available Not Available Not Available duloxetin e 60 mg capsule,d elayed release TAKE 1 CAPSULE BY MOUTH DAILY active Not Available Not Available No t Available eszopiclo ne 3 mg tablet TAKE 1 TABLET BY MOUTH EVERY NIGHT AT BEDTIME NEEDED active Not Available Not Available No t Available Flovent Diskus 50 mcg/actua tion powder for inhalatio n 03/03 completed Medicati on ID: [id number] Br and Name: Flonase Send Method: E-Prescr ibed Sub s Allowed: subs OK Speci al Instruct ion: 2 spray each nostril BID Medi cationGe nericNam e: Flonase Not Available Not Available Not Available oxycodone 10 mg tablet TAKE 1 TABLET BY MOUTH THREE TIMES DAILY NEEDED FOR PAIN active Not Available Not Available No t Available diclofena c 1 % topical gel active Not Available Not Available Not Available Vitals None Recorded Social History None recorded. Functional Status None recorded. Mental Status None recorded. Family History Nothing Reported. Medical History Condition Response Arthritis Y Hypertension Y Asthma Y Past Encounters Encounter ID Performer Location Encounter Start Date Encounter Closed Date Diagnosis/Indication Diagnosis SNOMED-CT Code Diagnosis ICD10 Code Diagnosis Note [id number] KODAK MUÑOZ MD [facility] [address] [place] [address] 11/03/2024 14:21:58 11/03/2024 15:13:09 Tympanosclerosis of left middle ear [id number] 8976862 H74.02 Sarcoidosis 99007738 D86 .9 Laryngopha ryngeal reflux 580765009 K21.9 Health Concerns Section Related Observation LastModified by Organization Detai ls LastModified Time None Recorded Concern Status LastModified by Organization Details LastModified Time None Recorded Advance Directives Directive None Recorded Payers Encounter Date Sequence Insurance Name Policy Number Policy Rosa Covered Member ID Rosa Member ID Guarantor Name 11/03/2024 2 [place] [facility] Madi Montgomery [id number] Madi Montgomery 11/03/2024 1 [place] B[place] [employer] Madi Montgomery [id number] Madi Montgomery Notes Date Note Type Note Provider Name and Address Organization Details Recorded Time 11/03/2024 text/html left earURI Dequan leon, then sneezed and felt pop in left earno otorrheagenerally decreased hearing on lefttreated with PO and topical abx reflux - on pantoprazole, still feels breakthrough reflux still 2017 diagnosed sarcoidosis of the tongue basealso found in lungs around KODAK MUÑOZ MD [address] [place] [address], [phone], [facility] - [facility] 11/03/2024 15:12:45
[2024-12-07 14:28] VITALS: BP 129/66; PULSE 93; O2SAT 97; BMI 34.6
== END 2024-12-07 14:44 | disposition home or self-care (01) ==
PROVIDERS: PCP Internal Medicine; Visit Provider Registered Nurse Emergency
DX: M47.22 Other spondylosis with radiculopathy, cervical region (principal); M79.18 Myalgia, other site; M17.0 Bilateral primary osteoarthritis of knee; Z79.891 Long term (current) use of opiate analgesic; M19.011 Primary osteoarthritis, right shoulder; M16.12 Unilateral primary osteoarthritis, left hip
CPT/HCPCS: 99214; G2211

== ENCOUNTER → 2024-12-07 14:21 | Outpatient (BNVA) | payer MEDICARE, MEDICAID, SELFPAY | PROVIDERS: PCP Internal Medicine; Visit Provider Registered Nurse Emergency | DX: Z51.81 Encounter for therapeutic drug level monitoring (principal); F11.20 Opioid dependence, uncomplicated; M47.22 Other spondylosis with radiculopathy, cervical region; M79.18 Myalgia, other site; M17.0 Bilateral primary osteoarthritis of knee; M19.011 Primary osteoarthritis, right shoulder; M16.12 Unilateral primary osteoarthritis, left hip | CPT/HCPCS: 99212 ==

== ENCOUNTER 2025-01-04 13:51 | Outpatient (AMB) | payer MEDICARE, MEDICAID, SELFPAY ==
--- NOTE | 2025-01-04 13:54 | A.OFFVIS_ITS ---
Vital Signs 01/04/25 14:03 Height 5 ft 10 in Weight 244 lb 6 oz BMI 35.1 BP 143/72 H Blood Pressure Location Rt brachial Position Sitting Pulse 91 Pulse Source Pulse Oximeter Pulse Oximetry (%) 97 Oxygen Delivery Method Room Air Intake Visit Reasons: Pill Count Intake Note: Madi comes in today for a pill count to oxycodone, patient should have 63 tablets and presents with 69 tablets which he last took today 01/04/25 at 11am. 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 Patient is supposed to have #63 pills, in his possession has #67 pills. This demonstrates a responsible attitude in regards to the medication regimen. Patient continues to report reasonable pain relief on his oxycodone 10 mg TID prn with no noted side effects. Denies any constipation, nausea, sedation, dizziness, or urinary retention. He states he has an increased ability to perform activities of daily living, interact socially and be more functional. Pain is rated at 6/10 today. Prior visit with Dr Turner: h/o neck pain low back pain as well as right shoulder and bilateral knee pain, which have been present for many years.?the neck pain starts midline and radiates to bilateral shoulders, with associated numbness down the entire left arm and moderate pain from the shoulder to the elbow.? He denies any significant weakness of bilateral upper extremities.? In the past he was under the care of Dr. Diaz and managed with morphine 30 mg twice a day as well as multiple injections and RFA for the lumbar spine.? Most recently, he has been seen at [facility].? They have treated him with injections, the last being a few months ago with a left-sided neck injection.? He reports significant pain relief for the 1st month and then slowly his pain returns by the end of the 2nd month.? He reports seeing a neurosurgeon in the past and was told he was not a surgical candidate. He also reports trialing buprenorphine in the past with Dr. Diaz, which he states had negative effect on his motor function.? He has tried and failed physical therapy multiple times.? In the past he had good relief with chiropractic manipulation but has not done this for many year.? For quite some time he was in our office on chronic opioid program,?He was suspended in our office from opioid program because he had a pill count which was 20 pills short.? He was suspended for 6 months because he was low risk for opioid addiction.? If he will be found to have in discrepancies with his pill count again his suspension now will before the full year. [facility] Medical History Osteomyelitis of foot Hyponatremia Hypertension Amputation of toe of right foot Diabetic infection of right foot Diabetes mellitus type 2, insulin dependent Chronic HFrEF (heart failure with reduced ejection fraction) Spondylosis of cervical spine with radiculopathy Myofascial pain Osteoarthritis of knees, bilateral Osteoarthritis of right shoulder Cervical spinal stenosis Arthritis of left hip Review of Systems Const All systems reviewed & are unremarkable except as noted in HPI and below Physical Exam General: Appears afebrile. Alert and oriented. Mood and affect appropriate. Follows and participates in conversation appropriately. Respiratory effort is unlabored. No cough. Able to transition from sit to stand unassisted. Ambulates with bilaterally normal heel strike and toe off. Wears diabetic customized shoes bilaterally. Psych Appearance: grossly normal Mental Status: mental status grossly normal Speech and movement: Normal speech and movement present Affect: normal affect Attitude: cooperative Thought process: Normal thought process present Thought content: Normal thought content present, suicidality (none), no hallucinations and No Depressive thoughts present Insight: Good insight present (Psych) Results Reviewed Results Reviewed: No imaging reports are available for review today. Assessment & Plan Assessment & Plan (1) Spondylosis of cervical spine with radiculopathy: Code(s): M47.22 - Other spondylosis with radiculopathy, cervical region Category: Medical (2) Myofascial pain: Code(s): M79.18 - Myalgia, other site Category: Medical (3) Osteoarthritis of knees, bilateral: Code(s): M17.0 - Bilateral primary osteoarthritis of knee Category: Medical (4) Osteoarthritis of right shoulder: Code(s): M19.011 - Primary osteoarthritis, right shoulder Category: Medical (5) Arthritis of left hip: Code(s): M16.12 - Unilateral primary osteoarthritis, left hip Category: Medical Plan [place] was reviewed and without concerns. No obvious signs of diversion, abuse or misuse of the opioid medications. Prescription for oxycodone 10mg po tid prn sent with advanced date of 01/26/25. Narcan refill sent today. Continue methocarbamol 500 mg p.o. twice daily as needed. Patient advised on cautions for use All questions and concerns have been answered and patient agrees with the plan. Follow-up in the office in 1 month, sooner if needed. Note: He was suspended from the opioid program previously because he was 20 pills short. His risk was mild and he was suspended for 6 month. If there is a second violation his suspension will be for a full year. Medications: Refilled naloxone 4 mg/actuation (Narcan) spray 1 dose into ONE nostril; alternate nostrils w each dose until help arrives 4 mg intranasal Q3M PRN 2 ea 0RF opioid overdose oxycodone Partial Fill upon patient request. 10 mg PO TID 30 days PRN 90 tabs 0RF pain M17.0 - Bilateral primary osteoarthritis of knee, M19.011 - Primary osteoarthritis, right shoulder, M48.02 - Spinal stenosis, cervical region, M79.18 - Myalgia, other site Coding Level of Care Code Est Pt Level 4 (44827) Complex EM visit Add On G2211 Diagnoses Spondylosis of cervical spine with radiculopathy M47.22 Myofascial pain M79.18 Osteoarthritis of knees, bilateral M17.0 Osteoarthritis of right shoulder M19.011 Arthritis of left hip M16.12
[2025-01-04 14:03] VITALS: BP 143/72; PULSE 91; O2SAT 97; BMI 35.1
--- OUTSIDE RECORDS SUMMARY | 2025-01-04 17:34 | XMS_ITS | Continuity of Care Document ---
Author Organization [facility] Address [address] [place] [address]- Care Team Providers Care Lamp Shade Joiner Name Role Phone Luis Enrique Fox DO [id number] Date(s): 12/05/24 - 12/12/24 [facility] [address] [place], [place] [address] Attending Physician: Ita Dean MD Admitting Physician: Ita Dean MD Referring Physician: Luis Enrique Fox DO Encounter Type: Office Visit Allergies, Adverse Reactions, Alerts No Known Allergies [...] Refills, Maintenance, 07/27/23 3:16:00 PM EDT, Tablet, [facility] #[id number], this is a reduced dose, 178, cm, [...] PM EST, 12/05/24 3:36:00 PM EST, Tablet, [facility] #[id number], Partial fill upon patient request ifthe prescription [...] 2:40:00 PM EST, Route to Pharmacy Electronically, [facility] #[id number], 178, cm, 06/19/24 14:55:00 EDT, Height, 105.8, [...] Date: 10/15/11 Status: Ordered Repeat number: 1 [place]-3 oral capsule = 2,400 mg, By Mouth, [...] Temperature, 05/02/19 11:25:26 AM EDT Start Date: 7/9/19 Status: Ordered Repeat number: 1 Vitamin B12 [...] syndrome Confirmed Active Ventricular ectopy Confirmed Active Vital Signs Most recent to oldest [Reference Range]: 1 Height 178 cm (12/05/24 3:08 PM) Weight 106.81 kg (12/05/24 3:08 PM) Oxygen Saturation [94-100 %] 96 % (12/05/24 3:08 PM) Pulse Rate [55-90 bpm] 93 bpm *H* (12/05/24 3:08 PM) Body Mass Index [18.5-24.99 kg/m2] 33.71 kg/m2 *>HHI* (12/05/24 3:08 PM) Blood Pressure [90-138/55-84 mm Hg] 114/ 50mm Hg (12/05/24 3:08 PM) Mode of Delivery (Oxygen) Room air (12/05/24 3:08 PM) Blood pressure sites Arm, left (12/05/24 3:08 PM) Weight Obtained Via Patient/family state d (12/05/24 3:08 PM) Social History Social History Type Response Smoking Status Never smoker entered on: 11/03/17 Sex Sex Representation Male (finding) Patient Care team information Care Team Personnel Name: Yumiko Bradford Position: [facility] Outreach Member Role: Lifetime Consulting Physician Name: Ca Beltran RN Position: [facility] RN Member Role: Primary Care Nurse Name: Stacey Valentin RN Position: [facility] RN Member Role: Primary Care Nurse Name: Luis Enrique Fox DO Position: [facility] Outreach Member Role: PCP Address: [address] [place], [place] [id number] [place], [place] [address] Telecom: Name: Ailin Ocasio RN Position: [facility] Nurse Member Role: Primary Care Nurse Care Team Related Persons Name: ANGEL LUIS MERCADO Insurance Providers Guarantor name: AARON MERCADO Health Plan Information #: 1 Payer: MEDICARE PART B OUTPT Member Number: [id number] Policy Number: NA Group Number: NA Health Plan Information #: 2 Payer: [facility] Member Number: [id number] Policy Number: NA Group Number: NA
--- OUTSIDE RECORDS SUMMARY | 2025-01-04 17:34 | XMS_ITS | Continuity of Care Document ---
Author Organization [facility] ter Address [address] [place] [id number]- Care Team Providers Care New Car Inspector Name Role Phone Luis Enrique Fox DO Primary Care Physician [id number] Date(s): 12/18/24 - 12/18/[address] [address] Discharge Disposition: A-D/C Home Attending Physician: Ita Dean MD Admitting Physician: Ita Dean MD Referring Physician: Ita Dean MD Encounter Type: Disch Daystay Allergies, Adverse Reactions, Alerts No Known Allergies Immunizations Given and Recorded Vaccine Date Status Refusal Reason SARS-CoV-2 (COVID-19) mRNA-1273 vaccine 11/07/21 R ecorded SARS-CoV-2 (COVID-19) mRNA-1273 vaccine 02/21/21 R ecorded SARS-CoV-2 (COVID-19) mRNA-1273 vaccine 01/27/21 R ecorded Medications amLODIPine 10 mg oral tablet 1 tablet = 10 mg, By Mouth, Daily in AM, 0 Refills, Maintenance, 02/21/24 9:29:00 AM EDT, Partial fill upon patient request if the prescription is for a schedule II opioid drug. Start Date: 02/21/24 Status: Ordered Repeat number: 1 atorvastatin 10 mg oral tablet 1 tablet = 10 mg, By Mouth, Daily in AM, 0 Refills, Maintenance, 07/24/20 11:04:00 AM EDT Start Date: 07/24/20 Status: Ordered Repeat number: 1 Bactrim DS 800 mg-160 mg oral tablet 1 tablet, By Mouth, 2 times a day, for 14 days, # 28 tablet, 0 Refills, Acute 12/19/24 3:36:00 PM EST, 12/05/24 3:36:00 PM EST, Tablet, [facility] #[id number], Partial fill upon patient request ifthe prescription [...] 1 capsule = 60 mg, By Mouth, Daily before lunch, # 30 capsule, 0 Refills, Maintenance, 09/27/17 [...] 2:40:00 PM EST, Route to Pharmacy Electronically, [facility] #[id number], 178, cm, 06/19/24 14:55:00 EDT, Height, 105.8, kg, 05/12/24 23:15:00 EDT, Dry Weight Start Date: 10/24/24 Status: Ordered Quantity: 30.0 Unit: tablet Repeat number: 7 Lunesta 3 mg oral tablet 1 tablet = 3 mg, By Mouth, Daily at bedtime, PRN for insomnia, 0 Refills, Maintenance, 10/15/11 9:35:59 AM EST, Tablet Start Date: 10/15/11 Status: Ordered Repeat number: 1 metFORMIN 500 mg oral tablet 2 tablet = 1,000 mg, By Mouth, Daily, with meals, # 30 tablet, 0 Refills, Maintenance, 09/27/17 3:27:01 PM EST, Tablet Start Date: 09/27/17 Status: Ordered Quantity: 30.0 Unit: tablet Repeat number: 1 Misc Rx Refills 0, Maintenance, C-PAP, 06/05/19 2:57:50 PM EDT, Compound Start Date: 06/05/19 Status: Ordered Repeat number: 1 oxyCODONE 10 mg oral tablet 1 tablet = 10 mg, By Mouth, 3 times a day, 0 Refills, Maintenance, 12/18/24 10:34:00 AM EST, Partialfill upon patient request if the prescription is for a schedule II opioid drug. Start Date: 12/18/24 Status: Ordered Repeat number: 1 Protonix 40 mg oral enteric coated tablet 1 tablet = 40 mg, By Mouth, Daily in AM, # 30 tablet, 0 Refills, Maintenance, 10/15/11 9:35:38 AM EST, EC Tablet Start Date: 10/15/11 Status: Ordered Quantity: 30.0 Unit: tablet Repeat number: 1 Problem List Condition Confirmation [...] Most recent to oldest [Reference Range]: 1 2 3 Height 177.80 cm (12/18/24 10:50 AM) 177.80 cm (12/14/24 3:31 PM) Weight 105.6 kg (12/18/24 10:50 AM) 109.55 kg (12/14/24 3:31 PM) Oxygen Saturation [94-100 %] 94 % (12/18/24 4:45 PM) 94 % (12/18/24 4:30 PM) 96 % (12/18/24 4:15 PM) Pulse Rate [55-90 bpm] 91 bpm *H* (12/18/24 10:50 AM) Body Mass Index [18.5-24.99 kg/m2] 33.4 kg/m2 *>HHI* (12/18/24 10:50 AM) 34.65 kg/m2 *>HHI* (12/14/24 3:31 PM) Blood Pressure [90-138/55-84 mm Hg] 116/88mm Hg (12/18/24 5:00 PM) 122/77mm Hg (12/18/24 4:45 PM) 125/70mm Hg (12/18/24 4:30 PM) Respiratory Rate [16-30 br/min] 14 br/min *L* (12/18/24 4:45 PM) 13 br/min *L* (12/18/24 4:30 PM) 14 br/min *L* (12/18/24 4:15 PM) Temperature [96.8-100.4 DegF] 98.3 DegF (12/18/24 5:00 PM) 97.9 DegF (12/18/24 2:00 PM) 98.8 DegF (12/18/24 10:50 AM) Liters per Minute 4 L/min (12/18/24 2:30 PM) Mode of Delivery (Oxygen) Nasal cannula (12/18/24 2:30 PM) Room air (12/18/24 10:50 AM) Blood pressure sites Arm, right (12/18/24 10:50 AM) Temperature Route Temporal (12/18/24 5:00 PM) Temporal (12/18/24 2:00 PM) Temporal (12/18/24 10:50 AM) Dry Weight 105.6 kg (12/18/24 10:50 AM) 109.55 kg (12/14/24 3:31 PM) Weight Obtained Via Standing scale (12/18/24 10:50 AM) Patient/family stated (12/14/24 3:31 PM) Dry Weight Obtained Via Standing scale (12/18/24 10:50 AM) Patient/family stated (12/14/24 3:31 PM) Social History Social History Type Response Smoking Status Never smoker entered on: 11/03/17 Sex Sex Representation Male (finding) Hospital Progress note * Dianne CHAUHAN, Ita Carlin: PERFORM Event Display: Progress Note Hospital Authored Date: [id number] Patient: ??AARON MERCADO ? Age:??69 Years?Sex:??Male?:??1955?? 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 ?? Heel debridement was done,??superficial at this point,??excellent granulation tissue at the base. ?? Wound care should continue with??soap and water??every single day,??continue to keep the foot cleanand dry,??subsequent to this, apply bacitracin and a dry gauze over the top of the??heel ulcer on the right foot. ?? When I get to the office tomorrow, we can set up VNA to the patient to have appropriate supplies??going forward, but??this is healing up??well. ? --- Yoly Dean MD PhD [facility] Vascular Surgery Attending [phone] Note * Brittnee DIAZ, Lyudmila: PERFORM Event Display: Patient Education/Instruction Authored Date: [id number] Inpatient Adult Discharge Instructions. [place] [id number] Name: AARON MERCADO : 1955?? Visit: 12/18/2024 09:53?? Current Date: 12/18/2024 17:25 ?? Account: [id number]?? Inpatient Adult Discharge Instructions We would like to thank you for allowing us to assist you with your healthcare needs. The following includes patient education materials and information regarding your injury/illness. Our entire staffstrives to provide an excellent experience for our patients and their families. PLEASE ENSURE YOU FOLLOW-UP PER THE INSTRUCTIONS BELOW! ?? YOUR OPINION IS IMPORTANT TO US! Please complete the survey you may receive by mail or email. Your feedback will be used to make improvements to the healthcare experiences of our patients and their families. Surveys are administered by [employer] ?? If further treatment with your primary care physician or another doctor is recommended, it is important for you to keep the appointment. Call your primary care physician or return to the Emergency Department immediately if your condition worsens, fails to improve, or new symptoms develop. If you need to find a doctor, you can call [facility] E96 for a referral at [phone] or toll free at [phone] or log in to [email or web address] ?? [facility], in keeping with [facility] guidance, no longer requires face masks for staff, patientsor visitors in most situations. Similiar to time spent indoors at other locations, there is the chance that you were exposed to repiratory viruses during your time with us (such as flu or COVID-19). If you develop symptoms concerning for a viral respiratory infection, please seek testing (and treatment if indicated) from your medical provider or home test kit. ?? You can view and manage your care through the patient portal or by using a health care [place] of your choosing. [facility] is a website that allows you to securely view your medical information including your hospital discharge summary, office visit summaries, medications and follow-up visits. You can also request appointments, renew medications, and request access to your medical information using a health care [place] of your choosing, or just ask a question. You can enroll at [email or web address] or register during your next office visit. You have been discharged from [facility], Patient Care Unit: PAN[facility]??. If you have any questions regarding these instructions, including results of studies pending, afteryou leave, please call us and we will be happy to assist you 17/05. [facility] Nursing Unit Direct Phone Number, for 17/05 contact and results of studies pending [facility] [address] [place] [address] Your Care Team Attending Physician Ita Dean MD?? Consulting Providers Ita Dean MD?? Discharging Providers Priscilla Lamar NP Tests Performed Below is a partial list of the tests performed during your hospitalization. You may have had other tests and procedures not included in this list. Please discuss all test results with your provider. GLUCOSE POC Glucose POC?? Primary Care Provider Luis Enrique Fox DO? Advance Directive Health Care Proxy on File Yes - Health Care Proxy Discharge Vitals Temperature: 98.3 DegF Height: 177.8 cm Pulse Rate:??91 bpm??High Weight: 105.6 kg Respiratory Rate:??14 br/min??Low Body Mass Index:??33.4 kg/m2??Critical Systolic Blood Pressure: 116 mm Hg Body surface area: 2.28 Diastolic Blood Pressure:??88 mm Hg??High ?? Oxygen Saturation: 94 % ?? Studies Pending All studies ordered during this hospital stay have been completed unless listed below. Please discuss all pending results with your provider listed above in these instructions. ?? No incomplete studies found?? What to do next Instructions From Your Doctor ?? Orders?? , ??after 4hours bedrest, if no issues with groin access site, ??12/18/24 17:30:00 EST?? Prescriptions??, ??12/18/24 14:47:00 EST?? Scheduled Follow-Up Appointments Wednesday 8:40 AM EDT ?? With: Ita Dean MD Where: [facility] [address] [facility] [place] [address]- Status: Pending You Need to Schedule the Following Appointments Follow Up with??Ita Dean When:??01/05/2025 08:40 AM EDT Discharge Medications AARON MERCADO :1955 Visit Date:12/18/2024 Medications: Please continue your medications until treatment is completed or stopped by your provider. Medications not listed below should be discontinued. Discuss any questions related to medications with your provider. What How Much When Instructions Next Dose Changed Amlodipine (amLODIPine 10 mg oral tablet) 1 tab(s) Oral Daily in the morning usual schedule Changed Oxycodone (oxyCODONE 10 mg oral tablet) 1 tab(s) Oral 3 times a day usual schedule Unchanged Atorvastatin (atorvastatin 10 mg oral tablet) 1 tab(s) Oral Daily in the morning usual schedule Unchanged Duloxetine (Cymbalta 60 mg oral enteric coated capsule) 1 capsule Oral Daily before lunch usual schedule Unchanged Eszopiclone (Lunesta 3 mg oral tablet) 1 tab(s) Oral Daily at Bedtime as needed for for insomnia usual schedule Unchanged Gabapentin (gabapentin 800 mg oral tablet) 1 tab(s) Oral 4 times a day usual schedule Unchanged Losartan (losartan 25 mg oral tablet) 1 tab(s) Oral Daily usual schedule Unchanged Metformin (metFORMIN 500 mg oral tablet) 2 tab(s) Oral Daily with meals ?? usual schedule Unchanged Miscellaneous Rx (Levothyroxine) 50 Microgram Oral Daily usual schedule Unchanged Miscellaneous Rx (Misc Rx) C-PAP ?? Unchanged Pantoprazole (Protonix 40 mg oral enteric coated tablet) 1 tab(s) Oral Daily in the morning usual schedule Unchanged Sulfamethoxazole/ Trimethoprim (Bactrim DS 800 mg-160 mg oral tablet) 1 tab(s) Oral Twice a day Duration: 14 Days usual schedule ?? What How Much When Comments Stop Taking Acetaminophen (Tylenol 325 mg oral tablet) 650 Milligram Oral Every 6 hours as needed for Pain , Mild Temperature Stop Taking Cholecalciferol (Vitamin D3 1000 intl units oral capsule) 1 capsule Oral Daily Stop Taking Cyanocobalamin (Vitamin B12 1000 mcg oral tablet) 1 tab(s) Oral Daily Stop Taking Magnesium Oxide (magnesium oxide base 500 mg oral tablet) Stop Taking Multivitamin Oral Daily Stop Taking Butler-3 Polyunsaturated Fatty Acids (Butler-3 oral capsule) 2,400 Milligram Oral Daily Prescription Given During Visit No new medications prescribed at time of discharge.?? Laboratory Results Below is a partial list of the most recent Laboratory test results done prior to this discharge. You may have had other tests and procedures not included in this list. Please discuss all test resultswith your provider. GLUCOSE POC (12/18/2024) ???Glucose, POC - 145 mg/dL You will be contacted within 72 hours with your results. Allergies (NKA means No Known Allergies) NKA Problems Active Problems??(14) Cardiomyopathy?? Chronic back pain?? GERD (gastroesophageal reflux disease)?? H/O polyneuropathy?? HTN (hypertension)?? Obese class I?? Obesity, Class III, BMI 40-49.9 (morbid obesity)?? SHIVAM on CPAP?? Pernicious anemia?? Sarcoid?? Seborrheic dermatitis?? Type 2 diabetes mellitus?? Venous stasis syndrome?? Ventricular ectopy?? Education Materials Below is the list of Educational Leaflet Providered with your Discharge Instructions. [employer] Patient Education - M-NSx DC Instructions Angio?? [employer] Patient Education - M-Groin I Discharge Instructions?? [employer] Patient Education - Surgery Medical Daystay Surgical Overnight Discharge Instructions?? Valuables and Belongings I fully understand and agree that [facility] accepts no responsibility for all my personal property including clothing, toilet articles, radios, jewelry, dentures, hearing aids, rings, money, or any other property that is in my possession or is brought to me after admission. I understand certain valuables may be placed in a hospital safe for a short period of time. I understand that the hospital is not liable for loss or damage due to accident, fire, or other natural occurrence while said property is in the safe. I accept full responsibility for any personal property that I keep with me, and will not hold the hospital responsible in case of loss or disappearance. I acknowledge that i have been encouraged to send valuables and belongings home. ?? Review of Valuable and Belonging List: With patient Disposition of Belongings: Valuables Locked Possessions released to: to patient belongings closet Date for Pt to Sign Valuables/Belongings: 12/18/24 10:42:00 ?? Other Discharge Information ? Pulmonary Rehab Status?? Pulmonary Rehab Discharge Status?? Respiratory Rate:??14 br/min??Low ? Common Emergency Awareness Tips IS IT A STROKE? Act FAST and Check for these signs: FACE Does the face look uneven? ARM Does one arm drift down? SPEECH Does their speech sound strange? TIME Call at any sign of stroke ?? Heart Attack Signs Chest discomfort: Most heart attacks involve discomfort in the center of the chest and lasts more than a few minutes, or goes away and comes back. It can feel like uncomfortable pressure, squeezing, fullness or pain. Discomfort in upper body: Symptoms can include pain or discomfort in one or both arms, back, neck, jaw or stomach. Shortness of breath: With or without discomfort. Other signs: Breaking out in a cold sweat, nausea, or lightheaded. Remember, MINUTES DO MATTER. If you experience any of these heart attack warning signs, call to get immediate medical attention! ?? Smoking can increase your chances of developing chronic health problems and can cause harmful effects to other family members in your house. If you smoke, you are strongly encouraged to quit. Please call [facility] Link at [phone] or [phone]) or log in to [email or web address] for referrals to smoking cessation programs. ?? 870 Suicide & Crisis Lifeline is available 17/05 if you or someone you know needs to find a reason to keep living. By calling 995 you'll be connected to a skilled, trained counselor at a crisis center in your area. INPATIENT DISCHARGE INSTRUCTIONS SIGNATURE PAGE AARON MERCADO Location:[facility] Registration Date and Time:12/18/2024 09:53 EST Primary Care Physician: Luis Enrique Fox DO, Attending Physician: Dianne CHAUHAN, [facility], I AARON MERCADO, have received the above patient education materials/instructions and have verbalized understanding. If ambulance or transport services are being used I further acknowledge being givena choice of service. ?? If you need to contact me, please call me at this number: . 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 184 Diagnostic Angiogram Discharge Instructions ?? Call your doctor if you have or experience any of the following: ??? Bleeding from the puncture site, temperature of 101 or more, redness, drainage, swelling or increased discomfort at the puncture site. ??? Change in breathing, chest pain, dizziness, fainting, significant worsening of palpitations, nausea, vomiting, or change in appetite. ??? Side-effects from the medications (rash, cough, dizziness, leg cramps, nausea or blurred vision). ??? New redness or irritation on your back which can result (rarely) from exposure to radiation during your procedure. ?? Call 911 or go to your closest emergency room if you develop any of the following: ??? New sudden onset of weakness, numbness, loss or changes in your vision, slurred or garbled speech, or any concern for a stroke or mini-stroke. ??? Numbness, tingling, loss of sensation, and for coolness to your arms or legs. ??? Chest pain or discomfort that is not relieved with rest. ?? If profuse bleeding (does not stop in 30 minutes) occurs hold pressure to the site and CALL [address] [facility] THE [facility]ITAL. ?? Follow Up Instructions: ??? You should have a follow up appointment with your doctor within 2-8 days of the procedure. ??? If you do not have an appointment already scheduled, call [phone] to make an appointment when you get home. ?? Post-Procedure Instructions: ??? No heavy lifting over 10 pounds (gallon of milk) for 1 week following the procedure, gradually increase activities over the next 5 days. ??? You may feel like restingmore after your procedure. Slowly start to do more each day. Rest when you feel it is needed. ??? No driving or operating heavy machinery the day of discharge. ??? Make sure to look at your proceduresite every day until completely healed. You may see bruising at the puncture site and that is common after the procedure. ??? You may shower when you go home but no tub baths, hot tubs, soaking of the puncture site or swimming for 1 week. ??? Keep the site covered with a band-aid for 48 hours. Apply clean band-aid after showering for the next 2 days. ??? If you have mild pain at the incision siteyou may take Tylenol or ibuprofen or Aleve as needed. DO NOT TAKE combinations of the above. ??? A follow-up phone call by a nurse will be made within 72 hours of your procedure. ??? At the earliest you can return to work 5 days after your procedure, the above restrictions may apply (e.g. lifting).??? You may resume sexual activity 5 days after procedure; avoid bending the hip on the side of thegroin puncture excessively and any strenuous positions. ??? You should resume all your regular medications as scheduled before the procedure unless a specific change was made by your doctor or their team during or after the procedure. ??? If you are taking Aspirin, Plavix or other antiplatelet medic ation you MUST not miss a dose. ??? If you were taking Coumadin before the procedure you should have specific instructions in your possession. You should resume Coumadin on day 1 after the procedure.Adhere to the prescribed lovenox injections until you follow-up with your Coumadin clinic to check your INR. You should follow-up with your Coumadin clinic 4-6 days after your procedure. ?? * Mary Salinas RN: PERFORM Event Display: Patient Education Leaflets Authored Date: [id number] M-Groin I Discharge Instructions ?? 179 Groin Discharge Instructions No heavy lifting over 10 pounds (for example: gallon of milk) 1 week following the procedure; gradually increase normal activity over the next 5 days. Avoid straining/pushing when moving bowels You may feel like resting more after your procedure. Slowly start to do more each day. Rest when you feel it is needed. Make sure to look at your procedure site every day until it is completely healed. You may see bruising at the puncture site and that is common after the procedure. You may shower the day after your procedure. Remove the band aid before showering. Wash the area gently with soap and water. Leave open to air. Do not take tub baths, hot tubs, soaking of the puncture site or swimming for 1 week. Do not put any creams, powders or lotions on your puncture site You may resume sexual activity the day after your procedure; avoid bending the hip on ?? the side of the groin puncture excessively and any strenuous positions for 1 week. Call your doctor if your procedure site develops any of the following: ??? New onset severe pain ??? New onset lump or swelling ??? Bleeding that does not stop with lightpressure ? * Mary Salinas RN: PERFORM Event Display: Patient Education Leaflets Authored Date: [id number] Surgery Medical Daystay Surgical Overnight Discharge Instructions ?? 295 Medical Daystay/Surgical Overnight Discharge Instructions ? Since your coordination and judgment may be altered by medication and/or anesthesia, a responsible adult must drive you home from the hospital. ? If you have received medication for pain or sedation while under our care, you should not drive, operate machinery, drink alcohol, or sign any legal documents for 24 hours.?? You should have someone with you at home tonight. ? Remain at home the day of discharge.?? You may be up and about unless otherwise instructed by your physician. ? You may resume your daily prescription medication schedule.?? Any depressant medication should be avoided for 24 hours unless otherwise instructed by your surgeon or anesthesiologist. ? Call your physician for a follow-up appointment.? If you experience unusual or severe pain not relied by your pain medication, excessive bleedingor drainage, persistent nausea and vomiting, excessive swelling or redness, foul odor from incisionsite or fever over 100.6F, you need to call your physician. ? A follow-up phone call by a nurse will be made the day after your procedure.?? If you have stayed with us over night, you will not be receiving a follow-up phone call. ? Nausea and vomiting are a common side effect of prescription pain medication.?? We recommend that pills are not taken on an empty stomach.?? While taking any prescription pain medication you should not drive or drink alcohol. ? Patient Care team information Care Team Personnel Name: Yumiko Bradford Position: S Outreach Member Role: Lifetime Consulting Physician Name: Ca Beltran RN Position: S RN Member Role: Primary Care Nurse Name: Stacey Valentin RN Position: S RN Member Role: Primary Care Nurse Name: Luis Enrique Fox DO Position: S Outreach Member Role: PCP Address: [address] [place] [address] [address] [place], [place] [address] Telecom: Name: Amarjit DIAZ, Ailin Position: [facility] Nurse Member Role: Primary Care Nurse Care Team Related Persons Name: ANGEL LUIS MERCADO Insurance Providers Guarantor name: AARON MERCADO Health Plan Information #: 1 Payer: MEDICARE PART B OUTPT Member Number: [id number] Policy Number: NA Group Number: NA Health Plan Information #: 2 Payer: [facility] Member Number: [id number] Policy Number: NA Group Number: NA
--- OUTSIDE RECORDS SUMMARY | 2025-01-04 17:34 | XMS_ITS ---
Author Name [facility] Organization Unknown Encounters Encounter Type Encounter Reason Primary Diagnosis Location Date Ambulatory [facility] [place] 04/25/2024 Ambulatory [facility] [place] 04/25/2024
--- OUTSIDE RECORDS SUMMARY | 2025-01-04 17:34 | XMS_ITS | Data Portability ---
Author Organization [place] [facility], Allergy Address [address] [place] [id number] Assessment Encounter Date Assessment Date Assessment LastModified [...] and Address Organization Details Recorded Time Dysphagia [id number] Active 2016 Dysphagia , unspecifi ed; Note: Date Diagnosed : 04/02/2017 4:39 PM (R13.10) Not Available [facility] 4 02:46:16 Deviated nasal septum 873268917 Active 2015 Deviated nasal septum; Note: Date Diagnosed : 4 2:42 PM (470) ; Start Date : 4 Deviate d nasal septum; Note: Date Diagnosed : 03/12/2016 3:35 PM (J34.2) Not Available [facility] 4 02:46:12 Sarcoidos is 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 Active 2016 Sarcoidos is, unspecifi ed; Note: Date Diagnosed : 04/02/2017 4:40 PM (D86.9) Not Available [facility] 4 02:46:25 Benign neoplasm of tongue 48476803 Active 2016 Benign neoplasm of tongue; Note: Date Diagnosed : 05/05/2017 2:20 PM (D10.1) Not Available [facility] 4 02:46:21 Chronic pharyngit is 582032 Active 2016 Chronic sore throat; Note: Date Diagnosed : 04/02/2017 4:39 PM (J31.2) Not Available [facility] 4 02:46:18 Otorrhea of left ear 40231406505 68876 Active 2014 Otorrhea, left ear; Note: Date Diagnosed : 5 1:46 PM (H92.12) Not Available [facility] 4 02:46:13 Acute myringiti s 596028 Active 2013 Acute myringiti s, unspecifi ed; Note: Date Diagnosed : 4 2:42 PM (384.00) Not Available [facility] 4 02:46:19 Obstructi ve sleep apnea syndrome 31581374 Active 2013 SHIVAM; Note: Date Diagnosed : 4 2:42 PM (327.23) Not Available [facility] 4 02:46:23 Allergic rhinitis 92212115 Active 2013 Rhinitis, allergic; Note: Date Diagnosed : 4 2:42 PM (477.9) Not Available [facility] 4 02:46:19 Otorrhea 09828979 Active 2013 Otorrhea; Location: left CMS Risk: moderate risk CMS Treatment : new problem (to examiner) : additiona l workup planned N ote: Date Diagnosed : 4 4:00 PM (388.60) Not Available [facility] 4 02:46:22 Hypertrop hy of nasal turbinate s 56026109 Active 2013 Turbinate hypertrop hy; Note: Date Diagnosed : 4 2:42 PM (478.0) Not Available [facility] 4 02:46:20 Neoplasm of uncertain behavior of tongue 48244743 Active 2016 Neoplasm of uncertain behavior of tongue; Note: Date Diagnosed : 04/02/2017 5:20 PM (D37.02) Not Available [facility] 4 02:46:21 Gastroeso phageal reflux disease without esophagit is 458936774 Active 2016 Gastro-es ophageal reflux disease without esophagit is; Note: Date Diagnosed : 04/02/2017 4:40 PM (K21.9) Not Available [facility] 4 02:46:20 Tympanosc lerosis of left middle ear 51802729144 850829 Active 2024 KODAK MUÑOZ MD [address] [place] [address], [place], [phone] , [facility] 5 15:11:16 Laryngoph aryngeal reflux 731759668 Active 2024 KODAK MUÑOZ MD [address] [place] [address], [place], [phone] , [facility] 5 15:11:29 Problem Notes None recorded. Procedures Surgical History Date Name Laterality Status Provider Name and Address Organization Details Recorded Time arthroscopy of knee completed Penny Haq [facility] 11/03/2024 14:38:36 Imaging Results None recorded. Procedure [...] eye drops 11/03 completed Medicati on ID: [id number] D uration Value: 14 Prescri bed By [...] Not Available Not Available No t Available Hannah 5 mg-325 mg tablet 1-2 tablet by mouth 11/03 completed Medicati on ID: [id number] D uration Value: 7 Prescri bed By Name: Connie Dallas nd Name: Cortez Velásquez nd Method: E-Prescr ibed Sub s Allowed: subs OK Medic ationGen ericName : Hannah Not Available Not Available Not Available fluticaso [...] as directed 03/03 completed Medicati on ID: [id number] B rand Name: Atrovent Send Method: E-Prescr [...] Not Available TobraDex 0.3 %-0.1 % eye drops,[facility] pension 10/08 completed Medicati on ID: [id number] Pr escribed By Name: Connie Dallas nd [...] as directed 11/03 completed Medicati on ID: [id number] D uration Value: 7 Prescri bed By [...] inhalatio n 03/03 completed Medicati on ID: [id number] Br and Name: Flonase Send Method: E-Prescr [...] SNOMED-CT Code Diagnosis ICD10 Code Diagnosis Note [id number] KODAK MUÑOZ MD [facility] [address] [facility] [address] 11/03/2024 14:21:58 11/03/2024 15:13:09 Tympanosclerosis of left middle ear [id number] 5808386 H74.02 Sarcoidosis 17732695 D86 .9 Laryngopha ryngeal reflux 908020410 K21.9 Health Concerns Section Related Observation LastModified by Organization Detai ls LastModified Time None Recorded Concern Status LastModified by Organization Details LastModified Time None Recorded Advance Directives Directive None Recorded Payers Encounter Date Sequence Insurance Name Policy Number Policy Rosa Covered Member ID Rosa Member ID Guarantor Name 11/03/2024 2 [place] [facility] Madi Montgomery [id number] Madi Montgomery 11/03/2024 1 MEDICARE B-[place] [facility] [employer] Madi Montgomery [id number] Madi Montgomery Notes Date Note Type Note Provider Name and Address Organization Details Recorded Time 11/03/2024 text/html left earURI Dequan leon, then sneezed and felt pop in left earno otorrheagenerally decreased hearing on lefttreated with PO and topical abx reflux - on pantoprazole, still feels breakthrough reflux still 2017 diagnosed sarcoidosis of the tongue basealso found in lungs around KODAK MUÑOZ MD [address] [place] [address], [phone] [place] [facility] 11/03/2024 15:12:45
--- OUTSIDE RECORDS SUMMARY | 2025-01-04 17:34 | XMS_ITS | Clinical Summary ---
Author Organization [address] [facility] Address [address] [place] [address] Phone Care Team Providers Care Thoracic Medicine Specialist Name Role Phone Luis Enrique Fox DO Primary Care Provider [phone] Social History Tobacco Use Types Packs/Day Years [...] K/mcL LAB HEMETOLOGY METHOD 11/06/2024 11:17 AM [facility] RBC 4.40(L) 4.50 - 5.50 M/mcL LAB HEMETOLOGY METHOD 11/06/2024 11:17 AM [facility] Hemoglobin 13.6 13.5 - 17.5 g/dL LAB HEMETOLOGY METHOD 11/06/2024 11:17 AM [facility] Hematocrit 42.1 42.0 - 54.0 % LAB HEMETOLOGY METHOD 11/06/2024 11:17 AM [facility] MCV 96.1 79.0 - 98.0 FL LAB HEMETOLOGY METHOD 11/06/2024 11:17 AM [facility] MCH 31.1 27.0 - 32.0 pcg LAB HEMETOLOGY METHOD 11/06/2024 11:17 AM [facility] MCHC 32.3 32.0 - 37.0 g/dL LAB HEMETOLOGY METHOD 11/06/2024 11:17 AM [facility] RDW 12.7 11.0 - 15.0 % LAB HEMETOLOGY METHOD 11/06/2024 11:17 AM [facility] Platelets 347 130 - 400 K/mcL LAB HEMETOLOGY METHOD 11/06/2024 11:17 AM [facility] MPV 9.9 7.0 - 11.0 FL LAB HEMETOLOGY METHOD 11/06/2024 11:17 AM [facility] NRBC 0.0 <1.0 % LAB HEMETOLOGY METHOD 11/06/2024 11:17 AM [facility] NRBC Absolute 0.00 <0.10 K/mcL LAB HEMETOLOGY METHOD 11/06/2024 11:17 AM [facility] Neutrophils Relative 72.6 % LAB HEMETOLOGY METHOD 11/06/2024 11:17 AM [facility] Lymphocytes Relative 14.0 % LAB HEMETOLOGY METHOD 11/06/2024 11:17 AM [facility] Monocytes Relative 9.9 % LAB HEMETOLOGY METHOD 11/06/2024 11:17 AM [facility] Eosinophils Relative 2.2 % LAB HEMETOLOGY METHOD 11/06/2024 11:17 AM [facility] Basophils Relative 0.5 % LAB HEMETOLOGY METHOD 11/06/2024 11:17 AM [facility] Immature Granulocytes Relative 0.8 % LAB HEMETOLOGY METHOD 11/06/2024 11:17 AM [facility] Neutrophils Absolute 10.65(H) 1.50 - 7.00 K/mcL LAB HEMETOLOGY METHOD 11/06/2024 11:17 AM EST [facility] Lymphocytes Absolute 2.06 1.00 - 5.00 K/mcL LAB HEMETOLOGY METHOD 11/06/2024 11:17 AM EST [facility] Monocytes Absolute 1.45(H) 0.20 - 1.00 K/mcL LAB HEMETOLOGY METHOD 11/06/2024 11:17 AM EST [facility] Eosinophils Absolute 0.33 0.00 - 0.50 K/mcL LAB HEMETOLOGY METHOD 11/06/2024 11:17 AM EST [facility] Basophils Absolute 0.07 0.00 - 0.20 K/mcL LAB HEMETOLOGY METHOD 11/06/2024 11:17 AM [facility] Immature Granulocytes Absolute 0.12(H) 0.00 - 0.03 K/mcL LAB HEMETOLOGY METHOD 11/06/2024 11:17 AM EST [facility] Blood Venous blood specimen / Unknown Venipuncture / Unknown 11/06/2024 10:27 AM EST 11/06/2024 10:27 AM EST Shira Romero [employer] 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
== END 2025-01-04 14:10 | disposition home or self-care (01) ==
LOC: HO.PMC 13:52
PROVIDERS: PCP Internal Medicine; Visit Provider Nurse Practitioner Family
DX: M47.22 Other spondylosis with radiculopathy, cervical region (principal); M79.18 Myalgia, other site; M17.0 Bilateral primary osteoarthritis of knee; M19.011 Primary osteoarthritis, right shoulder; M16.12 Unilateral primary osteoarthritis, left hip
CPT/HCPCS: 99214; G2211

== ENCOUNTER → 2025-01-04 13:51 | Outpatient (BNVA) | payer MEDICARE, MEDICAID, SELFPAY | PROVIDERS: PCP Internal Medicine; Visit Provider Nurse Practitioner Family | DX: M47.22 Other spondylosis with radiculopathy, cervical region (principal); M79.18 Myalgia, other site; M17.0 Bilateral primary osteoarthritis of knee; M19.011 Primary osteoarthritis, right shoulder; M16.12 Unilateral primary osteoarthritis, left hip; Z51.81 Encounter for therapeutic drug level monitoring; Z79.891 Long term (current) use of opiate analgesic | CPT/HCPCS: 99212 ==

== ENCOUNTER 2025-02-02 13:48 | Outpatient (AMB) | payer MEDICARE, MEDICAID, SELFPAY ==
--- NOTE | 2025-02-02 13:57 | MHC.OFFVIS ---
Vital Signs 02/02/25 14:05 Height 5 ft 10 in Weight 240 lb 2 oz BMI 34.5 BP 130/76 Blood Pressure Location Rt brachial Position Sitting Pulse 89 Pulse Source Pulse Oximeter Pulse Oximetry (%) 97 Oxygen Delivery Method Room Air Intake Visit Reasons: Pill Count Intake Note: Madi comes in today for a pill count to oxycodone, patient should have 66 tablets and presents with 78 tablets which he last took today 02/02/25. Pain today 810. 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 Patient is prescribed oxycodone 10mg po tid prn. He arrived today with the expectation of having 66 pills, he presented 68 pills which were counted in the presence of two staff members and returned to the patient in the original prescription bottle. Pain is reported today as 810 and last dose of pain medication was taken at 9am today. Patient states sleep, mobility and overall level of functioning improved with use of his opioid medication. Denies side effects including somnolence, constipation, urinary retention, itching, dyspnea, rash, dizziness or weakness. Prior visit with Dr Turner: h/o neck pain low back pain as well as right shoulder and bilateral knee pain, which have been present for many years.?the neck pain starts midline and radiates to bilateral shoulders, with associated numbness down the entire left arm and moderate pain from the shoulder to the elbow.? He denies any significant weakness of bilateral upper extremities.? In the past he was under the care of Dr. Diaz and managed with morphine 30 mg twice a day as well as multiple injections and RFA for the lumbar spine.? Most recently, he has been seen at [facility].? They have treated him with injections, the last being a few months ago with a left-sided neck injection.? He reports significant pain relief for the 1st month and then slowly his pain returns by the end of the 2nd month.? He reports seeing a neurosurgeon in the past and was told he was not a surgical candidate. He also reports trialing buprenorphine in the past with Dr. Diaz, which he states had negative effect on his motor function.? He has tried and failed physical therapy multiple times.? In the past he had good relief with chiropractic manipulation but has not done this for many year.? For quite some time he was in our office on chronic opioid program,?He was suspended in our office from opioid program because he had a pill count which was 20 pills short.? He was suspended for 6 months because he was low risk for opioid addiction.? If he will be found to have in discrepancies with his pill count again his suspension now will before the full year. [facility] Medical History Osteomyelitis of foot Hyponatremia Hypertension Amputation of toe of right foot Diabetic infection of right foot Diabetes mellitus type 2, insulin dependent Chronic HFrEF (heart failure with reduced ejection fraction) Spondylosis of cervical spine with radiculopathy Myofascial pain Osteoarthritis of knees, bilateral Osteoarthritis of right shoulder Cervical spinal stenosis Arthritis of left hip Review of Systems Const All systems reviewed & are unremarkable except as noted in HPI and below Physical Exam Vital Signs: Last Vital Signs Pulse 89 02/02/25 14:05 BP 130/76 02/02/25 14:05 Pulse Ox 97 02/02/25 14:05 Oxygen Delivery Method Room Air 02/02/25 14:05 BMI result Body Mass Index 34.5 General: awake, oriented. Answers questions appropriately. Appears tired. Speech clear. Skin: warm, dry, intact HEENT: Normocephalic. Hearing intact. Cardiac: External chest normal in appearance. Respiratory: No cough, audible wheezing or stridor. Abdomen: without gross distension. MS: No obvious swelling or deformity Able to transition from sit to stand unassisted. Neurological: Oriented to person, place, time and situation. Thought process intact. Psychiatric: Appropriate mood and affect. Good judgment and insight. Const Other: Assessment & Plan Assessment & Plan (1) Spondylosis of cervical spine with radiculopathy: Code(s): M47.22 - Other spondylosis with radiculopathy, cervical region Category: Medical (2) Myofascial pain: Code(s): M79.18 - Myalgia, other site Category: Medical (3) Osteoarthritis of knees, bilateral: Code(s): M17.0 - Bilateral primary osteoarthritis of knee Category: Medical (4) Osteoarthritis of right shoulder: Code(s): M19.011 - Primary osteoarthritis, right shoulder Category: Medical (5) Arthritis of left hip: Code(s): M16.12 - Unilateral primary osteoarthritis, left hip Category: Medical Plan [place] was reviewed and without concerns. No obvious signs of diversion, abuse or misuse of the opioid medications. Prescription for oxycodone 10mg po tid prn sent C/W methocarbamol 500 mg p.o. twice daily as needed. Patient advised on cautions for use All questions and concerns have been answered and patient agrees with the plan. Follow-up in the office in 1 month, sooner if needed. Note: He was suspended from the opioid program previously because he was 20 pills short. His risk was mild and he was suspended for 6 month. If there is a second violation his suspension will be for a full year. Medications: Refilled oxycodone Partial Fill upon patient request. 10 mg PO TID PRN 90 tabs 0RF pain 30 days M17.0 - Bilateral primary osteoarthritis of knee, M19.011 - Primary osteoarthritis, right shoulder, M48.02 - Spinal stenosis, cervical region, M79.18 - Myalgia, other site Coding Level of Care Code Est Pt Level 3 (13036) Complex EM visit Add On G2211 Diagnoses Spondylosis of cervical spine with radiculopathy M47.22 Myofascial pain M79.18 Osteoarthritis of knees, bilateral M17.0 Osteoarthritis of right shoulder M19.011 Arthritis of left hip M16.12
[2025-02-02 14:05] VITALS: BP 130/76; PULSE 89; O2SAT 97; BMI 34.5
--- OUTSIDE RECORDS SUMMARY | 2025-02-02 14:10 | XMS_ITS | Clinical Summary ---
Author Organization [address] [facility] Address [address] [place] [address] Phone Care Team Providers Care Substation Wireman Name Role Phone DereckLuis Enrique robertson Primary Care Provider [phone] Social History Tobacco Use Types Packs/Day Years Used Date Smoking Tobacco: Never Assessed Sex and Gender Information Value Date Recorded Sex Assigned at Not on file Legal Sex Male 11:05 PM EST Gender Identity Not on file Sexual Orientation Not on file Plan of Treatment Health Maintenance Due Date Last Done Comments Diabetes: Annual Foot Exam 1966 Diabetes: Annual Retina Eye Exam 1966 DTaP,Tdap,and Td Vaccines (1 - Tdap) 1975 Pneumococcal Vaccine: 50+ Years (1 of 2 - PCV) 1975 RSV Immunization Adult Patients (1 - Risk 60-74 years 1-dose series) 2016 Colorectal Cancer Screening: Colonoscopy 09/27/2022 Depression Screening 09/27/2022 Falls Risk Assessment 09/27/2022 Hepatitis C Screening 09/27/2022 Medicare Annual Wellness Visit 09/27/2022 Social Influencers of Health Screening 09/27/2022 Zoster Vaccines (2 of 2) 05/26/2024 03/31/2024 Diabetes: Blood Sugar Control Test (HGBA1C) 07/20/2025 01/17/2025 Diabetes: Annual Urine Albumin-Creatinine Ratio (uACR) 01/17/2026 01/17/2025 Diabetes: Annual GFR (Glomerular Filtration Rate) 01/17/2026 01/17/2025 Hypertension/CHF/CAD Annual BMP Blood Test 01/17/2026 01/17/2025 Cholesterol Screening (Lipid Panel) 01/17/2030 01/17/2025 Influenza Vaccine Completed 06/22/2024, , 07/27/2022 COVID-19 [...] age to complete this topic Meningococcal B Vaccine Aged Out No l onger eligible based on patient's age to complete this topic RSV Immunization Patients Under 20 months Aged Out No longer eligible based on patient's age to complete this topic Varicella Vaccines Aged Out No longer eligible based on patient's age to complete this topic Procedures Procedure Name Priority Date/Time Associated Diagnosis Comments CBC WITH AUTO DIFFERENTIAL Routine 01/17/2025 1:20 PM EDT Diabetes mellitus (CMS/HCC V24, CMS/HCC V28) Essential hypertension, malignant Hyperlipemia HEMOGLOBIN A1C Routine 01/17/2025 1:20 PM EDT Diabetes mellitus (CMS/HCC V24, CMS/HCC V28) Essential hypertension, malignant Hyperlipemia MICROALBUMIN CREATININE URINE RATIO Routine 01/17/2025 1:20 PM EDT Diabetes mellitus (CMS/HCC V24, CMS/HCC V28) Essential hypertension, malignant Hyperlipemia COMPREHENSIVE METABOLIC PANEL Routine 01/17/2025 1:20 PM EDT Diabetes mellitus (CMS/HCC V24, CMS/HCC V28) Essential hypertension, malignant Hyperlipemia CBC AND DIFFERENTIAL Routine 01/17/2025 1:20 PM EDT Diabetes mellitus (CMS/HCC V24, CMS/HCC V28) Essential hypertension, malignant Hyperlipemia THYROID STIMULATING HORMONE Routine 01/17/2025 1:20 PM EDT Diabetes mellitus (CMS/HCC V24, CMS/HCC V28) Essential hypertension, malignant Hyperlipemia PROSTATE SPECIFIC ANTIGEN SCREEN Routine 01/17/2025 1:20 PM EDT Diabetes mellitus ([facility]/HCC V24, CMS/HCC V28) Essential hypertension, malignant Hyperlipemia Encounter for screening for malignant neoplasm of prostate CREATINE KINASE Routine 01/17/2025 1:20 PM EDT Diabetes mellitus ([facility]/HCC V24, [facility] V28) Essential hypertension, malignant Hyperlipemia LIPID PANEL WITH REFLEX TO DIRECT LDL Routine 01/17/2025 1:20 PM EDT Diabetes mellitus ([facility]/HCC V24, CMS/[facility] V28) Essential hypertension, malignant Hyperlipemia CBC WITH AUTO DIFFERENTIAL Routine 11/06/2024 10:27 AM EST Leg wound, left Cellulitis CBC AND DIFFERENTIAL Routine 11/06/2024 10:27 AM EST Leg wound, left Cellulitis from Last 3 Months Results * Prostate specific antigen screen (01/17/2025 1:20 PM EDT) PSA 1.17 0.00 - 4.00 ng/mL LAB CHEMISTRY METHOD 01/17/2025 4:[address] [facility] Blood Venous blood specimen / Unknown Venipuncture / Unknown 01/17/2025 1:20 PM EDT 01/17/2025 1:[address] [facility] - 01/17/2025 4:29 PM EDT The Siemens Advia Centaur Chemiluminescent Immunoassay is used. Results obtained with different assay methods or kits cannot be used interchangeably. Results cannot be interpreted as absolute evidence of the presence or absence of malignant disease. us Shira Romero NP LAB BLOOD ORDERABLES Fi nal Result [facility] [address] [place] [address], [place] [phone] * (ABNORMAL) Lipid panel with reflex to direct LDL (01/17/2025 1:20 PM EDT) [facility] Cholesterol 145 0 - 200 mg/dL LAB CHEMISTRY METHOD 01/17/2025 4:[address] [facility] Triglycerides 237(H) 0 - 150 mg/dL LAB CHEMISTRY METHOD 01/17/2025 4:[address] [facility] HDL 41 >=40 mg/dL LAB CHEMISTRY METHOD 01/17/2025 4:[address] [facility] LDL Calculated 57 0 - 100 mg/dL LAB CHEMISTRY METHOD 01/17/2025 4:[address] [facility] VLDL Cholesterol Olegario 47.4 mg/dL LAB CHEMISTRY METHOD 01/17/2025 4:[address] [facility] Non HDL Chol. (LDL+VLDL) 104 <145 mg/dL LAB CHEMISTRY METHOD 01/17/2025 4:[address] [facility] Chol/HDL Ratio 3.5 0.0 - 4.4 LAB CHEMISTRY METHOD 01/17/2025 4:[address] [facility] Blood Venous blood specimen / Unknown Venipuncture / Unknown 01/17/2025 1:20 PM EDT 01/17/2025 1:20 PM EDT us Shira Romero TELEGRAPH OFFICE TELEPHONE CLERK LAB BLOOD ORDERABLES Fi nal Result [facility] [address] [place] [address], [place] [phone] * (ABNORMAL) CBC auto differential (01/17/2025 1:20 PM EDT) Only the most recent of2 resultswithin the time period is included. [facility] WBC 7.5 4.8 - 10.8 K/mcL LAB HEMETOLOGY METHOD 01/17/2025 3:[address] [facility] RBC 4.20(L) 4.50 - 5.50 M/mcL LAB HEMETOLOGY METHOD [facility]/17[facility]25 [facility] Hemoglobin 13.1(L) 13.5 - 17.5 g/dL LAB HEMETOLOGY METHOD 01/17/2025 3:23 [facility] Hematocrit 39.6(L) 42.0 - 54.0 % LAB HEMETOLOGY METHOD 01/17/2025 3:[address] [facility] MCV 95.4 79.0 - 98.0 FL LAB HEMETOLOGY METHOD 01/17/2025 3:[address] [facility] MCH 31.6 27.0 - 32.0 pcg LAB HEMETOLOGY METHOD 01/17/2025 3:[address] [facility] MCHC 33.1 32.0 - 37.0 g/dL LAB HEMETOLOGY METHOD 01/17/2025 3:[address] [facility] RDW 13.0 11.0 - 15.0 % LAB HEMETOLOGY METHOD 01/17/2025 3:[address] [facility] Platelets 289 130 - 400 K/mcL LAB HEMETOLOGY METHOD 01/17/2025 3:[address] [facility] MPV 9.7 7.0 - 11.0 FL LAB HEMETOLOGY METHOD 01/17/2025 3:[address] [facility] NRBC 0.0 <1.0 % LAB HEMETOLOGY METHOD 01/17/2025 3:[address] [facility] NRBC Absolute 0.00 <0.10 K/mcL LAB HEMETOLOGY METHOD 01/17/2025 3:[address] [facility] Neutrophils Relative 52.2 % LAB HEMETOLOGY METHOD 01/17/2025 3:[address] [facility] Lymphocytes Relative 29.4 % LAB HEMETOLOGY METHOD 01/17/2025 3:[address] [facility] Monocytes Relative 13.0 % LAB HEMETOLOGY METHOD 01/17/2025 3:[address] [facility] Eosinophils Relative 4.1 % LAB HEMETOLOGY METHOD 01/17/2025 3:[address] [facility] Basophils Relative 0.9 % LAB HEMETOLOGY METHOD 01/17/2025 3:[address] [facility] Immature Granulocytes Relative 0.4 % LAB HEMETOLOGY METHOD 01/17/2025 3:[address] [facility] Neutrophils Absolute 3.93 1.50 - 7.00 K/mcL LAB HEMETOLOGY METHOD 01/17/2025 3:[address] [facility] Lymphocytes Absolute 2.22 1.00 - 5.00 K/mcL LAB HEMETOLOGY METHOD 01/17/2025 3:[address] [facility] Monocytes Absolute 0.98 0.20 - 1.00 K/mcL LAB HEMETOLOGY METHOD 01/17/2025 3:[address] [facility] Eosinophils Absolute 0.31 0.00 - 0.50 K/mcL LAB HEMETOLOGY METHOD 01/17/2025 3:[address] [facility] Basophils Absolute 0.07 0.00 - 0.20 K/mcL LAB HEMETOLOGY METHOD 01/17/2025 3:[address] [facility] Immature Granulocytes Absolute 0.03 0.00 - 0.03 K/mcL LAB HEMETOLOGY METHOD 01/17/2025 3:[address] [facility] Blood Venous blood specimen / Unknown Venipuncture / Unknown 01/17/2025 1:20 PM EDT 01/17/2025 1:20 PM EDT us Shira Romero TELEGRAPH OFFICE TELEPHONE CLERK LAB BLOOD ORDERABLES Fi nal Result [facility] [address] [place] [address], [place] [phone] * (ABNORMAL) Microalbumin creatinine urine ratio (01/17/2025 1:20 PM EDT) Creatinine, Urine 117.0 mg/dL LAB CHEMISTRY METHOD 01/17/2025 4:[address] [facility] Microalb, Ur 49.3(H) 0.0 - 29.0 mg/L LAB CHEMISTRY METHOD 01/17/2025 4:[address] [facility] Microalb/Crea t Ratio 42(H) <30 mg/g creat LAB CHEMISTRY METHOD 01/17/2025 4:[address] [facility] Urine Urine specimen obtained by clean catch procedure / Unknown Non-blood Collection / Unknown 01/17/2025 1:20 PM EDT 01/17/2025 1:20 PM EDT us Shira Romero TELEGRAPH OFFICE TELEPHONE CLERK LAB URINE ORDERABLES Fi nal Result [facility] [address] [place] [address], [place] [phone] * (ABNORMAL) Thyroid stimulating hormone (01/17/2025 1:20 PM EDT) TSH 4.42(H) 0.40 - 4.00 mcIU/mL LAB CHEMISTRY METHOD 01/17/2025 4:[address] [facility] Blood Venous blood specimen / Unknown Venipuncture / Unknown 01/17/2025 1:20 PM EDT 01/17/2025 1:20 PM EDT us Shira Romero TELEGRAPH OFFICE TELEPHONE CLERK LAB BLOOD ORDERABLES Fi nal Result [facility] [address] [place] [address], [place] [phone] * (ABNORMAL) Hemoglobin A1c (01/17/2025 1:20 PM EDT) Pathologist [facility] Hemoglobin A1C 7.6(H) <6.5 % LAB CHEMISTRY METHOD 01/17/2025 8:[address] [facility] Mean Bld Glu Estim. 171 mg/dL LAB CHEMISTRY METHOD 01/17/2025 8:[address] [facility] Blood Venous blood specimen / Unknown Venipuncture / Unknown 01/17/2025 1:20 PM EDT 01/17/2025 1:20 PM EDT us Shira Romero NP LAB BLOOD ORDERABLES Fi nal Result Performing Organization Address City/[facility]/ZIP Co de Phone Number [facility] [address] [place] [address], [place] [phone] * Creatine kinase (01/17/2025 1:20 PM EDT) [facility] Total CK 74 22 - 269 unit/L LAB CHEMISTRY METHOD 01/17/2025 4:[address] [facility] Blood Venous blood specimen / Unknown Venipuncture / Unknown 01/17/2025 1:20 PM EDT 01/17/2025 1:20 PM EDT us Shira Romero NP LAB BLOOD ORDERABLES Fi nal Result [facility] [address] [place] [address], [place] [phone] * (ABNORMAL) Comprehensive metabolic panel (01/17/2025 1:20 PM EDT) Sodium 138 133 - 145 mmol/L LAB CHEMISTRY METHOD 01/17/2025 4:[address] [facility] Potassium 4.3 3.5 - 5.5 mmol/L LAB CHEMISTRY METHOD 01/17/2025 4:[address] [facility] Chloride 100 96 - 110 mmol/L LAB CHEMISTRY METHOD 01/17/2025 4:[address] [facility] CO2 32 21 - 32 mmol/L LAB CHEMISTRY METHOD 01/17/2025 4:[address] [facility] Anion Gap 6 3 - 11 LAB CHEMISTRY METHOD 01/17/2025 4:[address] [facility] Glucose 138(H) 70 - 100 mg/dL LAB CHEMISTRY METHOD 01/17/2025 4:[address] [facility] BUN 11 5 - 25 mg/dL LAB CHEMISTRY METHOD 01/17/2025 4:[address] [facility] Creatinine 0.93 0.70 - 1.30 mg/dL LAB CHEMISTRY METHOD 01/17/2025 4:[address] [facility] eGFR 89 >=60 mL/min/1. 73m2 LAB CHEMISTRY METHOD 01/17/2025 4:[address] [facility] Comment:Calculation based on the??Chronic Kidney Disease Epidemiology Collaboration (CKD-EPI) equation refit??without adjustment for race. BUN/Creatinine Ratio 11.8 LAB CHEMISTRY METHOD 01/17/2025 4:[address] [facility] Calcium 9.9 8.5 - 10.5 mg/dL LAB CHEMISTRY METHOD 01/17/2025 4:[address] [facility] AST (SGOT) 29 10 - 42 unit/L LAB CHEMISTRY METHOD 01/17/2025 4:[address] [facility] ALT (SGPT) 33 10 - 60 unit/L LAB CHEMISTRY METHOD 01/17/2025 4:[address] [facility] Alkaline Phosphatase 91 42 - 121 unit/L LAB CHEMISTRY METHOD 01/17/2025 4:[address] [facility] Total Protein 7.4 6.0 - 8.0 g/dL LAB CHEMISTRY METHOD 01/17/2025 4:[address] [facility] Albumin 3.5 3.2 - 5.0 g/dL LAB CHEMISTRY METHOD 01/17/2025 4:[address] [facility] Total Bilirubin 0.4 0.0 - 1.4 mg/dL LAB CHEMISTRY METHOD 01/17/2025 4:[address] [facility] Blood Venous blood specimen / Unknown Venipuncture / Unknown 01/17/2025 1:20 PM EDT 01/17/2025 1:20 PM EDT Shira Romero TELEGRAPH OFFICE TELEPHONE CLERK LAB BLOOD ORDERABLES nal Result [facility] [address] [place] [address], from Last 3 Months Insurance MEDICARE MEDICAID - [place] Care Teams Substation Wireman Relationship Specialty Start Date End Date Luis Enrique Fox DO [address] [place] [phone] PCP - General Internal Medicine 09/21/17
--- OUTSIDE RECORDS SUMMARY | 2025-02-02 14:11 | XMS_ITS | Data Portability ---
Author Organization [place] [facility], Allergy Address [address] [place] [phone] Assessment Encounter Date Assessment Date Assessment LastModified [...] and Address Organization Details Recorded Time Dysphagia 95906261 Active 2016 Dysphagia , unspecifi ed; Note: Date Diagnosed : 04/02/2017 4:39 PM (R13.10) Not Available [facility] 4 02:46:16 Deviated nasal septum 595200775 Active 2015 Deviated nasal septum; Note: Date Diagnosed : 4 2:42 PM (470) ; Start Date : 4 Deviate d nasal septum; Note: Date Diagnosed : 03/12/2016 3:35 PM (J34.2) Not Available [facility] 4 02:46:12 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, unspecifi ed; Note: Date Diagnosed : 04/02/2017 4:40 PM (D86.9) Not Available [facility] 4 02:46:25 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; Note: Date Diagnosed : 05/05/2017 2:20 PM (D10.1) Not Available [facility] 4 02:46:21 Chronic pharyngit is 538481 Active 2016 Chronic sore throat; Note: Date Diagnosed : 04/02/2017 4:39 PM (J31.2) Not Available [facility] 4 02:46:18 Otorrhea of left ear [id number] 59510 Active 2014 Otorrhea, left ear; Note: Date Diagnosed : 5 1:46 PM (H92.12) Not Available [facility] 4 02:46:13 Acute myringiti s 540761 Active 2013 Acute myringiti s, unspecifi ed; Note: Date Diagnosed : 4 2:42 PM (384.00) Not Available [facility] 4 02:46:19 Obstructi ve sleep apnea syndrome 23140963 Active 2013 SHIVAM; Note: Date Diagnosed : 4 2:42 PM (327.23) Not Available [facility] 4 02:46:23 Allergic rhinitis 74303058 Active 2013 Rhinitis, allergic; Note: Date Diagnosed : 4 2:42 PM (477.9) Not Available [facility] 4 02:46:19 Otorrhea 51509410 Active 2013 Otorrhea; Location: left CMS Risk: moderate risk CMS Treatment : new problem (to examiner) : additiona l workup planned N ote: Date Diagnosed : 4 4:00 PM (388.60) Not Available [facility] 4 02:46:22 Hypertrop hy of nasal turbinate s 26660494 Active 2013 Turbinate hypertrop hy; Note: Date Diagnosed : 4 2:42 PM (478.0) Not Available [facility] 4 02:46:20 Neoplasm of uncertain behavior of tongue 08219745 Active 2016 Neoplasm of uncertain behavior of tongue; Note: Date Diagnosed : 04/02/2017 5:20 PM (D37.02) Not Available [facility] 4 02:46:21 Gastroeso phageal reflux disease without esophagit is 511125513 Active 2016 Gastro-es ophageal reflux disease without esophagit is; Note: Date Diagnosed : 04/02/2017 4:40 PM (K21.9) Not Available [facility] 4 02:46:20 Tympanosc lerosis of left middle ear [id number] 378561 Active 2024 KODAK MUÑOZ MD [address] [place] [address], [place], [phone] , [facility] 5 15:11:16 Laryngoph aryngeal reflux 350794679 Active 2024 KODAK MUÑOZ MD [address] [place] [address], [place], [phone] , [facility] 5 15:11:29 Problem Notes None recorded. Procedures Surgical History Date Name Laterality Status Provider Name and Address Organization Details Recorded Time arthroscopy of knee completed Penny Haq [facility] 11/03/2024 14:38:36 Imaging Results None recorded. Procedure [...] eye drops 11/03 completed Medicati on ID: [id number] D uration Value: 14 Prescri bed By [...] Not Available Not Available No t Available [place] 5 mg-325 mg tablet 1-2 tablet by mouth 11/03 completed Medicati on ID: [id number] D uration Value: 7 Prescri bed By Name: Connie aDllas nd Name: Cortez Velásquez nd Method: E-Prescr ibed Sub s Allowed: subs OK Medic ationGen ericName : [place] Not Available Not Available Not Available fluticaso [...] as directed 03/03 completed Medicati on ID: [id number] B rand Name: Atrovent Send Method: E-Prescr [...] Not Available TobraDex 0.3 %-0.1 % eye drops,[facility] 10/08 completed Medicati on ID: [id number] Pr escribed By Name: Connie [place] nd [...] as directed 11/03 completed Medicati on ID: [id number] D uration Value: 7 Prescri bed By [...] inhalatio n 03/03 completed Medicati on ID: [id number] Br and Name: Flonase Send Method: E-Prescr [...] SNOMED-CT Code Diagnosis ICD10 Code Diagnosis Note [id number] KODAK MUÑOZ MD [facility] [address] [place] [address] 11/03/2024 14:21:58 11/03/2024 15:13:09 Tympanosclerosis of left middle ear [id number] 8465674 H74.02 Sarcoidosis 67513976 D86 .9 Laryngopha ryngeal reflux 017261866 K21.9 Health Concerns Section Related Observation LastModified by Organization Detai ls LastModified Time None Recorded Concern Status LastModified by Organization Details LastModified Time None Recorded Advance Directives Directive None Recorded Payers Encounter Date Sequence Insurance Name Policy Number Policy Rosa Covered Member ID Rosa Member ID Guarantor Name 11/03/2024 2 [place] [facility] Madi Montgomery [id number] Madi Montgomery 11/03/2024 1 MEDICARE B-[place]: [facility] [employer] Madi Montgomery [id number] Madi Montgomery Notes Date Note Type Note Provider Name and Address Organization Details Recorded Time 11/03/2024 text/html left earURI Dequan leon, then sneezed and felt pop in left earno otorrheagenerally decreased hearing on lefttreated with PO and topical abx reflux - on pantoprazole, still feels breakthrough reflux still 2017 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
== END 2025-02-02 14:10 | disposition home or self-care (01) ==
LOC: HO.PMC 13:49
PROVIDERS: PCP Internal Medicine; Visit Provider Registered Nurse Emergency
DX: M47.22 Other spondylosis with radiculopathy, cervical region (principal); M79.18 Myalgia, other site; M17.0 Bilateral primary osteoarthritis of knee; M19.011 Primary osteoarthritis, right shoulder; M16.12 Unilateral primary osteoarthritis, left hip
CPT/HCPCS: 99213; G2211

== ENCOUNTER → 2025-02-02 13:48 | Outpatient (BNVA) | payer MEDICARE, MEDICAID, SELFPAY | PROVIDERS: PCP Internal Medicine; Visit Provider Registered Nurse Emergency | DX: Z51.81 Encounter for therapeutic drug level monitoring (principal); M47.22 Other spondylosis with radiculopathy, cervical region; M79.18 Myalgia, other site; M17.0 Bilateral primary osteoarthritis of knee; M19.011 Primary osteoarthritis, right shoulder; M16.12 Unilateral primary osteoarthritis, left hip; Z79.891 Long term (current) use of opiate analgesic | CPT/HCPCS: 99212 ==

== ENCOUNTER 2025-03-09 13:50 | Outpatient (AMB) | payer MEDICARE, MEDICAID, SELFPAY ==
--- OUTSIDE RECORDS SUMMARY | 2025-03-09 13:55 | XMS_ITS | Clinical Summary ---
Author Organization [facility] Address [address] [place] [address] Phone Care Team Providers Care Help Desk Agent Name Role Phone DereckLuis Enrique robertson Primary Care Provider [phone] Social History Tobacco Use Types Packs/Day Years [...] Years (1 of 2 - PCV) 1975 Colorectal Cancer Screening: Colonoscopy 09/27/2022 Depression Screening 09/27/2022 Falls Risk Assessment 09/27/2022 Hepatitis C Screening 09/27/2022 Medicare Annual Wellness Visit 09/27/2022 Social Influencers of Health Screening 09/27/2022 Zoster Vaccines (2 of 2) 05/26/2024 03/31/2024 COVID-19 Vaccine ( season) 2025 08/03/2024, 07/30/2023, 01/21/2023, Additional history exists Diabetes: Blood Sugar Control Test (HGBA1C) 07/20/2025 01/17/2025 Diabetes: Annual Urine Albumin-Creatinine Ratio (uACR) 01/17/2026 01/17/2025 Diabetes: Annual GFR (Glomerular Filtration Rate) 01/17/2026 01/17/2025 Hypertension/CHF/CAD Annual BMP Blood Test 01/17/2026 01/17/2025 Cholesterol Screening (Lipid Panel) 01/17/2030 01/17/2025 RSV Immunization Adult Patients (1 - 1-dose 75+ series) 2031 Influenza Vaccine Completed 06/22/2024, , 07/27/2022 HIB Vaccines Aged Out No longer eligi [...] V24, CMS/HCC V28) Essential hypertension, malignant Hyperlipemia LIPID PANEL WITH REFLEX TO DIRECT LDL Routine 01/17/2025 1:20 PM EDT Diabetes mellitus (CMS/HCC V24, CMS/HCC V28) Essential hypertension, malignant Hyperlipemia from Last 3 Months Results * Prostate specific antigen screen (01/17/2025 1:20 PM EDT) PSA 1.17 0.00 - 4.00 ng/mL LAB CHEMISTRY METHOD 01/17/2025 4:29 PM EDT [facility] Blood Venous blood specimen / Unknown Venipuncture / Unknown 01/17/2025 1:20 PM EDT 01/17/2025 1:20 PM EDT Narrative [facility] - 01/17/2025 4:29 PM EDT The Siemens Advia Centaur Chemiluminescent Immunoassay is used. Results obtained with different assay methods or kits cannot be used interchangeably. Results cannot be interpreted as absolute evidence of the presence or absence of malignant disease. us Shira Romero NP LAB BLOOD ORDERABLES Fi nal Result [facility] [address] [place] [address], [place] [phone] * (ABNORMAL) Lipid panel with reflex to direct LDL (01/17/2025 1:20 PM EDT) Cholesterol 145 0 - 200 mg/dL LAB CHEMISTRY METHOD 01/17/2025 4:11 PM EDT [facility] Triglycerides 237(H) 0 - 150 mg/dL LAB CHEMISTRY METHOD 01/17/2025 4:11 PM EDT [facility] HDL 41 >=40 mg/dL LAB CHEMISTRY METHOD 01/17/2025 4:11 PM EDT [facility] LDL Calculated 57 0 - 100 mg/dL LAB CHEMISTRY METHOD 01/17/2025 4:11 PM EDT [facility] VLDL Cholesterol Olegario 47.4 mg/dL LAB CHEMISTRY METHOD 01/17/2025 4:11 PM EDT [facility] Non HDL Chol. (LDL+VLDL) 104 <145 mg/dL LAB CHEMISTRY METHOD 01/17/2025 4:11 PM EDT [facility] Chol/HDL Ratio 3.5 0.0 - 4.4 LAB CHEMISTRY METHOD 01/17/2025 4:11 PM EDT [facility] Blood Venous blood specimen / Unknown Venipuncture / Unknown 01/17/2025 1:20 PM EDT 01/17/2025 1:20 PM EDT us Shira Romero MACHINE FINISHER LAB BLOOD ORDERABLES Fi nal Result [facility] [address] [place] [address], * (ABNORMAL) CBC auto differential (01/17/2025 1:20 PM EDT) [facility] WBC 7.5 4.8 - 10.8 K/mcL LAB HEMETOLOGY METHOD 01/17/2025 3:23 PM EDT [facility] RBC 4.20(L) 4.50 - 5.50 M/mcL LAB HEMETOLOGY METHOD 01/17/2025 3:23 PM EDT [facility] Hemoglobin 13.1(L) 13.5 - 17.5 g/dL LAB HEMETOLOGY METHOD 01/17/2025 3:23 PM EDT [facility] Hematocrit 39.6(L) 42.0 - 54.0 % LAB HEMETOLOGY METHOD 01/17/2025 3:23 PM [facility] MCV 95.4 79.0 - 98.0 FL LAB HEMETOLOGY METHOD 01/17/2025 3:23 PM EDT [facility] MCH 31.6 27.0 - 32.0 pcg LAB HEMETOLOGY METHOD 01/17/2025 3:23 PM [facility] MCHC 33.1 32.0 - 37.0 g/dL LAB HEMETOLOGY METHOD 01/17/2025 3:23 PM [facility] RDW 13.0 11.0 - 15.0 % LAB HEMETOLOGY METHOD 01/17/2025 3:23 PM [facility] Platelets 289 130 - 400 K/mcL LAB HEMETOLOGY METHOD 01/17/2025 3:23 PM [facility] MPV 9.7 7.0 - 11.0 FL LAB HEMETOLOGY METHOD 01/17/2025 3:23 PM [facility] NRBC 0.0 <1.0 % LAB HEMETOLOGY METHOD 01/17/2025 3:23 PM [facility] NRBC Absolute 0.00 <0.10 K/mcL LAB HEMETOLOGY METHOD 01/17/2025 3:23 PM [facility] Neutrophils Relative 52.2 % LAB HEMETOLOGY METHOD 01/17/2025 3:23 PM [facility] Lymphocytes Relative 29.4 % LAB HEMETOLOGY METHOD 01/17/2025 3:23 PM [facility] Monocytes Relative 13.0 % LAB HEMETOLOGY METHOD 01/17/2025 3:23 PM EDT [facility] Eosinophils Relative 4.1 % LAB HEMETOLOGY METHOD 01/17/2025 3:23 PM EDT [facility] Basophils Relative 0.9 % LAB HEMETOLOGY METHOD 01/17/2025 3:23 PM EDT [facility] Immature Granulocytes Relative 0.4 % LAB HEMETOLOGY METHOD 01/17/2025 3:23 PM EDT [facility] Neutrophils Absolute 3.93 1.50 - 7.00 K/mcL LAB HEMETOLOGY METHOD 01/17/2025 3:23 PM EDT [facility] Lymphocytes Absolute 2.22 1.00 - 5.00 K/mcL LAB HEMETOLOGY METHOD 01/17/2025 3:23 PM EDT [facility] Monocytes Absolute 0.98 0.20 - 1.00 K/mcL LAB HEMETOLOGY METHOD 01/17/2025 3:23 PM EDT [facility] Eosinophils Absolute 0.31 0.00 - 0.50 K/mcL LAB HEMETOLOGY METHOD 01/17/2025 3:23 PM EDT [facility] Basophils Absolute 0.07 0.00 - 0.20 K/mcL LAB HEMETOLOGY METHOD 01/17/2025 3:23 PM EDT [facility] Immature Granulocytes Absolute 0.03 0.00 - 0.03 K/mcL LAB HEMETOLOGY METHOD 01/17/2025 3:23 PM EDT [facility] Blood Venous blood specimen / Unknown Venipuncture / Unknown 01/17/2025 1:20 PM EDT 01/17/2025 1:20 PM EDT us Shira Romero MACHINE FINISHER LAB BLOOD ORDERABLES Fi nal Result [facility] [address] [place] [address], [place] [phone] * (ABNORMAL) Microalbumin creatinine urine ratio (01/17/2025 1:20 PM EDT) Creatinine, Urine 117.0 mg/dL LAB CHEMISTRY METHOD 01/17/2025 4:19 PM EDT [facility] Microalb, Ur 49.3(H) 0.0 - 29.0 mg/L LAB CHEMISTRY METHOD 01/17/2025 4:19 PM EDT [facility] Microalb/Crea t Ratio 42(H) <30 mg/g creat LAB CHEMISTRY METHOD 01/17/2025 4:19 PM EDT [facility] Urine Urine specimen obtained by clean catch procedure / Unknown Non-blood Collection / Unknown 01/17/2025 1:20 PM EDT 01/17/2025 1:20 PM EDT Shira Romero MACHINE FINISHER LAB URINE ORDERABLES Fi nal Result [facility] [address] [place] [address], [place] [phone] * (ABNORMAL) Thyroid stimulating hormone (01/17/2025 1:20 PM EDT) TSH 4.42(H) 0.40 - 4.00 mcIU/mL LAB CHEMISTRY METHOD 01/17/2025 4:29 PM EDT [facility] Blood Venous blood specimen / Unknown Venipuncture / Unknown 01/17/2025 1:20 PM EDT 01/17/2025 1:20 PM EDT us Shira Romero NP LAB BLOOD ORDERABLES Fi nal Result [facility] [address] [place] [address], [place] [phone] * (ABNORMAL) Hemoglobin A1c (01/17/2025 1:20 PM EDT) [facility] Hemoglobin A1C 7.6(H) <6.5 % LAB CHEMISTRY METHOD 01/17/2025 8:07 PM EDT [facility] Mean Bld Glu Estim. 171 mg/dL LAB CHEMISTRY METHOD 01/17/2025 8:07 PM EDT [facility] Blood Venous blood specimen / Unknown Venipuncture / Unknown 01/17/2025 1:20 PM EDT 01/17/2025 1:20 PM EDT us Shira Romero NP LAB BLOOD ORDERABLES Fi nal Result Performing Organization Address [facility]/ZIP Co de Phone Number [facility] [address] [place] [address], [place] [phone] * Creatine kinase (01/17/2025 1:20 PM EDT) [facility] Total CK 74 22 - 269 unit/L LAB CHEMISTRY METHOD 01/17/2025 4:11 PM EDT [facility] Blood Venous blood specimen / Unknown Venipuncture / Unknown 01/17/2025 1:20 PM EDT 01/17/2025 1:20 PM EDT us Shira Romero NP LAB BLOOD ORDERABLES Fi nal Result [facility] [address] [place] [address], [place] [phone] * (ABNORMAL) Comprehensive metabolic panel (01/17/2025 1:20 PM EDT) [facility] Sodium 138 133 - 145 mmol/L LAB CHEMISTRY METHOD 01/17/2025 4:11 PM EDT [facility] Potassium 4.3 3.5 - 5.5 mmol/L LAB CHEMISTRY METHOD 01/17/2025 4:11 PM [facility] Chloride 100 96 - 110 mmol/L LAB CHEMISTRY METHOD 01/17/2025 4:11 PM [facility] CO2 32 21 - 32 mmol/L LAB CHEMISTRY METHOD 01/17/2025 4:11 PM [facility] Anion Gap 6 3 - 11 LAB CHEMISTRY METHOD 01/17/2025 4:11 PM [facility] Glucose 138(H) 70 - 100 mg/dL LAB CHEMISTRY METHOD 01/17/2025 4:11 PM [facility] BUN 11 5 - 25 mg/dL LAB CHEMISTRY METHOD 01/17/2025 4:11 PM [facility] Creatinine 0.93 0.70 - 1.30 mg/dL LAB CHEMISTRY METHOD 01/17/2025 4:11 PM [facility] eGFR 89 >=60 mL/min/1. 73m2 LAB CHEMISTRY METHOD 01/17/2025 4:11 PM [facility] Comment:Calculation based on the??Chronic Kidney Disease Epidemiology Collaboration (CKD-EPI) equation refit??without adjustment for race. BUN/Creatinine Ratio 11.8 LAB CHEMISTRY METHOD 01/17/2025 4:11 PM [facility] Calcium 9.9 8.5 - 10.5 mg/dL LAB CHEMISTRY METHOD 01/17/2025 4:11 PM [facility] AST (SGOT) 29 10 - 42 unit/L LAB CHEMISTRY METHOD 01/17/2025 4:11 PM [facility] ALT (SGPT) 33 10 - 60 unit/L LAB CHEMISTRY METHOD 01/17/2025 4:11 PM [facility] Alkaline Phosphatase 91 42 - 121 unit/L LAB CHEMISTRY METHOD 01/17/2025 4:11 PM [facility] Total Protein 7.4 6.0 - 8.0 g/dL LAB CHEMISTRY METHOD 01/17/2025 4:11 PM EDT [facility] Albumin 3.5 3.2 - 5.0 g/dL LAB CHEMISTRY METHOD 01/17/2025 4:11 PM EDT [facility] Total Bilirubin 0.4 0.0 - 1.4 mg/dL LAB CHEMISTRY METHOD 01/17/2025 4:11 PM EDT [facility] Blood Venous blood specimen / Unknown Venipuncture / Unknown 01/17/2025 1:20 PM EDT 01/17/2025 1:20 PM EDT Shira Romero NP LAB BLOOD ORDERABLES Fi nal Result [facility]) [facility] [address] [place] [address], from Last 3 Months Insurance MEDICARE MEDICAID - [place] Care Teams Help Desk Agent Relationship Specialty Start Date End Date Luis Enrique Fox, DO [address] [place] [phone] PCP - General Internal Medicine 09/21/17
--- OUTSIDE RECORDS SUMMARY | 2025-03-09 13:55 | XMS_ITS | Data Portability ---
Author Organization [place] - [facility], Allergy Address [address] [place] [address] Assessment Encounter Date Assessment Date Assessment LastModified [...] and Address Organization Details Recorded Time Dysphagia 56237778 Active 2016 Dysphagia , unspecifi ed; Note: Date Diagnosed : 04/02/2017 4:39 PM (R13.10) Not Available [facility] 4 02:46:16 Deviated nasal septum 550901087 Active 2015 Deviated nasal septum; Note: Date Diagnosed : 4 2:42 PM (470) ; Start Date : 4 Deviate d nasal septum; Note: Date Diagnosed : 03/12/2016 3:35 PM (J34.2) Not Available [facility] 4 02:46:12 Sarcoidos is 21936163 Active 2016 Sarcoidos is, unspecifi ed; Note: Date Diagnosed : 04/02/2017 4:40 PM (D86.9) Not Available [facility] 4 02:46:25 Benign neoplasm of tongue 45725496 Active 2016 Benign neoplasm of tongue; Note: Date Diagnosed : 05/05/2017 2:20 PM (D10.1) Not Available [facility] 4 02:46:21 Chronic pharyngit is 731726 Active 2016 Chronic sore throat; Note: Date Diagnosed : 04/02/2017 4:39 PM (J31.2) Not Available [facility] 4 02:46:18 Otorrhea of left ear [id number] 12761 Active 2014 Otorrhea, left ear; Note: Date Diagnosed : 5 1:46 PM (H92.12) Not Available [facility] 4 02:46:13 Acute myringiti s 700603 Active 2013 Acute myringiti s, unspecifi ed; Note: Date Diagnosed : 4 2:42 PM (384.00) Not Available [facility] 4 02:46:19 Obstructi ve sleep apnea syndrome 34038763 Active 2013 SHIVAM; Note: Date Diagnosed : 4 2:42 PM (327.23) Not Available [facility] 4 02:46:23 Allergic rhinitis 25275258 Active 2013 Rhinitis, allergic; Note: Date Diagnosed : 4 2:42 PM (477.9) Not Available [facility] 4 02:46:19 Otorrhea 82564495 Active 2013 Otorrhea; Location: left CMS Risk: moderate risk CMS Treatment : new problem (to examiner) : additiona l workup planned N ote: Date Diagnosed : 4 4:00 PM (388.60) Not Available [facility] 4 02:46:22 Hypertrop hy of nasal turbinate s 14648150 Active 2013 Turbinate hypertrop hy; Note: Date Diagnosed : 4 2:42 PM (478.0) Not Available [facility] 4 02:46:20 Neoplasm of uncertain behavior of tongue 48851752 Active 2016 Neoplasm of uncertain behavior of tongue; Note: Date Diagnosed : 04/02/2017 5:20 PM (D37.02) Not Available [facility] 4 02:46:21 Gastroeso phageal reflux disease without esophagit is 596883950 Active 2016 Gastro-es ophageal reflux disease without esophagit is; Note: Date Diagnosed : 04/02/2017 4:40 PM (K21.9) Not Available [facility] 4 02:46:20 Tympanosc lerosis of left middle ear 53944649463 255549 Active 2024 KODAK MUÑOZ MD [address] [place] [address], [place], [phone] , [facility] 5 15:11:16 Laryngoph aryngeal reflux 895654706 Active 2024 KODAK MUÑOZ MD [address] [place] [address], [place], [phone] , [facility] 5 15:11:29 Problem Notes None recorded. Procedures Surgical History Date Name Laterality Status Provider Name and Address Organization Details Recorded Time arthroscopy of knee completed Penny Haq [facility] 11/03/2024 14:38:36 Imaging Results None recorded. [...] eye drops 11/03 completed Medicati on ID: [id number] D uration Value: 14 Prescri bed By [...] Not Available Not Available No t Available [place] 5 mg-325 mg tablet 1-2 tablet by mouth 11/03 completed Medicati on ID: [id number] D uration Value: 7 Prescri bed By Name: Connie Dallas nd Name: Cortez Velásquez nd Method: E-Prescr ibed Sub s Allowed: subs OK Medic ationGen ericName : [place] Not Available Not Available Not Available fluticaso [...] as directed 03/03 completed Medicati on ID: [id number] B rand Name: Atrovent Send Method: E-Prescr [...] Not Available TobraDex 0.3 %-0.1 % eye drops,[facility] pension 10/08 completed Medicati on ID: [id number] Pr escribed By Name: Connie Dallas nd [...] as directed 11/03 completed Medicati on ID: [id number] D uration Value: 7 Prescri bed By [...] inhalatio n 03/03 completed Medicati on ID: [id number] Br and Name: Flonase Send Method: E-Prescr [...] Reported. Medical History Condition Response Arthritis Y Asthma Y Hypertension Y Past Encounters Encounter ID Performer Location Encounter Start Date Encounter Closed Date Diagnosis/Indication Diagnosis SNOMED-CT Code Diagnosis ICD10 Code Diagnosis Note [id number] KODAK MUÑOZ MD [facility] [address] [place] [address] 11/03/2024 14:21:58 11/03/2024 15:13:09 Tympanosclerosis of left middle ear [id number] 8331590 H74.02 Sarcoidosis 57560047 D86 .9 Laryngopha ryngeal reflux 938828936 K21.9 Health Concerns Section Related Observation LastModified by Organization Detai ls LastModified Time None Recorded Concern Status LastModified by Organization Details LastModified Time None Recorded Advance Directives Directive None Recorded Payers Insurance Date Sequence Insurance Name Policy Number Policy Rosa Covered Member ID Rosa Member ID Guarantor Name 11/03/2024 2 [place] Madi Montgomery [id number] Madi Montgomery 11/03/2024 1 MEDICARE B-[place]: [facility] [employer] Maid Montgomery [id number] Madi Montgomery Notes Date Note Type Note Provider Name and Address Organization Details Recorded Time 11/03/2024 text/html left earURI Dequan leon, then sneezed and felt pop in left earno otorrheagenerally decreased hearing on lefttreated with PO and topical abx reflux - on pantoprazole, still feels breakthrough reflux still 2017 diagnosed sarcoidosis of the tongue basealso 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
--- NOTE | 2025-03-09 13:57 | MHC.OFFVIS ---
Vital Signs 03/09/25 14:03 Height 5 ft 10 in Weight 235 lb 2 oz BMI 33.7 BP 131/87 Blood Pressure Location Rt brachial Position Sitting Pulse 104 H Pulse Source Pulse Oximeter Pulse Oximetry (%) 97 Oxygen Delivery Method Room Air Intake Visit Reasons: Pill Count Intake Note: Madi comes in today for a pill count to oxycodone, patient should have 66 tablets and presents with 76 tablets which he last took today 03/09/25 at 12pm. Pain today 05/03 Manager Heart Failure Required: No Accompanied by: Self / Same As Patient Allergies No Known Allergies Allergy (Verified 03/09/25 14:04) HPI Comments Details: Madi presents to the office today for follow up chronic pain and chronic opioid management. Patient is prescribed oxycodone 10mg po tid prn. He arrived today with the expectation of having 66 pills, he presented 76 pills which were counted in the presence of two staff members and returned to the patient in the original prescription bottle. Pain is reported today as 05/03 and last dose of pain medication was taken at 12pm today. Patient states sleep, mobility and overall level of functioning improved with use of his opioid medication. Denies side effects including somnolence, constipation, urinary retention, itching, dyspnea, rash, dizziness or weakness. Continues with meloxicam as needed. Is using sparingly and only when pain is significant. Prior visit with Dr Turner: h/o neck pain low back pain as well as right shoulder and bilateral knee pain, which have been present for many years.?the neck pain starts midline and radiates to bilateral shoulders, with associated numbness down the entire left arm and moderate pain from the shoulder to the elbow.? He denies any significant weakness of bilateral upper extremities.? In the past he was under the care of Dr. Diaz and managed with morphine 30 mg twice a day as well as multiple injections and RFA for the lumbar spine.? Most recently, he has been seen at [facility].? They have treated him with injections, the last being a few months ago with a left-sided neck injection.? He reports significant pain relief for the 1st month and then slowly his pain returns by the end of the 2nd month.? He reports seeing a neurosurgeon in the past and was told he was not a surgical candidate. He also reports trialing buprenorphine in the past with Dr. Bernaiche, which he states had negative effect on his motor function.? He has tried and failed physical therapy multiple times.? In the past he had good relief with chiropractic manipulation but has not done this for many year.? For quite some time he was in our office on chronic opioid program,?He was suspended in our office from opioid program because he had a pill count which was 20 pills short.? He was suspended for 6 months because he was low risk for opioid addiction.? If he will be found to have in discrepancies with his pill count again his suspension now will before the full year. [facility] Medical History Osteomyelitis of foot Hyponatremia Hypertension Amputation of toe of right foot Diabetic infection of right foot Diabetes mellitus type 2, insulin dependent Chronic HFrEF (heart failure with reduced ejection fraction) Spondylosis of cervical spine with radiculopathy Myofascial pain Osteoarthritis of knees, bilateral Osteoarthritis of right shoulder Cervical spinal stenosis Arthritis of left hip Review of Systems Const All systems reviewed & are unremarkable except as noted in HPI and below Physical Exam Vital Signs: Last Vital Signs Pulse 104 H 03/09/25 14:03 BP 131/87 03/09/25 14:03 Pulse Ox 97 03/09/25 14:03 Oxygen Delivery Method Room Air 03/09/25 14:03 BMI result Body Mass Index 33.7 General: awake, oriented. Answers questions appropriately. Appears tired. Speech clear. Skin: warm, dry, intact HEENT: Normocephalic. Hearing intact. Cardiac: External chest normal in appearance. Respiratory: No cough, audible wheezing or stridor. Abdomen: without gross distension. MS: No obvious swelling or deformity Able to transition from sit to stand unassisted. Neurological: Oriented to person, place, time and situation. Thought process intact. Psychiatric: Appropriate mood and affect. Good judgment and insight. Const Other: Assessment & Plan Assessment & Plan (1) Spondylosis of cervical spine with radiculopathy: Code(s): M47.22 - Other spondylosis with radiculopathy, cervical region Category: Medical (2) Myofascial pain: Code(s): M79.18 - Myalgia, other site Category: Medical (3) Osteoarthritis of knees, bilateral: Code(s): M17.0 - Bilateral primary osteoarthritis of knee Category: Medical (4) Osteoarthritis of right shoulder: Code(s): M19.011 - Primary osteoarthritis, right shoulder Category: Medical (5) Arthritis of left hip: Code(s): M16.12 - Unilateral primary osteoarthritis, left hip Category: Medical Plan [place] was reviewed and without concerns. No obvious signs of diversion, abuse or misuse of the opioid medications. Prescription for oxycodone 10mg po tid prn sent C/W methocarbamol 500 mg p.o. twice daily as needed. Patient advised on cautions for use All questions and concerns have been answered and patient agrees with the plan. Follow-up in the office in 1 month, sooner if needed. Note: He was suspended from the opioid program previously because he was 20 pills short. His risk was mild and he was suspended for 6 month. If there is a second violation his suspension will be for a full year. Medications: Refilled oxycodone Partial Fill upon patient request. 10 mg PO TID PRN 90 tabs 0RF pain 30 days M17.0 - Bilateral primary osteoarthritis of knee, M19.011 - Primary osteoarthritis, right shoulder, M48.02 - Spinal stenosis, cervical region, M79.18 - Myalgia, other site Coding Level of Care Code Est Pt Level 3 (10384) Complex EM visit Add On G2211 Diagnoses Spondylosis of cervical spine with radiculopathy M47.22 Myofascial pain M79.18 Osteoarthritis of knees, bilateral M17.0 Osteoarthritis of right shoulder M19.011 Arthritis of left hip M16.12
[2025-03-09 14:03] VITALS: BP 131/87; PULSE 104; O2SAT 97; BMI 33.7
== END 2025-03-09 14:18 | disposition home or self-care (01) ==
LOC: HO.PMC 13:50
PROVIDERS: PCP Internal Medicine; Visit Provider Registered Nurse Emergency
DX: M47.22 Other spondylosis with radiculopathy, cervical region (principal); M79.18 Myalgia, other site; M17.0 Bilateral primary osteoarthritis of knee; M19.011 Primary osteoarthritis, right shoulder; M16.12 Unilateral primary osteoarthritis, left hip
CPT/HCPCS: 99213; G2211

== ENCOUNTER → 2025-03-09 13:50 | Outpatient (BNVA) | payer MEDICARE, MEDICAID, SELFPAY | PROVIDERS: PCP Internal Medicine; Visit Provider Registered Nurse Emergency | DX: Z51.81 Encounter for therapeutic drug level monitoring (principal); F11.20 Opioid dependence, uncomplicated; M47.22 Other spondylosis with radiculopathy, cervical region; M79.18 Myalgia, other site; M17.0 Bilateral primary osteoarthritis of knee; M19.011 Primary osteoarthritis, right shoulder; M16.12 Unilateral primary osteoarthritis, left hip | CPT/HCPCS: 99212 ==

== ENCOUNTER 2025-04-18 11:30 | Outpatient (AMB) | payer MEDICARE, MEDICAID, SELFPAY ==
--- NOTE | 2025-04-18 11:35 | A.OFFVIS_ITS ---
Vital Signs 04/18/25 11:36 Height 5 ft 10 in Weight 235 lb BMI 33.7 BP 120/66 Blood Pressure Location Rt brachial Position Sitting Respiration 16 Pulse 95 Pulse Source Pulse Oximeter Pulse Oximetry (%) 96 Oxygen Delivery Method Room Air Intake Visit Reasons: pill count Intake Note: Patient is here for a routine pill count. Per direction patient should have 45 pill. He presented 59 pills. Took last pill between 9 - 10am. 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 Patient is prescribed oxycodone 10mg po tid prn. He arrived today with the expectation of having 45 pills, he presented 59 pills which were counted in the presence of two staff members and returned to the patient in the original prescription bottle. Pain is reported today as 8/10 and last dose of pain medication was taken at 9am today. Denies side effects including somnolence, constipation, urinary retention, itching, dyspnea, rash, dizziness or weakness. Prior visit with Dr Turner: h/o neck pain low back pain as well as right shoulder and bilateral knee pain, which have been present for many years.?the neck pain starts midline and radiates to bilateral shoulders, with associated numbness down the entire left arm and moderate pain from the shoulder to the elbow.? He denies any significant weakness of bilateral upper extremities.? In the past he was under the care of Dr. Diaz and managed with morphine 30 mg twice a day as well as multiple injections and RFA for the lumbar spine.? Most recently, he has been seen at [facility].? They have treated him with inject ions, the last being a few months ago with a left-sided neck injection.? He reports significant pain relief for the 1st month and then slowly his pain returns by the end of the 2nd month.? He reports seeing a neurosurgeon in the past and was told he was not a surgical candidate. He also reports trialing buprenorphine in the past with Dr. Diaz, which he states had negative effect on his motor function.? He has tried and failed physical therapy multiple times.? In the past he had good relief with chiropractic manipulation but has not done this for many year.? For quite some time he was in our office on chronic opioid program,?He was suspended in our office from opioid program because he had a pill count which was 20 pills short.? He was suspended for 6 months because he was low risk for opioid addiction.? If he will be found to have in discrepancies with his pill count again his suspension now will before the full year. [facility] Medical History Osteomyelitis of foot Hyponatremia Hypertension Amputation of toe of right foot Diabetic infection of right foot Diabetes mellitus type 2, insulin dependent Chronic HFrEF (heart failure with reduced ejection fraction) Spondylosis of cervical spine with radiculopathy Myofascial pain Osteoarthritis of knees, bilateral Osteoarthritis of right shoulder Cervical spinal stenosis Arthritis of left hip Review of Systems Const All systems reviewed & are unremarkable except as noted in HPI and below Physical Exam Vital Signs: Last Vital Signs Pulse 95 04/18/25 11:36 Resp 16 04/18/25 11:36 BP 120/66 04/18/25 11:36 Pulse Ox 96 04/18/25 11:36 Oxygen Delivery Method Room Air 04/18/25 11:36 BMI result Body Mass Index 33.7 General: awake, oriented. Answers questions appropriately. Appears tired. Speech clear. Skin: warm, dry, intact HEENT: Normocephalic. Hearing intact. Cardiac: External chest normal in appearance. Respiratory: No cough, audible wheezing or stridor. Abdomen: without gross distension. MS: No obvious swelling or deformity Able to transition from sit to stand unassisted. Neurological: Oriented to person, place, time and situation. Thought process intact. Psychiatric: Appropriate mood and affect. Good judgment and insight. Const Other: Assessment & Plan Assessment & Plan (1) Spondylosis of cervical spine with radiculopathy: Code(s): M47.22 - Other spondylosis with radiculopathy, cervical region Category: Medical (2) Myofascial pain: Code(s): M79.18 - Myalgia, other site Category: Medical (3) Osteoarthritis of knees, bilateral: Code(s): M17.0 - Bilateral primary osteoarthritis of knee Category: Medical (4) Osteoarthritis of right shoulder: Code(s): M19.011 - Primary osteoarthritis, right shoulder Category: Medical (5) Arthritis of left hip: Code(s): M16.12 - Unilateral primary osteoarthritis, left hip Category: Medical Plan [place] was reviewed and without concerns. No obvious signs of diversion, abuse or misuse of the opioid medications. Prescription for oxycodone 10mg po tid prn sent All questions and concerns have been answered and patient agrees with the plan. Follow-up in the office in 1 month, sooner if needed. Note: He was suspended from the opioid program previously because he was 20 pills short. His risk was mild and he was suspended for 6 month. If there is a second violation his suspension will be for a full year. Medications: Refilled oxycodone Partial Fill upon patient request. 10 mg PO TID PRN 90 tabs 0RF pain 30 days M17.0 - Bilateral primary osteoarthritis of knee, M19.011 - Primary osteoarthritis, right shoulder, M48.02 - Spinal stenosis, cervical region, M79.18 - Myalgia, other site Coding Level of Care Code Est Pt Level 3 (33817) Complex EM visit Add On G2211 Diagnoses Spondylosis of cervical spine with radiculopathy M47.22 Myofascial pain M79.18 Osteoarthritis of knees, bilateral M17.0 Osteoarthritis of right shoulder M19.011 Arthritis of left hip M16.12
[2025-04-18 11:36] VITALS: BP 120/66; PULSE 95; RESP 16; O2SAT 96; BMI 33.7
--- OUTSIDE RECORDS SUMMARY | 2025-04-18 13:43 | XMS_ITS | Clinical Summary ---
Author Organization [address] [facility] Address [address] [place] [address] Phone Care Team Providers Care Assistant Inventory Manager Name Role Phone DereckLuis Enrique robertson Primary Care Provider [phone] Social History Tobacco Use Types Packs/Day Years [...] Years (1 of 2 - PCV) 1975 Depression Screening 09/27/2022 Falls Risk Assessment 09/27/2022 Hepatitis C Screening 09/27/2022 Medicare Annual Wellness Visit 09/27/2022 Social Influencers of Health Screening 09/27/2022 Zoster Vaccines (2 of 2) 05/26/2024 03/31/2024 COVID-19 Vaccine ( season) 2025 08/03/2024, 07/30/2023, 01/21/2023, Additional history exists Diabetes: Blood Sugar Control Test (HGBA1C) 07/20/2025 01/17/2025 Diabetes: Annual Urine Albumin-Creatinine Ratio (uACR) 01/17/2026 01/17/2025 Diabetes: Annual GFR (Glomerular Filtration Rate) 03/22/2026 03/22/2025, 01/17/2025 Hypertension/CHF/CAD Annual BMP Blood Test 03/22/2026 03/22/2025, 01/17/2025 Cholesterol Screening (Lipid Panel) 01/17/2030 01/17/2025 RSV Immunization Adult Patients (1 - 1-dose 75+ series) 2031 Colorectal Cancer Screening: Colonoscopy 04/04/2035 04/04/2025 Influenza Vaccine Completed 06/22/2024, , 07/27/2022 HIB [...] Procedure Name Priority Date/Time Associated Diagnosis Comments EXTERNAL COLONOSCOPY REPORT Routine 04/04/2025 1:43 PM EDT CBC WITH AUTO DIFFERENTIAL Routine 03/22/2025 2:28 PM EDT Dizziness and giddiness Fatigue VITAMIN B12 Routine 03/22/2025 2:28 PM EDT Dizziness and giddiness Fatigue BORRELIA BURGDORFERI ANTIBODY Routine 03/22/2025 2:28 PM EDT Dizziness and giddiness Fatigue EHRLICHIA CHAFFEENSIS ANTIBODIES, IGG AND IGM Routine 03/22/2025 2:28 PM EDT Dizziness and giddiness Fatigue BABESIA MICROTI ANTIBODIES, IGG AND IGM Routine 03/22/2025 2:28 PM EDT Dizziness and giddiness Fatigue ANAPLASMA PHAGOCYTOPHILUM ANTIBODIES, IGG AND IGM Routine 03/22/2025 2:28 PM EDT Dizziness and giddiness Fatigue COMPREHENSIVE METABOLIC PANEL Routine 03/22/2025 2:28 PM EDT Dizziness and giddiness Fatigue CBC AND DIFFERENTIAL Routine 03/22/2025 2:28 PM EDT Dizziness and giddiness Fatigue THYROID STIMULATING HORMONE Routine 03/22/2025 2:28 PM EDT Dizziness and giddiness Fatigue CBC WITH AUTO DIFFERENTIAL Routine 01/17/2025 1:20 [...] Hyperlipemia from Last 3 Months Results * External Colonoscopy Report (04/04/2025 1:43 PM EDT) Anatomical Region Laterality Modality Endoscopy us Historical Provider GI~PROCEDURE ORDERABLES F inal Result * Babesia microti antibodies, IGG and IGM (03/22/2025 2:28 PM EDT) Babesia microti IgG Antibodies <1:64 03/29/2025 10:40 PM EDT [facility] Babesia microti IgM Antibodies <1:20 03/29/2025 10:40 PM EDT [facility] Babesia microti Interpretation SEE NOTE 03/29/2025 10:40 PM EDT [facility] Comment: ANTIBODY NOT DETECTED REFERENCE RANGES: IgG <1:64 IgM <1:20 Elevated antibody levels to B. microti indicate exposure to the organism. Human babesiosis infection is transmitted by the bite of an infected Ixodes tick or less frequently from transfusion with blood from an infected donor. Definitive diagnosis is made by identifying intraerythrocytic organisms in peripheral blood. In patients with low parasitemia, antibody detection by IFA is recommended. IgG levels greater than or equal to 1:1024 can be detected in acute phase patients with parasites in blood smears. The IFA assay can be used as a seroepidemiologic tool to study the frequency and distribution of B. microti in endemic areas especially in persons with mixed infections also involving Borrelia burgdorferi. This test was developed and its analytical performance characteristics have been determined by [facility]. It has not been cleared or approved by FDA. This assay has been validated pursuant to the CLIA regulations and is used for clinical purposes. Test Performed at: [facility] [id number] [place] [phone] Elias Shook MD, PhD Blood Venous blood specimen / Unknown Venipuncture / Unknown 03/22/2025 2:28 PM EDT 03/22/2025 2:28 PM EDT Shira Romero TRUCK DISPATCHER LAB BLOOD ORDERABLES Fi nal Result MARGUERITE [address] [place] [address] * Anaplasma phagocytophilum antibodies, IGG and IGM (03/22/2025 2:28 PM EDT) Anaplasma phagocytophilum IgG Ab <1:64 <1:64 03/28/2025 9:08 PM EDT [facility] Anaplasma phagocytophilum IgM Ab <1:20 <1:20 03/28/2025 9:08 PM EDT [facility] Anaplasma phagocytophilum Interpretation SEE BELOW 03/28/2025 9:08 PM EDT [facility] Comment:Antibody Not Detecte d Comment SEE BELOW 03/28/2025 9:08 PM EDT [facility] Comment: Anaplasma phagocytophilum is the tick-borne agent causing Human Granulocytic Ehrlichiosis (HGE). HGE is distinct and separate from Human Monocytic Ehrlichiosis (HME), caused by Ehrlichia chaffeensis. Serologic crossreactivity between A. phagocyto- philum and E. chaffeensis is minimal (5-15%). This test was developed and its analytical performance characteristics have been determined by [employer] [place] It has not been cleared or approved by the U.S. Food and Drug Administration. This assay has been validated pursuant to the CLIA regulations and is used for clinical purposes. Test Performed by [facility] [employer] [place], [address] [place] [address] Brock Lawrence M.D., Ph.D., Director of Laboratories , CLIA [id number] Blood Venous blood specimen / Unknown Venipuncture / Unknown 03/22/2025 2:28 PM EDT 03/22/2025 2:28 PM EDT Shira Romero NP LAB BLOOD ORDERABLES Fi nal Result MARGUERITE [address] [place] [address] * (ABNORMAL) CBC auto differential (03/22/2025 2:28 PM EDT) Only the most recent of2 resultswithin the time period is included. [facility] [address] WBC 7.4 4.8 - 10.8 K/mcL LAB HEMETOLOGY METHOD 03/22/2025 7:24 PM EDT [facility] RBC 4.20(L) 4.50 - 5.50 M/mcL LAB [facility]OLOG[facility] Hemoglobin 13.6 13.5 - 17.5 g/dL LAB HEMETOLOGY METHOD 03/22/2025 7:24 PM EDT [facility] Hematocrit 40.5(L) 42.0 - 54.0 % LAB HEMETOLOGY METHOD 03/22/2025 7:24 PM EDT [facility] MCV 95.5 79.0 - 98.0 FL LAB HEMETOLOGY METHOD 03/22/2025 7:24 PM EDT [facility] MCH 32.1(H) 27.0 - 32.0 pcg LAB HEMETOLOGY METHOD 03/22/2025 7:24 PM EDT [facility] MCHC 33.6 32.0 - 37.0 g/dL LAB HEMETOLOGY METHOD 03/22/2025 7:24 PM EDT [facility] RDW 12.6 11.0 - 15.0 % LAB HEMETOLOGY METHOD 03/22/2025 7:24 PM EDT [facility] Platelets 298 130 - 400 K/mcL LAB HEMETOLOGY METHOD [facility] MPV 9.8 7.0 - 11.0 FL LAB HEMETOLOGY METHOD 03/22/2025 7:24 PM EDT [facility] NRBC 0.0 <1.0 % LAB HEMETOLOGY METHOD 03/22/2025 7:24 PM [facility] NRBC Absolute 0.00 <0.10 K/mcL LAB HEMETOLOGY METHOD 03/22/2025 7:24 PM [facility] Neutrophils Relative 55.5 % LAB HEMETOLOGY METHOD 03/22[facility]2025 [facility] Lymphocytes Relative 28.7 % LAB HEMETOLOGY METHOD 03/22/2025 7:24 PM [facility] Monocytes Relative 11.0 % LAB HEMETOLOGY METHOD 03/22/2025 7:24 PM [facility] Eosinophils Relative 3.7 % LAB HEMETOLOGY METHOD 03/22/2025 7:24 PM [facility] Basophils Relative 0.8 % LAB HEMETOLOGY METHOD 03/22/2025 7:24 PM [facility] Immature Granulocytes Relative 0.3 % LAB HEMETOLOGY METHOD 03/22/2025 7:24 PM [facility] Neutrophils Absolute 4.10 1.50 - 7.00 K/mcL LAB HEMETOLOGY METHOD 03/22/2025 7:24 PM [facility] Lymphocytes Absolute 2.12 1.00 - 5.00 K/mcL LAB HEMETOLOGY METHOD 03/22/2025 7:24 PM [facility] Monocytes Absolute 0.81 0.20 - 1.00 K/mcL LAB HEMETOLOGY METHOD 03/22/2025 7:24 PM [facility] Eosinophils Absolute 0.27 0.00 - 0.50 K/mcL LAB HEMETOLOGY METHOD 03/22/2025 7:24 PM [facility] Basophils Absolute 0.06 0.00 - 0.20 K/mcL LAB HEMETOLOGY METHOD 03/22/2025 7:24 PM EDT [facility] Immature Granulocytes Absolute 0.02 0.00 - 0.03 K/[facility] LAB HEMETOLOGY METHOD 03/22/2025 7:24 PM EDT [facility] Blood Venous blood specimen / Unknown Venipuncture / Unknown 03/22/2025 2:28 PM EDT 03/22/2025 2:28 PM EDT Shira Romero TRUCK DISPATCHER LAB BLOOD ORDERABLES Fi nal Result [facility]) [facility] [address] [place] [address], * Ehrlichia chaffeensis antibodies, IgG and IgM (03/22/2025 2:28 PM EDT) Ehrlichia chaffeensis Ab IgG <1:64 <1:64 03/28/2025 9:08 PM EDT [facility] Ehrlichia chaffeensis Ab IgM <1:20 <1:20 03/28/2025 9:08 PM EDT [facility] Interpretation SEE BELOW 03/28/2025 9:08 PM EDT [facility] Comment:Antibody Not Detecte d Comment SEE BELOW 03/28/2025 9:08 PM EDT [facility] Comment: Ehrlichia chaffeenis has been identified as the causative agent of Human Monocytic Ehrlichiosis (HME). Infected individuals produce specific antibodies to E. chaffeensis that can be detected by an immuno- fluorescent antibody (IFA) test. Single IgG IFA titers of 1:64 or greater indicate exposure to E. chaffeensis. A four-fold rise in IgG titers between acute and convalescent samples and/or the presence of IgM antibody against E. chaffeensis suggest recent or current infection. This test was developed and its analytical performance characteristics have been determined by [facility], [place], [place]. It has not been cleared or approved by the U.S. Food and Drug Administration. This assay has been validated pursuant to the CLIA regulations and is used for clinical purposes. Test Performed by [facility], [facility], [address] [place] [address] Brock Lawrence M.D., Ph.D., Director of Laboratories , CLIA [id number] Blood Venous blood specimen / Unknown Venipuncture / Unknown 03/22/2025 2:28 PM EDT 03/22/2025 2:28 PM EDT Shira Romero NP LAB BLOOD ORDERABLES Fi nal Result Performing Organization Address [facility]/ZIP Co de Phone Number MARGUERITE [address] [place] [place] [address] * (ABNORMAL) Borrelia burgdorferi antibody (03/22/2025 2:28 PM EDT) [facility] [address] Lyme IgG Antibody Positive(A) Negative LAB CHEMISTRY METHOD 03/23/2025 12:11 PM EDT [facility] Lyme IgM Antibody Negative Negative LAB CHEMISTRY METHOD 03/23/2025 12:11 PM EDT [facility] Lyme Ab Positive(A) Negative LAB CHEMISTRY METHOD 03/23/2025 12:11 PM EDT [facility] Comment: Results are consistent with B. burgdorferi (Lyme disease) in the recent or remote past. IgG-class antibodies may remain detectable for months to years following resolution of infection. Results SHOULD NOT be used to monitor or establish adequate response to therapy. Response to therapy is confirmed through resolution of clinical symptoms; additional laboratory testing SHOULD NOT be performed. If both tests are equivocal consider repeat testing in 7-14 days if clinically warranted Blood Venous blood specimen / Unknown Venipuncture / Unknown 03/22/2025 2:28 PM EDT 03/22/2025 2:28 PM EDT Shira Romero NP LAB BLOOD ORDERABLES Fi nal Result Performing Organization Address City/[facility]/ZIP Co de Phone Number [facility] [address] [place] [address], [place] [phone] * Thyroid stimulating hormone (03/22/2025 2:28 PM EDT) Only the most recent of2 resultswithin the time period is included. Pathologist [facility] TSH 2.52 0.40 - 4.00 mcIU/mL LAB CHEMISTRY METHOD 03/22/2025 8:59 PM EDT [facility] Blood Venous blood specimen / Unknown Venipuncture / Unknown 03/22/2025 2:28 PM EDT 03/22/2025 2:28 PM EDT us Shira Romero TRUCK DISPATCHER LAB BLOOD ORDERABLES Fi nal Result Performing Organization Address City/[facility]/ZIP Co de Phone Number [facility] [address] [place] [address], * Vitamin B12 (03/22/2025 2:28 PM EDT) [facility] [address] Vitamin B-12 729 250 - 900 pcg/mL LAB CHEMISTRY METHOD 03/22/2025 8:07 PM EDT [facility] Blood Venous blood specimen / Unknown Venipuncture / Unknown 03/22/2025 2:28 PM EDT 03/22/2025 2:28 PM EDT Shira Romero TRUCK DISPATCHER LAB BLOOD ORDERABLES Fi nal Result Performing Organization Address City/[facility]/ZIP Co de Phone Number [facility] [address] [place] [address], [place] [phone] * (ABNORMAL) Comprehensive metabolic panel (03/22/2025 2:28 PM EDT) Only the most recent of2 resultswithin the time period is included. Pathologist [facility] Sodium 137 133 - 145 mmol/L LAB CHEMISTRY METHOD 03/22/2025 8:07 PM EDT [facility] Potassium 4.4 3.5 - 5.5 mmol/L LAB CHEMISTRY METHOD 03/22/2025 8:07 PM [facility] Chloride 99 96 - 110 mmol/L LAB CHEMISTRY METHOD 03/22/2025 8:07 PM [facility] CO2 31 21 - 32 mmol/L LAB CHEMISTRY METHOD 03/22/2025 8:07 PM [facility] Anion Gap 7 3 - 11 LAB CHEMISTRY METHOD 03/22/2025 8:07 PM [facility] Glucose 199(H) 70 - 100 mg/dL LAB CHEMISTRY METHOD 03/22/2025 8:07 PM [facility] BUN 16 5 - 25 mg/dL LAB CHEMISTRY METHOD 03/22/2025 8:07 PM [facility] Creatinine 1.04 0.70 - 1.30 mg/dL LAB CHEMISTRY METHOD 03/22/2025 8:07 PM [facility] eGFR 78 >=60 mL/min/1. 73m2 LAB CHEMISTRY METHOD 03/22/2025 8:07 PM [facility] Comment:Calculation based on the Chronic Kidney Disease Epidemiology Collaboration (CKD-EPI) equation refit without adjustment for race. BUN/Creatinine Ratio 15.4 LAB CHEMISTRY METHOD 03/22/2025 8:07 PM [facility] Calcium 9.6 8.5 - 10.5 mg/dL LAB CHEMISTRY METHOD 03/22/2025 8:07 PM [facility] AST (SGOT) 60(H) 10 - 42 unit/L LAB CHEMISTRY METHOD 03/22/2025 8:07 PM [facility] ALT (SGPT) 65(H) 10 - 60 unit/L LAB CHEMISTRY METHOD 03/22/2025 8:07 PM [facility] Alkaline Phosphatase 87 42 - 121 unit/L LAB CHEMISTRY METHOD 03/22/2025 8:07 PM EDT [facility] Total Protein 7.5 6.0 - 8.0 g/dL LAB CHEMISTRY METHOD 03/22/2025 8:07 PM EDT [facility] Albumin 3.3 3.2 - 5.0 g/dL LAB CHEMISTRY METHOD 03/22/2025 8:07 PM EDT [facility] Total Bilirubin 0.4 0.0 - 1.4 mg/dL LAB CHEMISTRY METHOD 03/22/2025 8:07 PM EDT [facility] Blood Venous blood specimen / Unknown Venipuncture / Unknown 03/22/2025 2:28 PM EDT 03/22/2025 2:28 PM EDT Shira Romero NP LAB BLOOD ORDERABLES Fi nal Result Performing Organization Address [facility]/ZIP Co de Phone Number [facility] [address] [place] [address], * Prostate specific antigen screen (01/17/2025 1:20 PM EDT) PSA 1.17 0.00 - 4.00 ng/mL LAB CHEMISTRY METHOD 01/17/2025 4:29 PM EDT [facility] Blood Venous blood specimen / Unknown Venipuncture / Unknown 01/17/2025 1:20 PM EDT 01/17/2025 1:20 PM EDT Narrative [facility] - 01/17/2025 4:29 PM EDT The Siemens Advia Centaur Chemiluminescent Immunoassay is used. Results obtained with different assay methods or kits cannot be used interchangeably. Results cannot be interpreted as absolute evidence of the presence or absence of malignant disease. Shira Romero NP LAB BLOOD ORDERABLES Fi nal Result Performing Organization Address [facility]/ZIP Co de Phone Number [facility] [address] [place] [address], [place] [phone] * (ABNORMAL) Lipid panel with reflex to direct LDL (01/17/2025 1:20 PM EDT) Cholesterol 145 0 - 200 mg/dL LAB CHEMISTRY METHOD 01/17/2025 4:11 PM EDT [facility] Triglycerides 237(H) 0 - 150 mg/dL LAB CHEMISTRY METHOD 01/17/2025 4:11 PM EDT [facility] HDL 41 >=40 mg/dL LAB CHEMISTRY METHOD 01/17/2025 4:11 PM EDT [facility] LDL Calculated 57 0 - 100 mg/dL LAB CHEMISTRY METHOD 01/17/2025 4:11 PM EDT [facility] VLDL Cholesterol Olegario 47.4 mg/dL LAB CHEMISTRY METHOD 01/17/2025 4:11 PM EDT [facility] Non HDL Chol. (LDL+VLDL) 104 <145 mg/dL LAB CHEMISTRY METHOD 01/17/2025 4:11 PM EDT [facility] Chol/HDL Ratio 3.5 0.0 - 4.4 LAB CHEMISTRY METHOD 01/17/2025 4:11 PM EDT [facility] Blood Venous blood specimen / Unknown Venipuncture / Unknown 01/17/2025 1:20 PM EDT 01/17/2025 1:20 PM EDT Shira Romero TRUCK DISPATCHER LAB BLOOD ORDERABLES Fi nal Result [facility] [address] [place] [address], * (ABNORMAL) Microalbumin creatinine urine ratio (01/17/2025 1:20 PM EDT) Creatinine, Urine 117.0 mg/dL LAB CHEMISTRY METHOD 01/17/2025 4:19 PM EDT [facility] Microalb, Ur 49.3(H) 0.0 - 29.0 mg/L LAB CHEMISTRY METHOD 01/17/2025 4:19 PM EDT [facility] Microalb/Crea t Ratio 42(H) <30 mg/g creat LAB CHEMISTRY METHOD 01/17/2025 4:19 PM EDT [facility] Urine Urine specimen obtained by clean catch procedure / Unknown Non-blood Collection / Unknown 01/17/2025 1:20 PM EDT 01/17/2025 1:20 PM EDT us Shira Romero TRUCK DISPATCHER LAB URINE ORDERABLES Fi nal Result Performing Organization Address [facility]/ZIP Co de Phone Number [facility] [address] [place] [address], [place] [phone] * (ABNORMAL) Hemoglobin A1c (01/17/2025 1:20 PM EDT) Pathologist [facility] Hemoglobin A1C 7.6(H) <6.5 % LAB CHEMISTRY METHOD 01/17/2025 8:07 PM EDT [facility] Mean Bld Glu Estim. 171 mg/dL LAB CHEMISTRY METHOD 01/17/2025 8:07 PM EDT [facility] Blood Venous blood specimen / Unknown Venipuncture / Unknown 01/17/2025 1:20 PM EDT 01/17/2025 1:20 PM EDT us Shira Romero TRUCK DISPATCHER LAB BLOOD ORDERABLES Fi nal Result [facility] [address] [place] [address], [place] [phone] * Creatine kinase (01/17/2025 1:20 PM EDT) Total CK 74 22 - 269 unit/L LAB CHEMISTRY METHOD 01/17/2025 4:11 PM EDT [facility] Blood Venous blood specimen / Unknown Venipuncture / Unknown 01/17/2025 1:20 PM EDT 01/17/2025 1:20 PM EDT us Shira Romero TRUCK DISPATCHER LAB BLOOD ORDERABLES Fi nal Result [facility] [address] [place] [address], from Last 3 Months Insurance MEDICARE MEDICAID - [place] Care Teams Assistant Inventory Manager Relationship Specialty Start Date End Date Luis Enrique Fox DO [address] [place] [phone] PCP - General Internal Medicine 09/21/17
== END 2025-04-18 12:00 | disposition home or self-care (01) ==
LOC: HO.PMC 11:31
PROVIDERS: PCP Internal Medicine; Visit Provider Registered Nurse Emergency
DX: M47.22 Other spondylosis with radiculopathy, cervical region (principal); M79.18 Myalgia, other site; M17.0 Bilateral primary osteoarthritis of knee; M19.011 Primary osteoarthritis, right shoulder; M16.12 Unilateral primary osteoarthritis, left hip
CPT/HCPCS: 99213; G2211

== ENCOUNTER → 2025-04-18 11:30 | Outpatient (BNVA) | payer MEDICARE, MEDICAID, SELFPAY | PROVIDERS: PCP Internal Medicine; Visit Provider Registered Nurse Emergency | DX: Z51.81 Encounter for therapeutic drug level monitoring (principal); M47.22 Other spondylosis with radiculopathy, cervical region; M79.18 Myalgia, other site; M17.0 Bilateral primary osteoarthritis of knee; M19.011 Primary osteoarthritis, right shoulder; M16.12 Unilateral primary osteoarthritis, left hip | CPT/HCPCS: 99212 ==

== ENCOUNTER 2025-05-16 13:26 | Outpatient (AMB) | payer MEDICARE, MEDICAID, SELFPAY ==
--- NOTE | 2025-05-16 13:35 | A.OFFVIS_ITS ---
Vital Signs 05/16/25 13:37 Height 5 ft 10 in Weight 233 lb BMI 33.4 BP 115/72 Blood Pressure Location Rt brachial Position Sitting Respiration 16 Pulse 93 Pulse Source Pulse Oximeter Pulse Oximetry (%) 95 Oxygen Delivery Method Room Air Intake Visit Reasons: PILL COUNT Intake Note: Patient here for a routine pill count of oxycodone. Per direction patient should have 63 pills. Patient presented 68 pills. Last took 10am. Services Coordinator Required: No Accompanied by: Self / Same As Patient Allergies No Known Allergies Allergy (Verified 05/16/25 13:49) HPI Comments Details: Madi presents to the office today for follow up chronic pain and chronic opioid management. Patient is prescribed oxycodone 10mg po tid prn. He arrived today with the expectation of having 63 pills, he presented 68 pills which were counted in the presence of two staff members and returned to the patient in the original prescription bottle. Pain is reported today as 7/10 and last dose of pain medication was taken at 10am today. Denies side effects including somnolence, constipation, urinary retention, itching, dyspnea, rash, dizziness or weakness. Prior visit with Dr Turner: h/o neck pain low back pain as well as right shoulder and bilateral knee pain, which have been present for many years.?the neck pain starts midline and radiates to bilateral shoulders, with associated numbness down the entire left arm and moderate pain from the shoulder to the elbow.? He denies any significant weakness of bilateral upper extremities.? In the past he was under the care of Dr. Diaz and managed with morphine 30 mg twice a day as well as multiple injections and RFA for the lumbar spine.? Most recently, he has been seen at [facility].? They have treated him with inject ions, the last being a few months ago with a left-sided neck injection.? He reports significant pain relief for the 1st month and then slowly his pain returns by the end of the 2nd month.? He reports seeing a neurosurgeon in the past and was told he was not a surgical candidate. He also reports trialing buprenorphine in the past with Dr. Diaz, which he states had negative effect on his motor function.? He has tried and failed physical therapy multiple times.? In the past he had good relief with chiropractic manipulation but has not done this for many year.? For quite some time he was in our office on chronic opioid program,?He was suspended in our office from opioid program because he had a pill count which was 20 pills short.? He was suspended for 6 months because he was low risk for opioid addiction.? If he will be found to have in discrepancies with his pill count again his suspension now will before the full year. [facility] Medical History Osteomyelitis of foot Hyponatremia Hypertension Amputation of toe of right foot Diabetic infection of right foot Diabetes mellitus type 2, insulin dependent Chronic HFrEF (heart failure with reduced ejection fraction) Spondylosis of cervical spine with radiculopathy Myofascial pain Osteoarthritis of knees, bilateral Osteoarthritis of right shoulder Cervical spinal stenosis Arthritis of left hip Review of Systems Const All systems reviewed & are unremarkable except as noted in HPI and below Physical Exam Vital Signs: Last Vital Signs Pulse 93 05/16/25 13:37 Resp 16 05/16/25 13:37 BP 115/72 05/16/25 13:37 Pulse Ox 95 05/16/25 13:37 Oxygen Delivery Method Room Air 05/16/25 13:37 BMI result Body Mass Index 33.4 General: awake, oriented. Answers questions appropriately. Appears tired. Speech clear. Skin: warm, dry, intact HEENT: Normocephalic. Hearing intact. Cardiac: External chest normal in appearance. Respiratory: No cough, audible wheezing or stridor. Abdomen: without gross distension. MS: No obvious swelling or deformity Able to transition from sit to stand unassisted. Neurological: Oriented to person, place, time and situation. Thought process intact. Psychiatric: Appropriate mood and affect. Good judgment and insight. Assessment & Plan Assessment & Plan (1) Spondylosis of cervical spine with radiculopathy: Code(s): M47.22 - Other spondylosis with radiculopathy, cervical region Category: Medical (2) Myofascial pain: Code(s): M79.18 - Myalgia, other site Category: Medical (3) Osteoarthritis of knees, bilateral: Code(s): M17.0 - Bilateral primary osteoarthritis of knee Category: Medical (4) Osteoarthritis of right shoulder: Code(s): M19.011 - Primary osteoarthritis, right shoulder Category: Medical (5) Arthritis of left hip: Code(s): M16.12 - Unilateral primary osteoarthritis, left hip Category: Medical Plan [place] was reviewed and without concerns. No obvious signs of diversion, abuse or misuse of the opioid medications. Prescription for oxycodone 10mg po tid prn sent All questions and concerns have been answered and patient agrees with the plan. Follow-up in the office in 1 month, sooner if needed. Note: He was suspended from the opioid program previously because he was 20 pil ls short. His risk was mild and he was suspended for 6 month. If there is a second violation his suspension will be for a full year. Medications: Refilled oxycodone Partial Fill upon patient request. 10 mg PO TID 30 days PRN 90 tabs 0RF pain M17.0 - Bilateral primary osteoarthritis of knee, M19.011 - Primary osteoarthritis, right shoulder, M48.02 - Spinal stenosis, cervical region, M79.18 - Myalgia, other site oxycodone Partial Fill upon patient request. 10 mg PO TID PRN 90 tabs 0RF pain 30 days M17.0 - Bilateral primary osteoarthritis of knee, M19.011 - Primary osteoarthritis, right shoulder, M48.02 - Spinal stenosis, cervical region, M79.18 - Myalgia, other site Coding Level of Care Code Est Pt Level 3 (55468) Complex EM visit Add On G2211 Diagnoses Spondylosis of cervical spine with radiculopathy M47.22 Myofascial pain M79.18 Osteoarthritis of knees, bilateral M17.0 Osteoarthritis of right shoulder M19.011 Arthritis of left hip M16.12
[2025-05-16 13:37] VITALS: BP 115/72; PULSE 93; RESP 16; O2SAT 95; BMI 33.4
--- OUTSIDE RECORDS SUMMARY | 2025-05-16 13:59 | XMS_ITS ---
Author Name [facility] Organization Unknown Encounters Encounter Type Encounter Reason Primary Diagnosis Location Date Ambulatory [facility] [place] 04/25/2024 Ambulatory [facility] [place] 04/25/2024
--- OUTSIDE RECORDS SUMMARY | 2025-05-16 14:00 | XMS_ITS | Clinical Summary ---
Author Organization [address] [facility] Address [address] [place] [address] Phone Care Team Providers Care Power Barker Name Role Phone DereckLuis Enrique robertson Primary Care Provider [phone] Social History Tobacco Use Types Packs/Day Years [...] Years (1 of 2 - PCV) 1975 Falls Risk Assessment 09/27/2022 Hepatitis C Screening 09/27/2022 Medicare Annual Wellness Visit 09/27/2022 Social Influencers of Health Screening 09/27/2022 Zoster Vaccines (2 of 2) 05/26/2024 03/31/2024 Depression Screening 10/25/2024 COVID-19 Vaccine ( season) 2025 08/03/2024, 07/30/2023, 01/21/2023, Additional history exists Influenza Vaccine (#1) 2025 , 07/30/2023, 07/27/2022 Diabetes: Blood Sugar Control Test (HGBA1C) 07/20/2025 01/17/2025 Diabetes: Annual Urine Albumin-Creatinine Ratio (uACR) 01/17/2026 01/17/2025 Diabetes: Annual GFR (Glomerular Filtration Rate) 03/22/2026 03/22/2025, 01/17/2025 Hypertension/CHF/CAD Annual BMP Blood Test 03/22/2026 03/22/2025, 01/17/2025 Cholesterol Screening (Lipid Panel) 01/17/2030 01/17/2025 RSV Immunization Adult Patients (1 - 1-dose 75+ series) 2031 Colorectal Cancer Screening: Colonoscopy 04/04/2035 04/04/2025 HIB Vaccines Aged Out No longer eligi [...] 2:28 PM EDT Dizziness and giddiness Fatigue MICROALBUMIN CREATININE URINE RATIO Routine 01/17/2025 1:20 PM EDT Diabetes mellitus (CMS/HCC V24, CMS/HCC V28) Essential hypertension, malignant Hyperlipemia HEMOGLOBIN A1C Routine 01/17/2025 1:20 PM EDT Diabetes mellitus (CMS/HCC V24, CMS/HCC V28) Essential hypertension, malignant Hyperlipemia LIPID PANEL WITH REFLEX TO DIRECT LDL Routine 01/17/2025 1:20 PM EDT Diabetes mellitus (CMS/HCC V24, CMS/HCC V28) Essential hypertension, malignant Hyperlipemia from Last 3 Months or Most Recently Relevant to Health Maintenance Results * External Colonoscopy Report (04/04/2025 1:43 [...] analytical performance characteristics have been determined by [facility]. It has not been cleared or approved by FDA. This assay has been validated pursuant to the CLIA regulations and is used for clinical purposes. Test Performed at: [facility] [address] [address] Elias Shook MD, PhD Blood Venous blood specimen / Unknown Venipuncture / Unknown 03/22/2025 2:28 PM EDT 03/22/2025 2:28 PM EDT Shira Romero UTILITY ACCOUNTS DIRECTOR LAB BLOOD ORDERABLES Fi nal Result [facility] [address] [place] [address] * Anaplasma phagocytophilum antibodies, IGG and IGM [...] analytical performance characteristics have been determined by [facility] [place], [place]. It has not been cleared or approved by the U.S. Food and Drug Administration. This assay has been validated pursuant to the CLIA regulations and is used for clinical purposes. Test Performed by [facility], [facility], [address] [place] [address] Brock Lawrence M.D., Ph.D., Director of Laboratories , CLIA [id number] Blood Venous blood specimen / Unknown Venipuncture / Unknown 03/22/2025 2:28 PM EDT 03/22/2025 2:28 PM EDT Shira Romero UTILITY ACCOUNTS DIRECTOR LAB BLOOD ORDERABLES [facility] Result [facility] [address] [place] [address] * (ABNORMAL) CBC auto differential (03/22/2025 2:28 PM EDT) WBC 7.4 4.8 - 10.8 K/mcL LAB HEMETOLOGY METHOD 03/22/2025 7:24 PM EDT [facility] RBC 4.20(L) 4.50 - 5.50 M/mcL LAB HEMETOLOGY METHOD 03/22/2025 7:24 PM EDT [facility] Hemoglobin 13.6 13.5 - 17.5 g/dL LAB HEMETOLOGY METHOD 03/22/2025 7:24 PM EDT [facility] Hematocrit 40.5(L) 42.0 - 54.0 % LAB HEMETOLOGY METHOD 03/22/2025 7:24 PM EDT [facility] MCV 95.5 79.0 - 98.0 FL LAB HEMETOLOGY METHOD 03/22/2025 7:24 PM EDT [facility] MCH 32.1(H) 27.0 - 32.0 pcg LAB HEMETOLOGY METHOD 03/22/2025 7:24 PM EDT [facility] MCHC 33.6 32.0 - 37.0 g/dL LAB HEMETOLOGY METHOD 03/22/2025 7:[facility] RDW 12.6 11.0 - 15.0 % LAB HEMETOLOGY METHOD 03/22/2025 7:24 PM EDT [facility] Platelets 298 130 - 400 K/mcL LAB HEMETOLOGY METHOD 03/22/2025 7:24 PM EDT [facility] MPV 9.8 7.0 - 11.0 FL LAB HEMETOLOGY METHOD 03/22/2025 7:24 PM [facility] NRBC 0.0 <1.0 % LAB HEMETOLOGY METHOD 03/22/2025 7:24 PM EDT [facility] NRBC Absolute 0.00 <0.10 K/mcL LAB HEMETOLOGY METHOD 03/22/2025 7:24 PM [facility] Neutrophils Relative 55.5 % LAB HEMETOLOGY METHOD 03/22/2025 7:24 PM [facility] Lymphocytes Relative 28.7 % LAB HEMETOLOGY METHOD 03/22/2025 7:24 PM [facility] Monocytes Relative 11.0 % LAB HEMETOLOGY METHOD 03/22/2025 7:24 PM [facility] Eosinophils Relative 3.7 % LAB HEMETOLOGY METHOD 03/22/2025 7:24 PM [facility] Basophils Relative 0.8 % LAB HEMETOLOGY METHOD 03/22/2025 7:24 PM [facility] Immature Granulocytes Relative 0.3 % LAB HEMETOLOGY METHOD 03/22/2025 7:24 PM EDT [facility] Neutrophils Absolute 4.10 1.50 - 7.00 K/mcL LAB HEMETOLOGY METHOD 03/22/2025 7:24 PM EDT [facility] Lymphocytes Absolute 2.12 1.00 - 5.00 K/mcL LAB HEMETOLOGY METHOD 03/22/2025 7:24 PM EDT [facility] Monocytes Absolute 0.81 0.20 - 1.00 K/mcL LAB HEMETOLOGY METHOD 03/22/2025 7:24 PM EDT [facility] Eosinophils Absolute 0.27 0.00 - 0.50 K/mcL LAB HEMETOLOGY METHOD 03/22/2025 7:24 PM EDT [facility] Basophils Absolute 0.06 0.00 - 0.20 K/mcL LAB HEMETOLOGY METHOD 03/22/2025 7:24 PM EDT [facility] Immature Granulocytes Absolute 0.02 0.00 - 0.03 K/[facility] LAB HEMETOLOGY METHOD 03/22/2025 7:24 PM EDT [facility] Blood Venous blood specimen / Unknown Venipuncture / Unknown 03/22/2025 2:28 PM EDT 03/22/2025 2:28 PM EDT us Shira Romero UTILITY ACCOUNTS DIRECTOR LAB BLOOD ORDERABLES Fi nal Result [facility] [address] [place] [address], * Ehrlichia chaffeensis antibodies, IgG and IgM (03/22/2025 2:28 PM EDT) Ehrlichia chaffeensis Ab IgG <1:64 <1:64 03/28/2025 9:08 PM EDT [facility] Ehrlichia chaffeensis Ab IgM <1:20 <1:20 03/28/2025 9:08 PM EDT [facility] Interpretation SEE BELOW 03/28/2025 9:08 PM EDT [facility] Comment:Antibody Not Detecte d Comment SEE BELOW 03/28/2025 9:08 PM EDT [facility] Comment: Ehrlichia chaffeenis has been identified [...] analytical performance characteristics have been determined by [place]. It has not been cleared or approved by the U.S. Food and Drug Administration. This assay has been validated pursuant to the CLIA regulations and is used for clinical purposes. Test Performed by [facility], [facility], [address] [place] [address] Brock Lawrence M.D., Ph.D., Director of Laboratories , CLIA [id number] Blood Venous blood specimen / Unknown Venipuncture / Unknown 03/22/2025 2:28 PM EDT 03/22/2025 2:28 PM EDT Shira Romero NP LAB BLOOD ORDERABLES nal Result [facility] [address] [place] [address] * (ABNORMAL) Borrelia burgdorferi antibody (03/22/2025 2:28 PM EDT) [facility] Lyme IgG Antibody Positive(A) Negative LAB CHEMISTRY METHOD 03/23/2025 12:11 PM EDT [facility] Lyme IgM Antibody Negative Negative LAB CHEMISTRY METHOD 03/23/2025 12:11 PM EDT [facility] Lyme Ab Positive(A) Negative LAB CHEMISTRY METHOD 03/23/2025 12:11 PM EDT [facility] Comment: Results are consistent [...] 03/22/2025 2:28 PM EDT us Shira Romero NP LAB BLOOD ORDERABLES Fi nal Result Performing Organization Address City/[facility]/ZIP Co de Phone Number [facility] [address] [place] [address], [place] [phone] * Thyroid stimulating hormone (03/22/2025 2:28 PM EDT) TSH 2.52 0.40 - 4.00 mcIU/mL LAB CHEMISTRY METHOD 03/22/2025 8:59 PM EDT [facility] Blood Venous blood specimen / Unknown Venipuncture / Unknown 03/22/2025 2:28 PM EDT 03/22/2025 2:28 PM EDT us Shira Romero NP LAB BLOOD ORDERABLES Fi nal Result [facility] [address] [place] [address], [place] [phone] * Vitamin B12 (03/22/2025 2:28 PM EDT) Vitamin B-12 729 250 - 900 pcg/mL LAB CHEMISTRY METHOD 03/22/2025 8:07 PM EDT [facility] Blood Venous blood specimen / Unknown Venipuncture / Unknown 03/22/2025 2:28 PM EDT 03/22/2025 2:28 PM EDT Shira Romero NP LAB BLOOD ORDERABLES Fi nal Result [facility] [address] [place] [address], [place] [phone] * (ABNORMAL) Comprehensive metabolic panel (03/22/2025 2:28 PM EDT) Pathologist [facility] Sodium 137 133 - 145 mmol/L LAB CHEMISTRY METHOD 03/22/2025 8:07 PM [facility] Potassium 4.4 3.5 - 5.5 mmol/L LAB CHEMISTRY METHOD 03/22/2025 8:07 PM [facility] Chloride 99 96 - 110 mmol/L LAB CHEMISTRY METHOD 03/22/2025 8:07 PM [facility] CO2 31 21 - 32 mmol/L LAB CHEMISTRY METHOD 03/22/2025 8:07 PM [facility] Anion Gap 7 3 - 11 LAB CHEMISTRY METHOD 03/22/2025 8:07 PM [facility] Glucose 199(H) 70 - 100 mg/dL LAB CHEMISTRY METHOD 03/22/2025 8:07 PM [facility] BUN 16 5 - 25 mg/dL LAB CHEMISTRY METHOD 03/22/2025 8:07 PM [facility] Creatinine 1.04 0.70 - 1.30 mg/dL LAB CHEMISTRY METHOD 03/22/2025 8:07 PM [facility] eGFR 78 >=60 mL/min/1. 73m2 LAB CHEMISTRY METHOD 03/22/2025 8:07 PM [facility] Comment:Calculation based on the Chronic Kidney Disease Epidemiology Collaboration (CKD-EPI) equation refit without adjustment for race. BUN/Creatinine Ratio 15.4 LAB CHEMISTRY METHOD 03/22/2025 8:07 PM EDT [facility] Calcium 9.6 8.5 - 10.5 mg/dL LAB CHEMISTRY METHOD 03/22/2025 8:07 PM [facility] AST (SGOT) 60(H) 10 - 42 unit/L LAB CHEMISTRY METHOD 03/22/2025 8:07 PM [facility] ALT (SGPT) 65(H) 10 - 60 unit/L LAB CHEMISTRY METHOD 03/22/2025 8:07 PM [facility] Alkaline Phosphatase 87 42 - 121 unit/L LAB CHEMISTRY METHOD 03/22/2025 8:07 PM [facility] Total Protein 7.5 6.0 - 8.0 g/dL LAB CHEMISTRY METHOD 03/22/2025 8:07 PM [facility] Albumin 3.3 3.2 - 5.0 g/dL LAB CHEMISTRY METHOD 03/22/2025 8:07 PM [facility] Total Bilirubin 0.4 0.0 - 1.4 mg/dL LAB CHEMISTRY METHOD 03/22/2025 8:07 PM [facility] Blood Venous blood specimen / Unknown Venipuncture / Unknown 03/22/2025 2:28 PM EDT 03/22/2025 2:28 PM EDT us Shira Romero UTILITY ACCOUNTS DIRECTOR LAB BLOOD ORDERABLES Fi nal Result [facility] [address] [place] [address], * (ABNORMAL) Lipid panel with reflex to direct LDL (01/17/2025 1:20 PM EDT) Cholesterol 145 0 - 200 mg/dL LAB CHEMISTRY METHOD 01/17/2025 4:11 PM [facility] Triglycerides 237(H) 0 - 150 mg/dL LAB CHEMISTRY METHOD 01/17/2025 4:11 PM EDT [facility] HDL 41 >=40 mg/dL LAB CHEMISTRY METHOD 01/17/2025 4:11 PM EDT [facility] LDL Calculated 57 0 - 100 mg/dL LAB CHEMISTRY METHOD 01/17/2025 4:11 PM EDT [facility] VLDL Cholesterol Olegario 47.4 mg/dL LAB CHEMISTRY METHOD 01/17/2025 4:11 PM EDT [facility] Non HDL Chol. (LDL+VLDL) 104 <145 mg/dL LAB CHEMISTRY METHOD 01/17/2025 4:11 PM EDT [facility] Chol/HDL Ratio 3.5 0.0 - 4.4 LAB CHEMISTRY METHOD 01/17/2025 4:11 PM EDT [facility] Blood Venous blood specimen / Unknown Venipuncture / Unknown 01/17/2025 1:20 PM EDT 01/17/2025 1:20 PM EDT Shira Romero UTILITY ACCOUNTS DIRECTOR LAB BLOOD ORDERABLES Fi nal Result [facility] [address] [place] [address], [place] [phone] * (ABNORMAL) Microalbumin creatinine urine ratio (01/17/2025 1:20 PM EDT) Creatinine, Urine 117.0 mg/dL LAB CHEMISTRY METHOD 01/17/2025 4:19 PM EDT [facility] Microalb, Ur 49.3(H) 0.0 - 29.0 mg/L LAB CHEMISTRY METHOD 01/17/2025 4:19 PM EDT [facility] Microalb/Crea t Ratio 42(H) <30 mg/g creat LAB CHEMISTRY METHOD 01/17/2025 4:19 PM EDT [facility] Urine Urine specimen obtained by clean catch procedure / Unknown Non-blood Collection / Unknown 01/17/2025 1:20 PM EDT 01/17/2025 1:20 PM EDT Shira Romero UTILITY ACCOUNTS DIRECTOR LAB URINE ORDERABLES Fi nal Result Performing Organization Address [facility]/ZIP Co de Phone Number [facility] [address] [place] [address], [place] [phone] * (ABNORMAL) Hemoglobin A1c (01/17/2025 1:20 PM EDT) Hemoglobin A1C 7.6(H) <6.5 % LAB CHEMISTRY METHOD 01/17/2025 8:07 PM EDT [facility] Mean Bld Glu Estim. 171 mg/dL LAB CHEMISTRY METHOD 01/17/2025 8:07 PM EDT [facility] Blood Venous blood specimen / Unknown Venipuncture / Unknown 01/17/2025 1:20 PM EDT 01/17/2025 1:20 PM EDT Shira Romero NP LAB BLOOD ORDERABLES Fi nal Result Performing Organization Address [facility]/ZIP Co de Phone Number [facility] [address] [place] [address], [place] [phone] from Last 3 Months or Most Recently Relevant to Health Maintenance Insurance MEDICARE MEDICAID - [place] Care Teams Power Barker Relationship Specialty Start Date End Date Luis Enrique Fox DO [address] [place] [phone] PCP - General Internal Medicine 09/21/17
--- OUTSIDE RECORDS SUMMARY | 2025-05-16 14:00 | XMS_ITS | Data Portability ---
Author Organization [place] - [facility], Allergy Address [address] [place] [phone] Assessment Encounter Date Assessment Date Assessment LastModified [...] Name and Address Organization Details Recorded Time Otorrhea 51136227 Active 2013 Otorrhea; Location: left CMS Risk: moderate risk CMS Treatment : new problem (to examiner) : additiona l workup planned N ote: Date Diagnosed : 4 4:00 PM (388.60) Not Available [facility] 4 02:46:22 Acute myringiti s 759395 Active 2013 Acute myringiti s, unspecifi ed; Note: Date Diagnosed : 4 2:42 PM (384.00) Not Available [facility] 4 02:46:19 Allergic rhinitis 47151289 Active 2013 Rhinitis, allergic; Note: Date Diagnosed : 4 2:42 PM (477.9) Not Available [facility] 4 02:46:19 Obstructi ve sleep apnea syndrome 13301399 Active 2013 SHIVAM; Note: Date Diagnosed : 4 2:42 PM (327.23) Not Available [facility] 4 02:46:23 Hypertrop hy of nasal turbinate s 12265223 Active 2013 Turbinate hypertrop hy; Note: Date Diagnosed : 4 2:42 PM (478.0) Not Available [facility] 4 02:46:20 Otorrhea of left ear [id number] 85906 Active 2014 Otorrhea, left ear; Note: Date Diagnosed : 5 1:46 PM (H92.12) Not Available [facility] 4 02:46:13 Deviated nasal septum 907348893 Active 2015 Deviated nasal septum; Note: Date Diagnosed : 4 2:42 PM (470) ; Start Date : 4 Deviate d nasal septum; Note: Date Diagnosed : 03/12/2016 3:35 PM (J34.2) Not Available [facility] 4 02:46:12 Dysphagia 70522777 Active 2016 Dysphagia , unspecifi ed; Note: Date Diagnosed : 04/02/2017 4:39 PM (R13.10) Not Available [facility] 4 02:46:16 Sarcoidos is 50408412 Active 2016 Sarcoidos is, unspecifi ed; Note: Date Diagnosed : 04/02/2017 4:40 PM (D86.9) Not Available [facility] 4 02:46:25 Chronic pharyngit is 489652 Active 2016 Chronic sore throat; Note: Date Diagnosed : 04/02/2017 4:39 PM (J31.2) Not Available [facility] 4 02:46:18 Neoplasm of uncertain behavior of tongue 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 Active 2016 Neoplasm of uncertain behavior of tongue; Note: Date Diagnosed : 04/02/2017 5:20 PM (D37.02) Not Available [facility] 4 02:46:21 Gastroeso phageal reflux disease without esophagit is 341553473 Active 2016 Gastro-es ophageal reflux disease without esophagit is; Note: Date Diagnosed : 04/02/2017 4:40 PM (K21.9) Not Available [facility] 4 02:46:20 Benign neoplasm of tongue 22967298 Active 2016 Benign neoplasm of tongue; Note: Date Diagnosed : 05/05/2017 2:20 PM (D10.1) Not Available [facility] 4 02:46:21 Tympanosc lerosis of left middle ear 12051749242 707239 Active 2024 KODAK MUÑOZ MD [address] [place] [address], [place], [phone] , [facility] 5 15:11:16 Laryngoph aryngeal reflux 891054190 Active 2024 KODAK MUÑOZ MD [address] [place] [address], [place], [phone] , [facility] 5 15:11:29 Problem Notes None recorded. Procedures Surgical History Date Name Laterality Status Provider Name and Address Organization Details Recorded Time arthroscopy of knee completed Penny Haq [place] - [facility] 11/03/2024 14:38:36 Imaging Results None recorded. [...] Instruct ion: TK 1 T PO QHS [facility] cation nericNam e: trazodon e Not Available [...] eye drops 11/03 completed Medicati on ID: [id number] D uration Value: 14 Prescri bed By [...] ion: TK 1 T PO BID Medi cation nericNam e: morphine Not Available Not Available [...] Not Available Not Available No t Available Orange 5 mg-325 mg tablet 1-2 tablet by mouth 11/03 completed Medicati on ID: [id number] D uration Value: 7 Prescri bed By Name: Connie Dallas nd Name: Orange Se nd Method: E-Prescr ibed Sub s Allowed: subs OK Medic ationGen ericName : Orange Not Available Not Available Not Available fluticaso [...] as directed 03/03 completed Medicati on ID: [id number] B rand Name: Atrmagdyt Send Method: E-Prescr ibed Sub s Allowed: [...] Not Available TobraDex 0.3 %-0.1 % eye drops,[facility] pension 10/08 completed Medicati on ID: [id number] Pr escribed By Name: Connie Dallas nd [...] as directed 11/03 completed Medicati on ID: [id number] D uration Value: 7 Prescri bed By [...] inhalatio n 03/03 completed Medicati on ID: [id number] Br and Name: Flonase Send Method: E-Prescr [...] SNOMED-CT Code Diagnosis ICD10 Code Diagnosis Note [id number] KODAK MUÑOZ MD [facility] [address] [phone] 11/03/2024 14:21:58 11/03/2024 15:13:09 Tympanosclerosis of left middle ear [id number] 5770130 H74.02 Sarcoidosis 53534442 D86 .9 Laryngopha ryngeal reflux 870400909 K21.9 Health Concerns Section Related Observation LastModified by Organization Detangélica fernandez LastModified Time None Recorded Concern Status LastModified by Organization Details LastModified Time None Recorded Advance Directives Directive None Recorded Payers Insurance Date Sequence Insurance Name Policy Number Policy Rosa Covered Member ID Rosa Member ID Guarantor Name 11/03/2024 2 [place] [facility] Madi Montgomery [id number] Madi Montgomery 11/03/2024 1 [place]IC[place] B[place] [employer] Madi Montgomery [id number] Madi Montgomery Notes Date Note Type Note Provider Name and Address Organization Details Recorded Time 11/03/2024 text/html left earURI Dequan leon, then sneezed and felt pop in left earno otorrheagenerally decreased hearing on lefttreated with PO and topical abx reflux - on pantoprazole, still feels breakthrough reflux still 2017 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
== END 2025-05-16 14:05 | disposition home or self-care (01) ==
LOC: HO.PMC 13:27
PROVIDERS: PCP Internal Medicine; Visit Provider Registered Nurse Emergency
DX: M47.22 Other spondylosis with radiculopathy, cervical region (principal); M79.18 Myalgia, other site; M17.0 Bilateral primary osteoarthritis of knee; M19.011 Primary osteoarthritis, right shoulder; M16.12 Unilateral primary osteoarthritis, left hip
CPT/HCPCS: 99213; G2211

== ENCOUNTER → 2025-05-16 13:26 | Outpatient (BNVA) | payer MEDICARE, MEDICAID, SELFPAY | PROVIDERS: PCP Internal Medicine; Visit Provider Registered Nurse Emergency | DX: Z51.81 Encounter for therapeutic drug level monitoring (principal); M47.22 Other spondylosis with radiculopathy, cervical region; M79.18 Myalgia, other site; M17.0 Bilateral primary osteoarthritis of knee; M19.011 Primary osteoarthritis, right shoulder; M16.12 Unilateral primary osteoarthritis, left hip; Z79.891 Long term (current) use of opiate analgesic | CPT/HCPCS: 99212 ==

== ENCOUNTER 2025-08-17 11:10 | Outpatient (AMB) | payer MEDICARE, MEDICAID, SELFPAY ==
--- NOTE | 2025-08-17 11:22 | A.OFFVIS_ITS ---
Vital Signs 08/17/25 11:24 Height 5 ft 10 in Weight 237 lb BMI 34.0 BP 121/68 Blood Pressure Location Rt brachial Position Sitting Respiration 16 Pulse 88 Pulse Source Pulse Oximeter Pulse Oximetry (%) 93 Oxygen Delivery Method Room Air Intake Visit Reasons: Pill Count Intake Note: Patient here for a pill count routine of Oxycodone. Per directions patient should have 60 pills. Patient presented 65 pills. Last tookn9:30am Accompanied by: Self / Same As Patient Allergies No Known Allergies Allergy (Verified 08/17/25 11:27) HPI Comments Details: Madi presents to the office today for follow up chronic pain and chronic opioid management. Patient is prescribed oxycodone 10mg po tid prn. He arrived today with the expectation of having 60 pills, he presented 65 pills which were counted in the presence of two staff members and returned to the patient in the original prescription bottle. Pain is reported today as 7/10 and last dose of pain medication was taken at 9:30am today. Denies side effects including somnolence, constipation, urinary retention, itching, dyspnea, rash, dizziness or weakness. Prior visit with Dr Turner: h/o neck pain low back pain as well as right shoulder and bilateral knee pain, which have been present for many years.?the neck pain starts midline and radiates to bilateral shoulders, with associated numbness down the entire left arm and moderate pain from the shoulder to the elbow.? He denies any significant weakness of bilateral upper extremities.? In the past he was under the care of Dr. Diaz and managed with morphine 30 mg twice a day as well as multiple injections and RFA for the lumbar spine.? Most recently, he has been seen at [facility].? They have treated him with injections, the last being a few months ago with a left-sided neck injection.? He reports significant pain relief for the 1st month and then slowly his pain returns by the end of the 2nd month.? He reports seeing a neurosurgeon in the past and was told he was not a surgical candidate. He also reports trialing buprenorphine in the past with Dr. Diaz, which he states had negative effect on his motor function.? He has tried and failed physical therapy multiple times.? In the past he had good relief with chiropractic manipulation but has not done this for many year.? For quite some time he was in our office on chronic opioid program,?He was suspended in our office from opioid program because he had a pill count which was 20 pills short.? He was suspended for 6 months because he was low risk for opioid addiction.? If he will be found to have in discrepancies with his pill count again his suspension now will before the full year. [facility] Medical History Osteomyelitis of foot Hyponatremia Hypertension Amputation of toe of right foot Diabetic infection of right foot Diabetes mellitus type 2, insulin dependent Chronic HFrEF (heart failure with reduced ejection fraction) Spondylosis of cervical spine with radiculopathy Myofascial pain Osteoarthritis of knees, bilateral Osteoarthritis of right shoulder Cervical spinal stenosis Arthritis of left hip Review of Systems Const All systems reviewed & are unremarkable except as noted in HPI and below Physical Exam Vital Signs: Last Vital Signs Pulse 88 08/17/25 11:24 Resp 16 08/17/25 11:24 BP 121/68 08/17/25 11:24 Pulse Ox 93 08/17/25 11:24 Oxygen Delivery Method Room Air 08/17/25 11:24 BMI result Body Mass Index 34.0 General: awake, oriented. Answers questions appropriately. Appears tired. Speech clear. Skin: warm, dry, intact HEENT: Normocephalic. Hearing intact. Cardiac: External chest normal in appearance. Respiratory: No cough, audible wheezing or stridor. Abdomen: without gross distension. MS: No obvious swelling or deformity Able to transition from sit to stand unassisted. Neurological: Oriented to person, place, time and situation. Thought process intact. Psychiatric: Appropriate mood and affect. Good judgment and insight. Assessment & Plan Assessment & Plan (1) Spondylosis of cervical spine with radiculopathy: Code(s): M47.22 - Other spondylosis with radiculopathy, cervical region Category: Medical (2) Myofascial pain: Code(s): M79.18 - Myalgia, other site Category: Medical (3) Osteoarthritis of knees, bilateral: Code(s): M17.0 - Bilateral primary osteoarthritis of knee Category: Medical (4) Osteoarthritis of right shoulder: Code(s): M19.011 - Primary osteoarthritis, right shoulder Category: Medical (5) Arthritis of left hip: Code(s): M16.12 - Unilateral primary osteoarthritis, left hip Category: Medical Plan [place]pat was reviewed and without concerns. No obvious signs of diversion, abuse or misuse of the opioid medications. Prescription for oxycodone 10mg po tid prn sent Patient has Narcan at home in his trained in the use. All questions and concerns have been answered and patient agrees with the plan. Follow-up in the office in 1 month, sooner if needed. Note: He was suspended from the opioid program previously because he was 20 pills short. His risk was mild and he was suspended for 6 month. If there is a second violation his suspension will be for a full year. Medications: Refilled oxycodone Partial Fill upon patient request. 10 mg PO TID PRN 90 tabs 0RF pain 30 days M17.0 - Bilateral primary osteoarthritis of knee, M19.011 - Primary osteoarthritis, right shoulder, M48.02 - Spinal stenosis, cervical region, M79.18 - Myalgia, other site Coding Level of Care Code Est Pt Level 3 (75918) Complex EM visit Add On G2211 Diagnoses Spondylosis of cervical spine with radiculopathy M47.22 Myofascial pain M79.18 Osteoarthritis of knees, bilateral M17.0 Osteoarthritis of right shoulder M19.011 Arthritis of left hip M16.12
[2025-08-17 11:24] VITALS: BP 121/68; PULSE 88; RESP 16; O2SAT 93; BMI 34.0
--- OUTSIDE RECORDS SUMMARY | 2025-08-17 13:33 | XMS_ITS | Clinical Summary ---
Author Organization [facility] Address [address] [place] [address] Phone Care Team Providers Care Batting Machine Operator Name Role Phone DereckLuis Enrique robertson Primary Care Provider [phone] Social History Tobacco Use Types Packs/Day Years [...] 08/03/2024, 07/30/2023, 01/21/2023, Additional history exists Diabetes: Annual Urine Albumin-Creatinine Ratio (uACR) 01/17/2026 01/17/2025 Diabetes: Blood Sugar Control Test (HGBA1C) 01/23/2026 07/25/2025, 01/17/2025 Diabetes: Annual GFR (Glomerular Filtration Rate) 07/25/2026 07/25/2025, 03/22/2025, 01/17/2025 Hypertension/CHF/CAD Annual BMP Blood Test 07/25/2026 07/25/2025, 03/22/2025, 01/17/2025 Cholesterol Screening (Lipid Panel) 07/25/2030 07/25/2025, 01/17/2025 RSV Immunization Adult Patients (1 - 1-dose 75+ series) 2031 Colorectal Cancer Screening: Colonoscopy 04/04/2035 04/04/2025 Influenza Vaccine Completed 07/25/2025, , 07/30/2023, Additional history exists HIB Vaccines Aged Out [...] Procedure Name Priority Date/Time Associated Diagnosis Comments HEMOGLOBIN A1C Routine 07/25/2025 1:11 PM EDT Hyperlipemia Essential hypertension, malignant Myxedema heart disease Abnormal finding of blood chemistry, unspecified COMPREHENSIVE METABOLIC PANEL Routine 07/25/2025 1:11 PM EDT Hyperlipemia Essential hypertension, malignant Myxedema heart disease THYROID STIMULATING HORMONE Routine 07/25/2025 1:11 PM EDT Hyperlipemia Essential hypertension, malignant Myxedema heart disease CREATINE KINASE Routine 07/25/2025 1:11 PM EDT Hyperlipemia Essential hypertension, malignant Myxedema heart disease LIPID PANEL WITH REFLEX TO DIRECT LDL Routine 07/25/2025 1:11 PM EDT Hyperlipemia Essential hypertension, malignant Myxedema heart disease EXTERNAL COLONOSCOPY REPORT Routine 04/04/2025 1:43 PM EDT MICROALBUMIN CREATININE URINE RATIO Routine 01/17/2025 1:20 PM EDT Diabetes mellitus ([facility] V24, [facility] V28) Essential hypertension, malignant Hyperlipemia from Last 3 Months or Most Recently Relevant to Health Maintenance Results * (ABNORMAL) Lipid panel with reflex to direct LDL (07/25/2025 1:11 PM EDT) Cholesterol 124 0 - 200 mg/dL LAB CHEMISTRY METHOD 07/25/2025 4:19 PM EDT [facility] Triglycerides 160(H) 0 - 150 mg/dL LAB CHEMISTRY METHOD 07/25/2025 4:19 PM EDT [facility] HDL 37(L) >=40 mg/dL LAB CHEMISTRY METHOD 07/25/2025 4:19 PM EDT [facility] LDL Calculated 55 0 - 100 mg/dL LAB CHEMISTRY METHOD 07/25/2025 4:19 PM EDT [facility] Comment:Estimated LDL Calcul ated using equation: Total cholesterol - HDL cholesterol - (Triglycerides/5) VLDL Cholesterol Olegario 32 mg/dL LAB CHEMISTRY METHOD 07/25/2025 4:19 PM EDT [facility] Non HDL Chol. (LDL+VLDL) 87 <145 mg/dL LAB CHEMISTRY METHOD 07/25/2025 4:19 PM EDT [facility] Chol/HDL Ratio 3.4 0.0 - 4.4 LAB CHEMISTRY METHOD 07/25/2025 4:19 PM T [facility] Blood Venous blood specimen / Unknown Venipuncture / Unknown 07/25/2025 1:11 PM EDT 07/25/2025 1:11 PM EDT us Shira Romero NP LAB BLOOD ORDERABLES Fi nal Result [facility] [address] [place] [address], [place] [phone] * Thyroid stimulating hormone (07/25/2025 1:11 PM EDT) [facility] TSH 3.81 0.40 - 4.00 mcIU/mL LAB CHEMISTRY METHOD 07/25/2025 4:44 PM EDT [facility] Blood Venous blood specimen / Unknown Venipuncture / Unknown 07/25/2025 1:11 PM EDT 07/25/2025 1:11 PM EDT us Shira Romero NP LAB BLOOD ORDERABLES Fi nal Result Performing Organization Address [facility]/ZIP Co de Phone Number [facility] [address] [place] [address], [place] [phone] * (ABNORMAL) Hemoglobin A1c (07/25/2025 1:11 PM EDT) [facility] Hemoglobin A1C 8.2(H) <6.5 % LAB CHEMISTRY METHOD 07/25/2025 10:11 PM EDT [facility] Mean Bld Glu Estim. 189 mg/dL LAB CHEMISTRY METHOD 07/25/2025 10:11 PM EDT [facility] Blood Venous blood specimen / Unknown Venipuncture / Unknown 07/25/2025 1:11 PM EDT 07/25/2025 1:11 PM EDT Shira Romero SWIMMING POOL ATTENDANT LAB BLOOD ORDERABLES Fi nal Result [facility] [address] [place] [address], [place] [phone] * Creatine kinase (07/25/2025 1:11 PM EDT) [facility] Total CK 43 22 - 269 unit/L LAB CHEMISTRY METHOD 07/25/2025 4:17 PM EDT [facility] Blood Venous blood specimen / Unknown Venipuncture / Unknown 07/25/2025 1:11 PM EDT 07/25/2025 1:11 PM EDT Shira Romero NP LAB BLOOD ORDERABLES Fi nal Result [facility] [address] [place] [address], * (ABNORMAL) Comprehensive metabolic panel (07/25/2025 1:11 PM EDT) Sodium 135 133 - 145 mmol/L LAB CHEMISTRY METHOD 07/25/2025 4:[address] [facility] Potassium 4.3 3.5 - 5.5 mmol/L LAB CHEMISTRY METHOD 07/25/2025 4:[address] [facility] Chloride 99 96 - 110 mmol/L LAB CHEMISTRY METHOD 07/25/2025 4:[address] [facility] CO2 28 21 - 32 mmol/L LAB CHEMISTRY METHOD 07/25/2025 4:[address] [facility] Anion Gap 8 3 - 11 LAB CHEMISTRY METHOD 07/25/2025 4:[address] [facility] Glucose 223(H) 70 - 100 mg/dL LAB CHEMISTRY METHOD 07/25/2025 4:[address] [facility] BUN 11 5 - 25 mg/dL LAB CHEMISTRY METHOD 07/25/2025 4:[address] [facility] Creatinine 1.06 0.70 - 1.30 mg/dL LAB CHEMISTRY METHOD 07/25/2025 4:[address] [facility] eGFR 76 >=60 mL/min/1. 73m2 LAB CHEMISTRY METHOD 07/25/2025 4:[address] [facility] Comment:Calculation based on the Chronic Kidney Disease Epidemiology Collaboration (CKD-EPI) equation refit without adjustment for race. BUN/Creatinine Ratio 10.4 LAB CHEMISTRY METHOD 07/25/2025 4:[address] [facility] Calcium 10.1 8.5 - 10.5 mg/dL LAB CHEMISTRY METHOD 07/25/2025 4:[address] [facility] AST (SGOT) 89(H) 10 - 42 unit/L LAB CHEMISTRY METHOD 07/25/2025 4:[address] [facility] ALT (SGPT) 74(H) 10 - 60 unit/L LAB CHEMISTRY METHOD 07/25/2025 4:[address] [facility] Alkaline Phosphatase 94 42 - 121 unit/L LAB CHEMISTRY METHOD 07/25/2025 4:[address] [facility] Total Protein 7.4 6.0 - 8.0 g/dL LAB CHEMISTRY METHOD 07/25/2025 4:[address] [facility] Albumin 3.3 3.2 - 5.0 g/dL LAB CHEMISTRY METHOD 07/25/2025 4:[address] [facility] Total Bilirubin 0.4 0.0 - 1.4 mg/dL LAB CHEMISTRY METHOD 07/25/2025 4:[address] [facility] Blood Venous blood specimen / Unknown Venipuncture / Unknown 07/25/2025 1:11 PM EDT 07/25/2025 1:11 PM EDT Shira Romero SWIMMING POOL ATTENDANT LAB BLOOD ORDERABLES Fi nal Result [facility] [address] [place] [address], * External Colonoscopy Report (04/04/2025 1:43 PM EDT) Anatomical Region Laterality Modality Endoscopy us Historical Provider GI~PROCEDURE ORDERABLES F inal Result * (ABNORMAL) Microalbumin creatinine urine ratio (01/17/2025 1:20 PM EDT) Creatinine, Urine 117.0 mg/dL LAB CHEMISTRY METHOD 01/17/2025 4:19 PM EDT [facility] Microalb, Ur 49.3(H) 0.0 - 29.0 mg/L LAB CHEMISTRY METHOD 01/17/2025 4:19 PM EDT [facility] Microalb/Crea t Ratio 42(H) <30 mg/g creat LAB CHEMISTRY METHOD 01/17/2025 4:19 PM EDT [facility] Urine Urine specimen obtained by clean catch procedure / Unknown Non-blood Collection / Unknown 01/17/2025 1:20 PM EDT 01/17/2025 1:20 PM EDT us Shira Romero SWIMMING POOL ATTENDANT LAB URINE ORDERABLES Fi nal Result [facility] [address] [place] [address], from Last 3 Months or Most Recently Relevant to Health Maintenance Insurance MEDICARE [place]ICA[place] - [place] Care Teams Batting Machine Operator Relationship Specialty Start Date End Date Luis Enrique Fox DO [address] [place] [phone] PCP - General Internal Medicine 09/21/17
== END 2025-08-17 11:46 | disposition home or self-care (01) ==
LOC: HO.PMC 11:11
PROVIDERS: PCP Internal Medicine; Visit Provider Registered Nurse Emergency
DX: M47.22 Other spondylosis with radiculopathy, cervical region (principal); M79.18 Myalgia, other site; M17.0 Bilateral primary osteoarthritis of knee; M19.011 Primary osteoarthritis, right shoulder; M16.12 Unilateral primary osteoarthritis, left hip
CPT/HCPCS: 99213; G2211

== ENCOUNTER → 2025-08-17 11:10 | Outpatient (BNVA) | payer MEDICARE, MEDICAID, SELFPAY | PROVIDERS: PCP Internal Medicine; Visit Provider Registered Nurse Emergency | DX: M47.22 Other spondylosis with radiculopathy, cervical region (principal); M79.18 Myalgia, other site; M17.0 Bilateral primary osteoarthritis of knee; M19.011 Primary osteoarthritis, right shoulder; M16.12 Unilateral primary osteoarthritis, left hip; F11.90 Opioid use, unspecified, uncomplicated | CPT/HCPCS: 99212 ==

== ENCOUNTER 2025-09-14 11:06 | Outpatient (AMB) | payer MEDICARE, MEDICAID, SELFPAY ==
--- NOTE | 2025-09-14 11:36 | MHC.OFFVIS ---
Vital Signs 09/14/25 11:42 Height 5 ft 10 in Weight 232 lb BMI 33.3 BP 120/70 Blood Pressure Location Rt brachial Position Sitting Respiration 16 Pulse 72 Pulse Source Pulse Oximeter Pulse Oximetry (%) 92 Oxygen Delivery Method Room Air Intake Visit Reasons: Pill Count Intake Note: Patient here for a pill count of Oxycodone per directions patient should have 66 pills. Patient presented 75 pills. Last took 10am. Home Health Billing Specialist Required: No Accompanied by: Self / Same As Patient Allergies No Known Allergies Allergy (Verified 09/14/25 11:36) HPI Comments Details: Madi presents to the office today for follow up chronic pain and chronic opioid management. Patient is prescribed oxycodone 10mg po tid prn. He arrived today with the expectation of having 66 pills, he presented 75 pills which were counted in the presence of two staff members and returned to the patient in the original prescription bottle. Pain is reported today as 8/10 and last dose of pain medication was taken at 10:00am today. Denies side effects including somnolence, constipation, urinary retention, itching, dyspnea, rash, dizziness or weakness. Prior visit with Dr Turner: h/o neck pain low back pain as well as right shoulder and bilateral knee pain, which have been present for many years.?the neck pain starts midline and radiates to bilateral shoulders, with associated numbness down the entire left arm and moderate pain from the shoulder to the elbow.? He denies any significant weakness of bilateral upper extremities.? In the past he was under the care of Dr. Diaz and managed with morphine 30 mg twice a day as well as multiple injections and RFA for the lumbar spine.? Most recently, he has been seen at [facility].? They have treated him with injections, the last being a few months ago with a left-sided neck injection.? He reports significant pain relief for the 1st month and then slowly his pain returns by the end of the 2nd month.? He reports seeing a neurosurgeon in the past and was told he was not a surgical candidate. He also reports trialing buprenorphine in the past with Dr. Diaz, which he states had negative effect on his motor function.? He has tried and failed physical therapy multiple times.? In the past he had good relief with chiropractic manipulation but has not done this for many year.? For quite some time he was in our office on chronic opioid program,?He was suspended in our office from opioid program because he had a pill count which was 20 pills short.? He was suspended for 6 months because he was low risk for opioid addiction.? If he will be found to have in discrepancies with his pill count again his suspension now will before the full year. [facility] Medical History Osteomyelitis of foot Hyponatremia Hypertension Amputation of toe of right foot Diabetic infection of right foot Diabetes mellitus type 2, insulin dependent Chronic HFrEF (heart failure with reduced ejection fraction) Spondylosis of cervical spine with radiculopathy Myofascial pain Osteoarthritis of knees, bilateral Osteoarthritis of right shoulder Cervical spinal stenosis Arthritis of left hip Review of Systems Const All systems reviewed & are unremarkable except as noted in HPI and below Physical Exam Exam Exam: General: awake, oriented. Answers questions appropriately. Appears tired. Speech clear. Skin: warm, dry, intact HEENT: Normocephalic. Hearing intact. Cardiac: External chest normal in appearance. Respiratory: No cough, audible wheezing or stridor. Abdomen: without gross distension. MS: No obvious swelling or deformity Able to transition from sit to stand unassisted. Neurological: Oriented to person, place, time and situation. Thought process intact. Psychiatric: Appropriate mood and affect. Good judgment and insight. Vital Signs: Last Vital Signs Pulse 72 09/14/25 11:42 Resp 16 09/14/25 11:42 BP 120/70 09/14/25 11:42 Pulse Ox 92 09/14/25 11:42 Oxygen Delivery Method Room Air 09/14/25 11:42 BMI result Body Mass Index 33.3 Assessment & Plan Assessment & Plan (1) Spondylosis of cervical spine with radiculopathy: Code(s): M47.22 - Other spondylosis with radiculopathy, cervical region Category: Medical (2) Myofascial pain: Code(s): M79.18 - Myalgia, other site Category: Medical (3) Osteoarthritis of knees, bilateral: Code(s): M17.0 - Bilateral primary osteoarthritis of knee Category: Medical (4) Osteoarthritis of right shoulder: Code(s): M19.011 - Primary osteoarthritis, right shoulder Category: Medical (5) Arthritis of left hip: Code(s): M16.12 - Unilateral primary osteoarthritis, left hip Category: Medical Plan Masspat was reviewed and without concerns. No obvious signs of diversion, abuse or misuse of the opioid medications. Prescription for oxycodone 10mg po tid prn sent Patient has Narcan at home in his trained in the use. All questions and concerns have been answered and patient agrees with the plan. Follow-up in the office in 1 month, sooner if needed. Note: He was suspended from the opioid program previously because he was 20 pills short. His risk was mild and he was suspended for 6 month. If there is a second violation his suspension will be for a full year. Medications: Refilled oxycodone Partial Fill upon patient request. 10 mg PO TID PRN 90 tabs 0RF pain 30 days M17.0 - Bilateral primary osteoarthritis of knee, M19.011 - Primary osteoarthritis, right shoulder, M48.02 - Spinal stenosis, cervical region, M79.18 - Myalgia, other site Coding Level of Care Code Est Pt Level 3 (11530) Complex visit Add On G2211 Diagnoses Spondylosis of cervical spine with radiculopathy M47.22 Myofascial pain M79.18 Osteoarthritis of knees, bilateral M17.0 Osteoarthritis of right shoulder M19.011 Arthritis of left hip M16.12
[2025-09-14 11:42] VITALS: BP 120/70; PULSE 72; RESP 16; O2SAT 92; BMI 33.3
--- OUTSIDE RECORDS SUMMARY | 2025-09-14 11:58 | XMS_ITS | Data Portability ---
Author Organization [place] - [facility], Allergy Address [address] [place] [id number] Assessment Encounter Date Assessment Date Assessment LastModified [...] and Address Organization Details Recorded Time Otorrhea 30770632 Active 2013 Otorrhea; Location: left CMS Risk: moderate risk CMS Treatment : new problem (to examiner) : additiona l workup planned N ote: Date Diagnosed : 4 4:00 PM (388.60) Not Available [facility] 4 02:46:22 Acute myringiti s 194273 Active 2013 Acute myringiti s, unspecifi ed; Note: Date Diagnosed : 4 2:42 PM (384.00) Not Available [facility] 4 02:46:19 Allergic rhinitis 05462849 Active 2013 Rhinitis, allergic; Note: Date Diagnosed : 4 2:42 PM (477.9) Not Available [facility] 4 02:46:19 Obstructi ve sleep apnea syndrome 22576307 Active 2013 SHIVAM; Note: Date Diagnosed : 4 2:42 PM (327.23) Not Available [facility] 4 02:46:23 Hypertrop hy of nasal turbinate s 83054687 Active 2013 Turbinate hypertrop hy; Note: Date Diagnosed : 4 2:42 PM (478.0) Not Available [facility] 4 02:46:20 Otorrhea of left ear 57602007393 93476 Active 2014 Otorrhea, left ear; Note: Date Diagnosed : 5 1:46 PM (H92.12) Not Available [facility] 4 02:46:13 Deviated nasal septum 767812393 Active 2015 Deviated nasal septum; Note: Date Diagnosed : 4 2:42 PM (470) ; Start Date : 4 Deviate d nasal septum; Note: Date Diagnosed : 03/12/2016 3:35 PM (J34.2) Not Available [facility] 4 02:46:12 Dysphagia 71529784 Active 2016 Dysphagia , unspecifi ed; Note: Date Diagnosed : 04/02/2017 4:39 PM (R13.10) Not Available [facility] 4 02:46:16 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 Active 2016 Sarcoidos is, unspecifi ed; Note: Date Diagnosed : 04/02/2017 4:40 PM (D86.9) Not Available [facility] 4 02:46:25 Chronic pharyngit is 549285 Active 2016 Chronic sore throat; Note: Date Diagnosed : 04/02/2017 4:39 PM (J31.2) Not Available [facility] 4 02:46:18 Neoplasm of uncertain behavior of tongue 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; Note: Date Diagnosed : 04/02/2017 5:20 PM (D37.02) Not Available [facility] 4 02:46:21 Gastroeso phageal reflux disease without esophagit is 202634345 Active 2016 Gastro-es ophageal reflux disease without esophagit is; Note: Date Diagnosed : 04/02/2017 4:40 PM (K21.9) Not Available [facility] 4 02:46:20 Benign neoplasm of tongue 34406733 Active 2016 Benign neoplasm of tongue; Note: Date Diagnosed : 05/05/2017 2:20 PM (D10.1) Not Available [facility] 4 02:46:21 Tympanosc lerosis of left middle ear 87978858341 747687 Active 2024 KODAK MUÑOZ MD [address] [place] [address], [place], [phone] , [facility] 5 15:11:16 Laryngoph aryngeal reflux 829835919 Active 2024 KODAK MUÑOZ MD [address] [place] [address], [place], [phone] , [facility] 5 15:11:29 Problem Notes None recorded. Procedures Surgical History Date Name Laterality Status Provider Name and Address Organization Details Recorded Time arthroscopy of knee completed Penny Haq [place] - [facility] 11/03/2024 14:38:36 Imaging Results None [...] Instruct ion: TK 1 T PO QHS [facility] cation nericNam e: trazodon e Not Available [...] eye drops 11/03 completed Medicati on ID: [id number] D uration Value: 14 Prescri bed By [...] Not Available Not Available No t Available [place] 5 mg-325 mg tablet 1-2 tablet by mouth 11/03 completed Medicati on ID: [id number] D uration Value: 7 Prescri bed By Name: Connie [place] nd Name: [place] Se nd Method: E-Prescr ibed Sub s Allowed: subs OK Medic ationGen ericName : [place] Not Available Not Available Not Available fluticaso [...] as directed 03/03 completed Medicati on ID: [id number] B rand Name: Atrmagdyt Send Method: E-Prescr [...] Not Available TobraDex 0.3 %-0.1 % eye drops,[facility] pension 10/08 completed Medicati on ID: [id number] Pr escribed By Name: Connie Dallas nd [...] as directed 11/03 completed Medicati on ID: [id number] D uration Value: 7 Prescri bed By [...] inhalatio n 03/03 completed Medicati on ID: [id number] Br and Name: Flonase Send Method: E-Prescr [...] Diagnosis SNOMED-CT Code Diagnosis ICD10 Code Diagnosis IMO Codes Diagnosis Note [id number] KODAK MUÑOZ MD [facility] [address] [phone] 11/03/2024 14:21:58 11/03/2024 15:13:09 Tympanosclerosis of left middle ear 2511079430 9107381 H74.02 Sarcoidosis 88073872 D86 .9 Laryngopha ryngeal reflux 532744126 K21.9 Health Concerns Section Related Observation LastModified by Organization Detai ls LastModified Time None Recorded Concern Status LastModified by Organization Details LastModified Time None Recorded Advance Directives Directive None Recorded Payers Insurance Date Sequence Insurance Name Policy Number Policy Rosa Covered Member ID Rosa Member ID Guarantor Name 11/03/2024 2 [place] [facility] Madi Montgomery [id number] Madi Montgomery 11/03/2024 1 [place] B[place] [employer] Madi Montgomery [id number] Madi Montgomery Notes Date Note Type Note Provider Name and Address Organization Details Recorded Time 11/03/2024 text/html ROS as noted in the HPI left earURI August, then sneezed and felt pop in left earno otorrheagenerally decreased hearing on lefttreated with PO and topical abx reflux - on pantoprazole, still feels breakthrough reflux still 2016 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
--- OUTSIDE RECORDS SUMMARY | 2025-09-14 11:58 | XMS_ITS | Clinical Summary ---
Author Organization [address] [facility] Address [address] [place] [address] Phone Care Team Providers Care Dictaphone Transcriber Name Role Phone DereckLuis Enrique robertson Primary Care Provider [phone] Social History Tobacco Use Types Packs/Day Years [...] Routine 01/17/2025 1:20 PM EDT Diabetes mellitus ([facility] V24, [facility] V28) Essential hypertension, malignant Hyperlipemia from Last 3 Months or Most Recently Relevant to Health Maintenance Results * (ABNORMAL) Lipid panel with reflex to direct LDL (07/25/2025 1:11 PM EDT) Cholesterol 124 0 - 200 mg/dL LAB CHEMISTRY METHOD 07/25/2025 4:19 PM EDT [facility] Triglycerides 160(H) 0 - 150 mg/dL LAB CHEMISTRY METHOD 07/25/2025 4:19 PM EDT [facility] HDL 37(L) >=40 mg/dL LAB CHEMISTRY METHOD 07/25/2025 4:19 PM EDT [facility] LDL Calculated 55 0 - 100 mg/dL LAB CHEMISTRY METHOD 07/25/2025 4:19 PM EDT [facility] Comment:Estimated LDL Calcul ated using equation: Total cholesterol - HDL cholesterol - (Triglycerides/5) VLDL Cholesterol Olegario 32 mg/dL LAB CHEMISTRY METHOD 07/25/2025 4:19 PM EDT [facility] Non HDL Chol. (LDL+VLDL) 87 <145 mg/dL LAB CHEMISTRY METHOD 07/25/2025 4:19 PM EDT [facility] Chol/HDL Ratio 3.4 0.0 - 4.4 LAB CHEMISTRY METHOD 07/25/2025 4:19 PM T [facility] Blood Venous blood specimen / Unknown Venipuncture / Unknown 07/25/2025 1:11 PM EDT 07/25/2025 1:11 PM EDT us Shira Romero NP LAB BLOOD ORDERABLES Fi nal Result [facility] [address] [place] [address], [place] [phone] * Thyroid stimulating hormone (07/25/2025 1:11 PM EDT) [facility] TSH 3.81 0.40 - 4.00 mcIU/mL LAB CHEMISTRY METHOD 07/25/2025 4:44 PM EDT [facility] Blood Venous blood specimen / Unknown Venipuncture / Unknown 07/25/2025 1:11 PM EDT 07/25/2025 1:11 PM EDT us Shira Romero NP LAB BLOOD ORDERABLES Fi nal Result Performing Organization Address [facility]/ZIP Co de Phone Number [facility] [address] [place] [address], [place] [phone] * (ABNORMAL) Hemoglobin A1c (07/25/2025 1:11 PM EDT) [facility] Hemoglobin A1C 8.2(H) <6.5 % LAB CHEMISTRY METHOD 07/25/2025 10:11 PM EDT [facility] Mean Bld Glu Estim. 189 mg/dL LAB CHEMISTRY METHOD 07/25/2025 10:11 PM EDT [facility] Blood Venous blood specimen / Unknown Venipuncture / Unknown 07/25/2025 1:11 PM EDT 07/25/2025 1:11 PM EDT Shira Romero OFFICE TECHNOLOGIST LAB BLOOD ORDERABLES Fi nal Result [facility] [address] [place] [address], [place] [phone] * Creatine kinase (07/25/2025 1:11 PM EDT) [facility] Total CK 43 22 - 269 unit/L LAB CHEMISTRY METHOD 07/25/2025 4:17 PM EDT [facility] Blood Venous blood specimen / Unknown Venipuncture / Unknown 07/25/2025 1:11 PM EDT 07/25/2025 1:11 PM EDT Shira Romero NP LAB BLOOD ORDERABLES Fi nal Result [facility] [address] [place] [address], * (ABNORMAL) Comprehensive metabolic panel (07/25/2025 1:11 PM EDT) Sodium 135 133 - 145 mmol/L LAB CHEMISTRY METHOD 07/25/2025 4:19 PM [facility] Potassium 4.3 3.5 - 5.5 mmol/L LAB CHEMISTRY METHOD 07/25/2025 4:19 PM [facility] Chloride 99 96 - 110 mmol/L LAB CHEMISTRY METHOD 07/25/2025 4:19 PM [facility] CO2 28 21 - 32 mmol/L LAB CHEMISTRY METHOD 07/25/2025 4:19 PM [facility] Anion Gap 8 3 - 11 LAB CHEMISTRY METHOD 07/25/2025 4:19 PM [facility] Glucose 223(H) 70 - 100 mg/dL LAB CHEMISTRY METHOD 07/25/2025 4:19 PM [facility] BUN 11 5 - 25 mg/dL LAB CHEMISTRY METHOD 07/25/2025 4:19 PM [facility] Creatinine 1.06 0.70 - 1.30 mg/dL LAB CHEMISTRY METHOD 07/25/2025 4:19 PM [facility] eGFR 76 >=60 mL/min/1. 73m2 LAB CHEMISTRY METHOD 07/25/2025 4:19 PM [facility] Comment:Calculation based on the Chronic Kidney Disease Epidemiology Collaboration (CKD-EPI) equation refit without adjustment for race. BUN/Creatinine Ratio 10.4 LAB CHEMISTRY METHOD 07/25/2025 4:19 PM [facility] Calcium 10.1 8.5 - 10.5 mg/dL LAB CHEMISTRY METHOD 07/25/2025 4:19 PM [facility] AST (SGOT) 89(H) 10 - 42 unit/L LAB CHEMISTRY METHOD 07/25/2025 4:19 PM [facility] ALT (SGPT) 74(H) 10 - 60 unit/L LAB CHEMISTRY METHOD 07/25/2025 4:19 PM [facility] Alkaline Phosphatase 94 42 - 121 unit/L LAB CHEMISTRY METHOD 07/25/2025 4:19 PM [facility] Total Protein 7.4 6.0 - 8.0 g/dL LAB CHEMISTRY METHOD 07/25/2025 4:19 PM [facility] Albumin 3.3 3.2 - 5.0 g/dL LAB CHEMISTRY METHOD 07/25/2025 4:19 PM [facility] Total Bilirubin 0.4 0.0 - 1.4 mg/dL LAB CHEMISTRY METHOD 07/25/2025 4:19 PM [facility] Blood Venous blood specimen / Unknown Venipuncture / Unknown 07/25/2025 1:11 PM EDT 07/25/2025 1:11 PM EDT Shira Romero OFFICE TECHNOLOGIST LAB BLOOD ORDERABLES Fi nal Result [facility] [address] [place] [address], * External Colonoscopy Report (04/04/2025 1:43 PM EDT) Anatomical Region Laterality Modality Endoscopy us Historical Provider GI~PROCEDURE ORDERABLES F inal Result * (ABNORMAL) Microalbumin creatinine urine ratio (01/17/2025 1:20 PM EDT) Creatinine, Urine 117.0 mg/dL LAB CHEMISTRY METHOD 01/17/2025 4:19 PM EDT [facility] Microalb, Ur 49.3(H) 0.0 - 29.0 mg/L LAB CHEMISTRY METHOD 01/17/2025 4:19 PM EDT [facility] Microalb/Crea t Ratio 42(H) <30 mg/g creat LAB CHEMISTRY METHOD 01/17/2025 4:19 PM EDT [facility] Urine Urine specimen obtained by clean catch procedure / Unknown Non-blood Collection / Unknown 01/17/2025 1:20 PM EDT 01/17/2025 1:20 PM EDT us Shira Romero OFFICE TECHNOLOGIST LAB URINE ORDERABLES Fi nal Result [facility] [address] [place] [address], from Last 3 Months or Most Recently Relevant to Health Maintenance Insurance MEDICARE [place]ICAID - [place] Care Teams Dictaphone Transcriber Relationship Specialty Start Date End Date Luis Enrique Fox DO [address] [place] [phone] PCP - General Internal Medicine 09/21/17
== END 2025-09-14 11:59 | disposition home or self-care (01) ==
PROVIDERS: PCP Internal Medicine; Visit Provider Registered Nurse Emergency
DX: M47.22 Other spondylosis with radiculopathy, cervical region (principal); M79.18 Myalgia, other site; M17.0 Bilateral primary osteoarthritis of knee; M19.011 Primary osteoarthritis, right shoulder; M16.12 Unilateral primary osteoarthritis, left hip
CPT/HCPCS: 99213; G2211

== ENCOUNTER → 2025-09-14 11:06 | Outpatient (BNVA) | payer MEDICARE, MEDICAID, SELFPAY | PROVIDERS: PCP Internal Medicine; Visit Provider Registered Nurse Emergency | DX: M17.0 Bilateral primary osteoarthritis of knee (principal); M47.22 Other spondylosis with radiculopathy, cervical region; M79.18 Myalgia, other site; M19.011 Primary osteoarthritis, right shoulder; M16.12 Unilateral primary osteoarthritis, left hip; Z79.891 Long term (current) use of opiate analgesic | CPT/HCPCS: 99212 ==